=== PATIENT | female | born 1965 | race Hispanic/Latino ===

== ENCOUNTER 2019-09-14 13:21 | Emergency (ER) | payer BC, OTHER ==
[2019-09-14 13:56] LABS: CREATININE 0.7 mg/dL (0.5-1.5); POTASSIUM 3.6 mmol/L (3.5-5.1)
[2019-09-14 14:01] LABS: ALBUMIN 3.4 g/dL (3.5-5.0); BILIRUBIN,TOTAL 0.8 mg/dL (0.2-1.0); TOTAL PROTEIN, SERUM 7.8 g/dL (6.0-8.3)
[2019-09-14 14:05] LABS: INR 1.03 (0.85-1.15); PARTIAL THROMBOPLASTIN TIME 30.6 SEC (26.3-35.5); PROTHROMBIN TIME 10.8 SEC (9.6-11.6)
[2019-09-14 14:20] LABS: APPEARANCE,URINE Clear (CLEAR); BILIRUBIN,URINE Negative (NEGATIVE); COLOR,URINE Yellow (YELLOW); GLUCOSE, URINE (UA) >=1000 mg/dL (NEGATIVE); KETONES,URINE 40 mg/dL (NEGATIVE); LEUKOCYTE ESTERASE ,URINE Trace (NEGATIVE); NITRATE,URINE Positive (NEGATIVE); OCCULT BLOOD,URINE Negative (NEGATIVE); PH,URINE 5.5 (5.0-8.0); PROTEIN,URINE Negative (NEGATIVE)
[2019-09-14 14:25] LABS: BASOPHILS % (AUTO) 0.2 % (0.0-5.0); EOSINOPHILS % (AUTO) 0.1 % (0.0-8.0); HEMATOCRIT 42.9 % (36-48); LYMPHOCYTES % (AUTO) 9.4 % (21.0-51.0); MEAN CORPUSCULAR HGB CONC 34.5 g/dL (32.0-36.0); MEAN CORPUSCULAR VOLUME 95.8 fL (79-99); MONOCYTES % (AUTO) 6.3 % (3.0-13.0); NEUTROPHILS % (AUTO) 83.4 % (40.0-77.0); PLATELET COUNT (AUTO) 194 K/uL (130-400); RED BLOOD CELL COUNT(AUTO) 4.48 MIL/uL (4.00-5.50); RED CELL DISTRIBUTION WIDTH 11.1 % (11.0-15.5); WHITE BLOOD COUNT (AUTO) 8.9 K/uL (4.8-10.8)
[2019-09-14 14:36] LABS: BACTERIA,URINE Many /HPF (None Seen); MUCUS,URINE Few LPF (None Seen); SQUAMOUS EPITHELIAL CELL,UR 0-2 /HPF (0-2)
[2019-09-14 14:37] LABS: AMPHET/METH SCREEN,URINE NEGATIVE (NEGATIVE); BARBITURATE SCREEN, URINE NEGATIVE (NEGATIVE); BENZODIAZEPINES SCREEN,URINE NEGATIVE (NEGATIVE); CANNABINOID SCREEN,URINE NEGATIVE (NEGATIVE); COCAINE SCREEN,URINE NEGATIVE (NEGATIVE); OPIATE SCREEN,URINE NEGATIVE (NEGATIVE); PHENCYCLIDINE SCREEN,URINE NEGATIVE (NEGATIVE)
[2019-09-14] MEDS ORDERED: ONDANSETRON HCL 4 MG/2 ML VIAL ONE (14:54)
[2019-09-14] MEDS ORDERED: KETOROLAC TROMETHAMINE 30MG/ML ONE (14:54)
[2019-09-14] MEDS ORDERED: LEVOFLOXACIN 500 MG/D5W 100 ML 100 ML ONE (14:54)
[2019-09-14] MEDS ORDERED: SODIUM CHLORIDE 0.9% 1000ML 1,000 ML IV ONE (14:56)
== END 2019-09-14 16:34 | disposition home or self-care (01) ==
LOC: EDH 13:21
DX: N39.0 Urinary tract infection, site not specified (principal); E11.65 Type 2 diabetes mellitus with hyperglycemia; E86.0 Dehydration; I10 Essential (primary) hypertension; I25.10 Atherosclerotic heart disease of native coronary artery without angina pectoris; Z88.0 Allergy status to penicillin; Z88.1 Allergy status to other antibiotic agents
CPT/HCPCS: 36415; 71045; 80053; 80305; 81001; 82550; 83605; 83880; 84484; 85025; 85610; 85730; 87040 ×2; 87088 ×2; 87804 ×2; 93005; 96365; 96375; 99285; J1885; J1956; J2405; J7030; 87077; 87186

== ENCOUNTER 2021-08-18 11:40 | Emergency (ER) | payer OTHER, SELFPAY ==
[~2021-08-18] VITALS: Ht 175.3 cm; Wt 88.9 kg
[2021-08-18 11:41] VITALS: BP 98/74
[2021-08-18] MEDS ORDERED: LACTATED RINGERS 1000ML 1,000 ML IV SCH (12:30)
[2021-08-18] MEDS ORDERED: ONDANSETRON 4MG INJ IVP SCH (12:30)
[2021-08-18] MEDS ORDERED: ASPIRIN 325MG TAB PO SCH (12:30)
[2021-08-18] MEDS ORDERED: GUAIFENESIN-CODEINE 5 ML SYRUP PO SCH (12:30)
[2021-08-18 13:10] LABS: BASOPHILS % (AUTO) 0.2 % (0.0-5.0); EOSINOPHILS % (AUTO) 1.7 % (0.0-8.0); HEMATOCRIT 39.8 % (36-48); LYMPHOCYTES % (AUTO) 25.7 % (21.0-51.0); MEAN CORPUSCULAR HEMOGLOBIN 33.7 pg (27.0-33.0); MEAN CORPUSCULAR HGB CONC 34.4 g/dL (32.0-36.0); MONOCYTES % (AUTO) 12.1 % (3.0-13.0); NEUTROPHILS % (AUTO) 59.8 % (40.0-77.0); PLATELET COUNT (AUTO) 158 K/uL (130-400); RED BLOOD CELL COUNT(AUTO) 4.06 MIL/uL (4.00-5.50)
[2021-08-18 13:20] LABS: CREATININE 0.8 mg/dL (0.5-1.5)
[2021-08-18 13:25] LABS: ALBUMIN 3.2 g/dL (3.5-5.0); BILIRUBIN,TOTAL 0.5 mg/dL (0.2-1.0); TOTAL PROTEIN, SERUM 7.4 g/dL (6.0-8.3)
[2021-08-18 13:37] LABS: B-TYPE NATRIURETIC PEPTIDE 13 pg/mL (0-100)
[2021-08-18 14:05] LABS: APPEARANCE,URINE CLOUDY (CLEAR); BILIRUBIN,URINE NEGATIVE (NEGATIVE); COLOR,URINE YELLOW (YELLOW); GLUCOSE, URINE (UA) >=1000 mg/dL (NEGATIVE); KETONES,URINE 15 mg/dL (NEGATIVE); LEUKOCYTE ESTERASE ,URINE TRACE (NEGATIVE); NITRATE,URINE NEGATIVE (NEGATIVE); OCCULT BLOOD,URINE TRACE-INTACT (NEGATIVE); PROTEIN,URINE 100 mg/dL (NEGATIVE); UROBILINOGEN,URINE 0.2 mg/dL (0.2-1.0)
[2021-08-18 14:35] LABS: BACTERIA,URINE Many /HPF (None Seen); MUCUS,URINE Rare LPF (None Seen); RBC,URINE 0-1 /HPF (0-1); SQUAMOUS EPITHELIAL CELL,UR Rare /HPF (0-2); WBC,URINE >100 /HPF (0-1)
[2021-08-18] MEDS ORDERED: AZITHROMYCIN 250 MG TABLET PO ONE (15:30)
[2021-08-18] MEDS ORDERED: BENZ-39 PO (15:44)
[2021-08-18] MEDS ORDERED: IBUP-2070 PO (15:44)
[2021-08-18] MEDS ORDERED: BUDE8.435 NS (15:44)
[2021-08-18] MEDS ORDERED: GUAIFACSF PO (15:44)
[2021-08-18] MEDS ORDERED: METO10TA41 PO (15:44)
[2021-08-18] MEDS ORDERED: AZIT500T4 PO (15:44)
== END 2021-08-18 17:30 | disposition home or self-care (01) ==
LOC: EDH 11:40
DX: U07.1 COVID-19 (principal); J12.82 Pneumonia due to coronavirus disease 2019; E11.9 Type 2 diabetes mellitus without complications; E78.5 Hyperlipidemia, unspecified; I10 Essential (primary) hypertension; Z79.1 Long term (current) use of non-steroidal anti-inflammatories (NSAID); Z79.4 Long term (current) use of insulin; Z79.82 Long term (current) use of aspirin; Z79.899 Other long term (current) drug therapy; Z88.0 Allergy status to penicillin; Z88.1 Allergy status to other antibiotic agents
CPT/HCPCS: 36415; 71045; 80053; 81001; 83880; 84484; 85025; 87077; 87088; 87186; 87635; 87804 ×2; 87880; 96374; 99284; C9803; J2405

== ENCOUNTER 2023-01-31 15:06 | Inpatient (IN) | payer OTHER ==
[~2023-01-31] VITALS: Ht 175.3 cm; Wt 87.4 kg
[~2023-01-31 15:06] MED LIST: AZIT500T4 PO; BENZ-39 PO; BUDE8.435 NS; GUAIFACSF PO; IBUP-2070 PO; METO10TA41 PO
[2023-01-31 16:01] LABS: BASOPHILS % (AUTO) 0.4 % (0.0-5.0); EOSINOPHILS % (AUTO) 3.4 % (0.0-8.0); LYMPHOCYTES % (AUTO) 25.3 % (21.0-51.0); MEAN CORPUSCULAR HEMOGLOBIN 33.9 pg (27.0-33.0); MEAN CORPUSCULAR HGB CONC 33.2 g/dL (32.0-36.0); MONOCYTES % (AUTO) 5.8 % (3.0-13.0); NEUTROPHILS % (AUTO) 64.7 % (40.0-77.0); PLATELET COUNT (AUTO) 196 K/uL (130-400); RED BLOOD CELL COUNT(AUTO) 3.04 MIL/uL (4.00-5.50); RED CELL DISTRIBUTION WIDTH 11.3 % (11.0-15.5); WHITE BLOOD COUNT (AUTO) 7.4 K/uL (4.8-10.8)
[2023-01-31 16:13] LABS: CREATININE 1.5 mg/dL (0.5-1.5); POTASSIUM 3.8 mmol/L (3.5-5.1)
[2023-01-31 16:22] LABS: ALBUMIN 3.1 g/dL (3.5-5.0); TOTAL PROTEIN, SERUM 6.3 g/dL (6.0-8.3)
[2023-01-31] MEDS ORDERED: METOCLOPRAMIDE 10 MG/2 ML VIAL IVP ONE (17:00)
[2023-01-31] MEDS ORDERED: MECLIZINE HCL 25 MG TABLET PO ONE (17:00)
[2023-01-31 17:13] LABS: MAGNESIUM 1.6 mg/dL (1.80-2.40); THYROID STIMULATING HORMONE 1.1 uIU/mL (0.36-3.74)
[2023-01-31 17:43] LABS: APPEARANCE,URINE TURBID (CLEAR); BILIRUBIN,URINE NEGATIVE (NEGATIVE); COLOR,URINE YELLOW (YELLOW); GLUCOSE, URINE (UA) NEGATIVE (NEGATIVE); KETONES,URINE NEGATIVE (NEGATIVE); LEUKOCYTE ESTERASE ,URINE 500 Leu/uL (NEGATIVE); NITRATE,URINE NEGATIVE (NEGATIVE); OCCULT BLOOD,URINE NEGATIVE (NEGATIVE); PROTEIN,URINE 200 mg/dL (NEGATIVE); UROBILINOGEN,URINE 12 mg/dL (0.2-1.0)
[2023-01-31 17:55] LABS: BACTERIA,URINE MANY /HPF (None Seen); MUCUS,URINE MOD LPF (None Seen); SQUAMOUS EPITHELIAL CELL,UR RARE /HPF (0-2); WBC,URINE >100 /HPF (0-1); YEAST,URINE BUDDING FEW /HPF (None Seen)
[2023-01-31] MEDS ORDERED: NITROFURANTOIN MONOHYD/M-CRYST 100 MG CAPSULE PO ONE (18:00)
[2023-01-31] MEDS ORDERED: ONDANSETRON 4MG TABLET PO SCH (18:30)
[2023-01-31] MEDS ORDERED: CEFTRIAXONE 1G VIAL IVPB SCH (18:30)
[2023-01-31] MEDS ORDERED: ATOR10 PO (18:35)
[2023-01-31] MEDS ORDERED: OMEP20CA12 PO (18:35)
[2023-01-31] MEDS ORDERED: METF-444 PO (18:35)
[2023-01-31] MEDS ORDERED: LOSA25TA41 PO (18:35)
[2023-01-31] MEDS ORDERED: GABA-529 PO ×2 (18:35)
[2023-01-31] MEDS ORDERED: ISOS20TA85 PO (18:35)
[2023-01-31] MEDS ORDERED: RANO500T6 PO (18:35)
[2023-01-31] MEDS ORDERED: METO-409 PO (18:35)
[2023-01-31] MEDS ORDERED: GADOTERATE MEGLUMINE 10 MMOL/20 ML VIAL IV ONE (19:50)
[2023-01-31] MEDS: INSULIN HUMULIN R 100 UNIT/ML 3ML SQ SCH (21:00)
[2023-01-31 22:45] VITALS: BP 152/84; PULSE 85; RESP 19
[2023-02-01] MEDS: ACETAMINOPHEN 325 MG TAB PO PRN (03:45)
[2023-02-01 04:00] VITALS: BP 169/94; PULSE 89; RESP 18
[2023-02-01 05:20] LABS: BASOPHILS % (AUTO) 0.3 % (0.0-5.0); EOSINOPHILS % (AUTO) 4.3 % (0.0-8.0); HEMATOCRIT 29.5 % (36-48); MEAN CORPUSCULAR HEMOGLOBIN 33.7 pg (27.0-33.0); MEAN CORPUSCULAR HGB CONC 32.9 g/dL (32.0-36.0); MEAN CORPUSCULAR VOLUME 102.4 fL (79-99); MONOCYTES % (AUTO) 6.6 % (3.0-13.0); NEUTROPHILS % (AUTO) 55.5 % (40.0-77.0); PLATELET COUNT (AUTO) 199 K/uL (130-400); RED BLOOD CELL COUNT(AUTO) 2.88 MIL/uL (4.00-5.50); RED CELL DISTRIBUTION WIDTH 11.2 % (11.0-15.5)
[2023-02-01] MEDS: INSULIN HUMULIN R 100 UNIT/ML 3ML SQ SCH ×4 (05:30→20:20)
[2023-02-01 05:59] LABS: CREATININE 1.3 mg/dL (0.5-1.5); MAGNESIUM 1.8 mg/dL (1.80-2.40); PHOSPHORUS 4.7 mg/dL (2.5-4.9); POTASSIUM 3.8 mmol/L (3.5-5.1)
[2023-02-01 08:00] VITALS: BP 136/77; PULSE 85; RESP 16
[2023-02-01] MEDS: ASPIRIN 81 MG EC TAB PO SCH (08:47)
[2023-02-01] MEDS: MECLIZINE HCL 25 MG TABLET PO PRN ×2 (08:47→21:18)
[2023-02-01] MEDS: ENOXAPARIN SODIUM 30 MG/0.3 ML SQ SCH (08:48)
[2023-02-01 11:44] VITALS: BP 154/87; PULSE 88; RESP 16
[2023-02-01 16:00] VITALS: BP 167/87; PULSE 92; RESP 18
[2023-02-01] MEDS ORDERED: METOPROLOL SUCCINATE 50 MG TAB.SR.24H PO ONE (17:30)
[2023-02-01] MEDS ORDERED: LOSARTAN 25 MG TABLET PO ONE (17:30)
[2023-02-01] MEDS: RANOLAZINE 500 MG TAB.SR.12H PO SCH (19:45)
[2023-02-01] MEDS: GABAPENTIN 100 MG CAPSULE PO SCH (19:46)
[2023-02-01] MEDS ORDERED: HYDRALAZINE 20MG/ML VIAL IV PRN (20:30)
[2023-02-01] MEDS: HYDRALAZINE HCL 10 MG TABLET PO SCH (22:00)
[2023-02-01] MEDS: ONDANSETRON 4MG TABLET PO PRN (23:09)
[2023-02-02] VITALS (13 sets, daily range): BP systolic 80–194; BP diastolic 37–94; PULSE 84–102; RESP 16–18
[2023-02-02] MEDS: HYDRALAZINE HCL 10 MG TABLET PO SCH ×3 (04:28→20:28)
[2023-02-02] MEDS: INSULIN HUMULIN R 100 UNIT/ML 3ML SQ SCH ×4 (05:39→20:25)
[2023-02-02] MEDS: ATORVASTATIN 10 MG TABLET PO SCH (08:31)
[2023-02-02] MEDS: ASPIRIN 81 MG EC TAB PO SCH (08:31)
[2023-02-02] MEDS: PANTOPRAZOLE 40 MG TAB DR PO SCH (08:31)
[2023-02-02] MEDS: MECLIZINE HCL 25 MG TABLET PO PRN (08:31)
[2023-02-02] MEDS: ENOXAPARIN SODIUM 30 MG/0.3 ML SQ SCH (08:49)
[2023-02-02] MEDS ORDERED: NON-FORMULARY MEDICATION 1 EACH (Omeprazole 20 MG) PO SCH (09:00)
[2023-02-02] MEDS ORDERED: NON-FORMULARY MEDICATION 1 EACH (Metoprolol Succinate 100 MG) PO SCH (09:00)
[2023-02-02] MEDS: GABAPENTIN 100 MG CAPSULE PO SCH ×2 (19:52→20:26)
[2023-02-02] MEDS: RANOLAZINE 500 MG TAB.SR.12H PO SCH ×2 (20:26→20:30)
[2023-02-02] MEDS: ISOSORBIDE MONONITRATE 20 MG TABLET PO SCH (20:26)
[2023-02-02] MEDS: LOSARTAN 25 MG TABLET PO SCH (20:26)
[2023-02-02] MEDS: METOPROLOL SUCCINATE 50 MG TAB.SR.24H PO SCH (20:26)
[2023-02-02] MEDS: ONDANSETRON 4MG TABLET PO PRN (20:50)
[2023-02-03] VITALS (12 sets, daily range): BP systolic 107–196; BP diastolic 49–89; PULSE 79–98; RESP 16–18
[2023-02-03] MEDS: MECLIZINE HCL 25 MG TABLET PO PRN ×3 (01:30→21:53)
[2023-02-03 04:24] LABS: MEAN CORPUSCULAR HEMOGLOBIN 33.6 pg (27.0-33.0); MEAN CORPUSCULAR HGB CONC 32.7 g/dL (32.0-36.0); MEAN CORPUSCULAR VOLUME 102.8 fL (79-99); RED BLOOD CELL COUNT(AUTO) 3.21 MIL/uL (4.00-5.50); RED CELL DISTRIBUTION WIDTH 11.3 % (11.0-15.5); WHITE BLOOD COUNT (AUTO) 7.6 K/uL (4.8-10.8)
[2023-02-03 04:36] LABS: CREATININE 0.9 mg/dL (0.5-1.5); MAGNESIUM 1.7 mg/dL (1.80-2.40); POTASSIUM 3.5 mmol/L (3.5-5.1)
[2023-02-03 05:28] LABS: INR 0.98 (0.85-1.15); PROTHROMBIN TIME 11.4 SEC (9.6-11.6)
[2023-02-03] MEDS: INSULIN HUMULIN R 100 UNIT/ML 3ML SQ SCH ×4 (05:44→19:59)
[2023-02-03] MEDS ORDERED: REGADENOSON 0.4 MG/5 ML PF SYG IVP SCH (07:00)
[2023-02-03] MEDS ORDERED: MIDAZOLAM HCL 1 MG/ML 2ML VIAL ONE (08:39)
[2023-02-03] MEDS ORDERED: LIDOCAINE HCL 400MG/20ML VIAL ONE (08:39)
[2023-02-03] MEDS ORDERED: FENTANYL CITRATE PF 50 MCG/1 ML 2ML VIAL ONE (08:39)
[2023-02-03] MEDS ORDERED: OCTYL 2-CYANOACRYLATE 1 EACH TP ONE (08:51)
[2023-02-03] MEDS: ONDANSETRON 4MG TABLET PO PRN (09:29)
[2023-02-03] MEDS: PANTOPRAZOLE 40 MG TAB DR PO SCH (09:29)
[2023-02-03] MEDS: ATORVASTATIN 10 MG TABLET PO SCH (09:29)
[2023-02-03] MEDS: ASPIRIN 81 MG EC TAB PO SCH (09:29)
[2023-02-03] MEDS: ACETAMINOPHEN 325 MG TAB PO PRN (09:30)
[2023-02-03] MEDS: ENOXAPARIN SODIUM 30 MG/0.3 ML SQ SCH (09:35)
[2023-02-03] MEDS: CEFUROXIME AXETIL 250 MG TABLET PO SCH ×2 (11:42→21:08)
[2023-02-03] MEDS: ISOSORBIDE MONONITRATE 20 MG TABLET PO SCH (12:20)
[2023-02-03] MEDS: METOPROLOL SUCCINATE 50 MG TAB.SR.24H PO SCH (12:20)
[2023-02-03] MEDS: GABAPENTIN 100 MG CAPSULE PO SCH ×2 (13:50→21:07)
[2023-02-03] MEDS: LOSARTAN 25 MG TABLET PO SCH (15:43)
[2023-02-03] MEDS: RANOLAZINE 500 MG TAB.SR.12H PO SCH ×2 (15:44→21:08)
[2023-02-03] MEDS: HYDRALAZINE HCL 10 MG TABLET PO SCH ×2 (20:44→21:55)
[2023-02-04] VITALS (9 sets, daily range): BP systolic 77–158; BP diastolic 42–83; PULSE 74–91; RESP 16–20
[2023-02-04] MEDS: INSULIN HUMULIN R 100 UNIT/ML 3ML SQ SCH ×4 (05:12→20:30)
[2023-02-04] MEDS: HYDRALAZINE HCL 10 MG TABLET PO SCH ×3 (05:20→20:37)
[2023-02-04] MEDS: ACETAMINOPHEN 325 MG TAB PO PRN (05:32)
[2023-02-04] MEDS: ASPIRIN 81 MG EC TAB PO SCH (09:15)
[2023-02-04] MEDS: ISOSORBIDE MONONITRATE 20 MG TABLET PO SCH (09:16)
[2023-02-04] MEDS: LOSARTAN 25 MG TABLET PO SCH (09:17)
[2023-02-04] MEDS: METOPROLOL SUCCINATE 50 MG TAB.SR.24H PO SCH (09:17)
[2023-02-04] MEDS: RANOLAZINE 500 MG TAB.SR.12H PO SCH ×2 (09:17→20:33)
[2023-02-04] MEDS: PANTOPRAZOLE 40 MG TAB DR PO SCH (09:18)
[2023-02-04] MEDS: GABAPENTIN 100 MG CAPSULE PO SCH ×2 (09:18→20:33)
[2023-02-04] MEDS: CEFUROXIME AXETIL 250 MG TABLET PO SCH ×2 (09:19→20:33)
[2023-02-04] MEDS: ATORVASTATIN 10 MG TABLET PO SCH (09:19)
[2023-02-04] MEDS: ENOXAPARIN SODIUM 30 MG/0.3 ML SQ SCH (09:20)
[2023-02-04] MEDS: MECLIZINE HCL 25 MG TABLET PO PRN ×2 (14:45→20:33)
[2023-02-05] VITALS: BP 156/83; PULSE 85; RESP 18
[2023-02-05 04:00] VITALS: BP 158/84; PULSE 89; RESP 18
[2023-02-05] MEDS: HYDRALAZINE HCL 10 MG TABLET PO SCH ×2 (05:46→14:00)
[2023-02-05] MEDS: INSULIN HUMULIN R 100 UNIT/ML 3ML SQ SCH ×3 (06:32→16:30)
[2023-02-05 08:13] VITALS: BP 146/69; PULSE 85; RESP 17
[2023-02-05] MEDS ORDERED: ISOSORBIDE MONONITRATE 20 MG TABLET PO SCH (09:00)
[2023-02-05] MEDS: ENOXAPARIN SODIUM 30 MG/0.3 ML SQ SCH (09:30)
[2023-02-05] MEDS: ASPIRIN 81 MG EC TAB PO SCH (09:31)
[2023-02-05] MEDS: CEFUROXIME AXETIL 250 MG TABLET PO SCH (09:31)
[2023-02-05] MEDS: PANTOPRAZOLE 40 MG TAB DR PO SCH (09:31)
[2023-02-05] MEDS: GABAPENTIN 100 MG CAPSULE PO SCH (09:32)
[2023-02-05] MEDS: ATORVASTATIN 10 MG TABLET PO SCH (09:32)
[2023-02-05] MEDS: RANOLAZINE 500 MG TAB.SR.12H PO SCH (09:32)
[2023-02-05] MEDS: LOSARTAN 25 MG TABLET PO SCH (09:33)
[2023-02-05] MEDS: METOPROLOL SUCCINATE 50 MG TAB.SR.24H PO SCH (09:34)
[2023-02-05 10:38] LABS: HEMATOCRIT 29.5 % (36-48); MEAN CORPUSCULAR HEMOGLOBIN 33.8 pg (27.0-33.0); MEAN CORPUSCULAR HGB CONC 32.9 g/dL (32.0-36.0); MEAN CORPUSCULAR VOLUME 102.8 fL (79-99); RED BLOOD CELL COUNT(AUTO) 2.87 MIL/uL (4.00-5.50); RED CELL DISTRIBUTION WIDTH 11.1 % (11.0-15.5); WHITE BLOOD COUNT (AUTO) 7.2 K/uL (4.8-10.8)
[2023-02-05 10:48] LABS: CREATININE 0.9 mg/dL (0.5-1.5); POTASSIUM 3.8 mmol/L (3.5-5.1)
[2023-02-05 11:57] VITALS: BP 159/78; PULSE 87; RESP 17
[2023-02-05 11:58] VITALS: BP_SYST 73; BP_SYST 98; BP_DIAS 32; BP_DIAS 62; PULSE 56; PULSE 92
[2023-02-05 17:26] VITALS: BP 150/81; PULSE 85; RESP 18
== END 2023-02-05 18:20 | disposition home or self-care (01) | DRG 312 ==
LOC: EDH 15:06 → EDHIP 15:07 → 3AH 22:46
PROVIDERS: ADMIT Internal Medicine Infectious Disease; ATTEND Internal Medicine Infectious Disease
DX: R55 Syncope and collapse (principal); I25.10 Atherosclerotic heart disease of native coronary artery without angina pectoris; E86.0 Dehydration; E11.9 Type 2 diabetes mellitus without complications; I10 Essential (primary) hypertension; E66.09 Other obesity due to excess calories; E78.00 Pure hypercholesterolemia, unspecified; Z91.199 Patient's noncompliance with other medical treatment and regimen due to unspecified reason; Z83.3 Family history of diabetes mellitus; Z68.28 Body mass index [BMI] 28.0-28.9, adult
CPT/HCPCS: 33285; 36415; 70450; 70553; 71045; 78452; 80048; 80053; 81001; 82948; 83735; 84100; 84443; 84484; 85025; 85027; 85610; 87077; 87088; 87186; 93005; 93017; 96374; 97039; 99156; 99157; A9500; G0378; J0360; J0696; J1650; J2250; J2765; J2785; J3010; J3490; Q0162

== ENCOUNTER 2023-04-01 08:06 | Inpatient (IN) | payer OTHER ==
[~2023-04-01] VITALS: Ht 175.3 cm; Wt 90.4 kg
[~2023-04-01 08:06] MED LIST changes: +ATOR10 PO; -AZIT500T4 PO; +GABA-529 PO; -GUAIFACSF PO; +ISOS20TA85 PO; +LOSA25TA41 PO; +METF-444 PO; +METO-409 PO; +OMEP20CA12 PO; +RANO500T6 PO
[2023-04-01] MEDS ORDERED: NITROGLYCERIN 1GM OINT 1 INCH/1GM TD ONE (09:00)
[2023-04-01] MEDS ORDERED: FUROSEMIDE 40MG VIAL IV ONE (09:00)
[2023-04-01] MEDS ORDERED: ASPIRIN 325MG TAB PO ONE (09:00)
[2023-04-01] MEDS ORDERED: ALBUTEROL 0.083% 2.5 MG/3 ML INH IH ONE (09:00)
[2023-04-01 09:05] LABS: SARS-CoV-2, RNA, NAAT NEGATIVE SARS CoV-2 (NEGATIVE)
[2023-04-01 09:07] LABS: INFLUENZA TYPE A Negative For Type A (NEGATIVE); INFLUENZA TYPE B Negative For Type B (NEGATIVE)
[2023-04-01 09:18] LABS: BASOPHILS # (AUTO) 0.05 K/uL (0.00-0.20); BASOPHILS % (AUTO) 0.6 % (0.0-5.0); EOSINOPHILS # (AUTO) 0.32 K/uL (0.00-0.70); IMMATURE GRANULOCYTE ABSOLUTE 0.05 K/uL (0-1); MEAN CORPUSCULAR HEMOGLOBIN 34.1 pg (27.0-33.0); MEAN CORPUSCULAR HGB CONC 32.6 g/dL (32.0-36.0); MEAN CORPUSCULAR VOLUME 104.8 fL (79-99); MONOCYTES # (AUTO) 0.5 K/uL (0.1-1.0); MONOCYTES % (AUTO) 6.5 % (3.0-13.0); NEUTROPHILS % (AUTO) 63.3 % (40.0-77.0); PLATELET COUNT (AUTO) 213 K/uL (130-400); RED BLOOD CELL COUNT(AUTO) 3.34 MIL/uL (4.00-5.50); RED CELL DISTRIBUTION WIDTH 11.5 % (11.0-15.5)
[2023-04-01 09:25] LABS: CREATININE 0.7 mg/dL (0.5-1.5); POTASSIUM 4.3 mmol/L (3.5-5.1)
[2023-04-01] MEDS ORDERED: ONDANSETRON 4MG INJ IVP ONE (09:30)
[2023-04-01 09:52] LABS: APPEARANCE,URINE CLEAR (CLEAR); BILIRUBIN,URINE NEGATIVE (NEGATIVE); COLOR,URINE LIGHT-YELLOW (YELLOW); GLUCOSE, URINE (UA) 30 mg/dL (NEGATIVE); KETONES,URINE NEGATIVE (NEGATIVE); LEUKOCYTE ESTERASE ,URINE 75 Leu/uL (NEGATIVE); NITRATE,URINE 2+ (NEGATIVE); OCCULT BLOOD,URINE SMALL (NEGATIVE); PH,URINE 5.5 (5.0-8.0); PROTEIN,URINE 100 mg/dL (NEGATIVE); UROBILINOGEN,URINE 0.2 mg/dL (0.2-1.0)
[2023-04-01 10:31] LABS: ADD UA MICROSCOPIC YES
[2023-04-01 11:10] LABS: BACTERIA,URINE MOD /HPF (None Seen); MUCUS,URINE RARE LPF (None Seen); OTHER CASTS, URINE 1 /LPF (None Seen); RBC,URINE 0-1 /HPF (0-1); SQUAMOUS EPITHELIAL CELL,UR RARE /HPF (0-2)
[2023-04-01] MEDS ORDERED: ACETAMINOPHEN 325 MG TAB PO PRN (17:00)
[2023-04-01] MEDS ORDERED: LACTULOSE 20 GM/30 ML UDCUP PO PRN (17:00)
[2023-04-01] MEDS: AZITHROMYCIN 500MG+NS 250ML IVPB SCH (18:09)
[2023-04-01] MEDS: FAMOTIDINE 20MG TAB PO SCH (21:26)
[2023-04-01] MEDS: FUROSEMIDE 20MG VIAL IV SCH (21:26)
[2023-04-01] MEDS: NITROGLYCERIN 1GM OINT 1 INCH/1GM TD SCH (22:05)
[2023-04-02] MEDS ORDERED: LOSA50TA64 PO (00:40)
[2023-04-02] MEDS ORDERED: INSU100V12 SQ (00:40)
[2023-04-02] MEDS ORDERED: OZEMPIC SQ (00:40)
[2023-04-02 01:00] VITALS: BP 179/95; PULSE 82; RESP 20
[2023-04-02 03:58] VITALS: BP 177/75; PULSE 82; RESP 16
[2023-04-02 05:30] LABS: HEMATOCRIT 31.2 % (36-48); MEAN CORPUSCULAR HGB CONC 32.4 g/dL (32.0-36.0); MEAN CORPUSCULAR VOLUME 105.1 fL (79-99); PLATELET COUNT (AUTO) 188 K/uL (130-400); RED BLOOD CELL COUNT(AUTO) 2.97 MIL/uL (4.00-5.50); RED CELL DISTRIBUTION WIDTH 11.6 % (11.0-15.5); WHITE BLOOD COUNT (AUTO) 6.9 K/uL (4.8-10.8)
[2023-04-02] MEDS: NITROGLYCERIN 1GM OINT 1 INCH/1GM TD SCH ×2 (05:31→12:13)
[2023-04-02] MEDS: ACETAMINOPHEN 325 MG TAB PO PRN (05:48)
[2023-04-02 05:49] LABS: ALBUMIN 2.8 g/dL (3.5-5.0); BILIRUBIN,TOTAL 0.3 mg/dL (0.2-1.0); CREATININE 0.9 mg/dL (0.5-1.5); POTASSIUM 4.1 mmol/L (3.5-5.1); TOTAL PROTEIN, SERUM 5.7 g/dL (6.0-8.3)
[2023-04-02 08:00] VITALS: BP 187/94; PULSE 77; RESP 18
[2023-04-02] MEDS: FAMOTIDINE 20MG TAB PO SCH ×2 (08:19→20:28)
[2023-04-02] MEDS: ENOXAPARIN SODIUM 40 MG/0.4 ML SYRINGE SQ SCH (08:19)
[2023-04-02] MEDS: FUROSEMIDE 20MG VIAL IV SCH (08:19)
[2023-04-02] MEDS: METOPROLOL SUCCINATE 50 MG TAB.SR.24H PO SCH (08:23)
[2023-04-02] MEDS ORDERED: LOSARTAN 50 MG TABLET PO SCH (09:00)
[2023-04-02] MEDS ORDERED: ISOSORBIDE MONONITRATE 20 MG TABLET PO SCH (09:00)
[2023-04-02] MEDS ORDERED: METOPROLOL SUCCINATE 50 MG TAB.SR.24H PO ONE (10:00)
[2023-04-02 11:32] VITALS: BP 172/94; PULSE 82; RESP 18
[2023-04-02] MEDS: HYDRALAZINE 20MG/ML VIAL IV PRN (12:14)
[2023-04-02 16:00] VITALS: BP 122/74; PULSE 88; RESP 20
[2023-04-02] MEDS: AZITHROMYCIN 500MG+NS 250ML IVPB SCH (16:58)
[2023-04-02] MEDS: ONDANSETRON 4MG INJ IV PRN (17:29)
[2023-04-02 20:00] VITALS: BP 157/85; PULSE 89; RESP 16
[2023-04-02] MEDS: LOSARTAN 50 MG TABLET PO SCH (20:28)
[2023-04-03] VITALS: BP 154/85; PULSE 95; RESP 15
[2023-04-03 04:00] VITALS: BP 154/87; PULSE 94; RESP 14
[2023-04-03 08:00] VITALS: BP 189/83; PULSE 90; RESP 18; O2SAT 96
[2023-04-03] MEDS ORDERED: FUROSEMIDE 20MG VIAL IV SCH (09:00)
[2023-04-03] MEDS ORDERED: ISOSORBIDE MONO 60MG SR TAB PO SCH (09:00)
[2023-04-03] MEDS ORDERED: FUROSEMIDE 40 MG TABLET PO SCH (09:00)
[2023-04-03] MEDS: FAMOTIDINE 20MG TAB PO SCH (09:33)
[2023-04-03] MEDS: METOPROLOL SUCCINATE 50 MG TAB.SR.24H PO SCH (09:33)
[2023-04-03] MEDS: LOSARTAN 50 MG TABLET PO SCH (09:33)
[2023-04-03] MEDS: ENOXAPARIN SODIUM 40 MG/0.4 ML SYRINGE SQ SCH (09:34)
[2023-04-03] MEDS ORDERED: METOPROLOL SUCCINATE 50 MG TAB.SR.24H PO ONE (10:00)
[2023-04-03] MEDS: ACETAMINOPHEN 325 MG TAB PO PRN (10:30)
[2023-04-03 12:00] VITALS: BP 183/82; PULSE 94; RESP 18
[2023-04-03] MEDS: ONDANSETRON 4MG INJ IV PRN (12:12)
[2023-04-03 13:34] VITALS: BP 162/81; PULSE 79; RESP 18
[2023-04-03] MEDS: HYDRALAZINE 20MG/ML VIAL IV PRN (14:33)
[2023-04-03] MEDS ORDERED: FURO20TA6 PO (15:20)
[2023-04-03] MEDS ORDERED: AZIT500T4 PO (15:20)
== END 2023-04-03 16:40 | disposition home or self-care (01) | DRG 291 ==
LOC: EDH 08:06 → EDHIP 16:33 → 4CH 04-02 00:28
PROVIDERS: ADMIT Hospitalist; ATTEND Hospitalist
DX: I11.0 Hypertensive heart disease with heart failure (principal); I50.33 Acute on chronic diastolic (congestive) heart failure; I16.1 Hypertensive emergency; N39.0 Urinary tract infection, site not specified; E11.40 Type 2 diabetes mellitus with diabetic neuropathy, unspecified; E66.09 Other obesity due to excess calories; K21.9 Gastro-esophageal reflux disease without esophagitis; B96.20 Unspecified Escherichia coli [E. coli] as the cause of diseases classified elsewhere; E78.5 Hyperlipidemia, unspecified; J45.909 Unspecified asthma, uncomplicated; Z90.710 Acquired absence of both cervix and uterus; Z68.29 Body mass index [BMI] 29.0-29.9, adult
CPT/HCPCS: 36415; 71045; 80048; 80053; 81001; 82550; 82948; 83605; 83874; 83880; 84484; 85025; 85027; 87077; 87088; 87186; 87635; 87804; 93005; 93306; 93970; 94010; C9803; G0378; J0360; J0456; J1650; J1940; J2405

== ENCOUNTER 2023-09-27 18:37 | Inpatient (IN) | payer OTHER ==
[~2023-09-27] VITALS: Ht 175.3 cm; Wt 100.9 kg
[~2023-09-27 18:37] MED LIST changes: +AMLO5TAB4 PO; -BENZ-39 PO; -BUDE8.435 NS; +CLON0.1T PO; +CLOP-31 PO; +FURO40TA7 PO; -IBUP-2070 PO; +INSU100V12 SQ; -LOSA25TA41 PO; -METO-409 PO; -METO10TA41 PO; +METO25 PO; +NITR0.4T50 SL; +SACU1TAB PO; +SPIR25TA6 PO
[2023-09-27 19:09] LABS: BASOPHILS # (AUTO) 0.05 K/uL (0.00-0.20); BASOPHILS % (AUTO) 0.8 % (0.0-5.0); EOSINOPHILS # (AUTO) 0.32 K/uL (0.00-0.70); EOSINOPHILS % (AUTO) 5.1 % (0.0-8.0); HEMATOCRIT 35.1 % (36-48); IMMATURE GRANULOCYTE ABSOLUTE 0.04 K/uL (0-1); LYMPHOCYTES # (AUTO) 1.4 K/uL (1.0-4.8); LYMPHOCYTES % (AUTO) 21.6 % (21.0-51.0); MEAN CORPUSCULAR HEMOGLOBIN 33.9 pg (27.0-33.0); MEAN CORPUSCULAR HGB CONC 32.2 g/dL (32.0-36.0); MEAN CORPUSCULAR VOLUME 105.4 fL (79-99); MONOCYTES # (AUTO) 0.6 K/uL (0.1-1.0); MONOCYTES % (AUTO) 9.8 % (3.0-13.0); NEUTROPHILS # (AUTO) 3.9 K/uL (1.8-7.7); NEUTROPHILS % (AUTO) 62.1 % (40.0-77.0); PLATELET COUNT (AUTO) 247 K/uL (130-400); RED BLOOD CELL COUNT(AUTO) 3.33 MIL/uL (4.00-5.50); RED CELL DISTRIBUTION WIDTH 12.8 % (11.0-15.5); WHITE BLOOD COUNT (AUTO) 6.3 K/uL (4.8-10.8)
[2023-09-27 19:31] LABS: CREATININE 0.9 mg/dL (0.5-1.5); POTASSIUM 4.5 mmol/L (3.5-5.1)
[2023-09-27 19:33] LABS: B-TYPE NATRIURETIC PEPTIDE 502 pg/mL (0-100)
[2023-09-27] MEDS: SOLU-MEDROL 125MG VIAL IVP ONE (19:33)
[2023-09-27] MEDS: NITROGLYCERIN 1GM OINT 1 INCH/1GM TD ONE (19:33)
[2023-09-27] MEDS: MORPHINE 2 MG SYG IVP ONE (19:34)
[2023-09-27 19:38] LABS: ALBUMIN 2.8 g/dL (3.5-5.0); BILIRUBIN,TOTAL 0.2 mg/dL (0.2-1.0); TOTAL PROTEIN, SERUM 6.3 g/dL (6.0-8.3)
[2023-09-27 19:39] VITALS: PULSE 83; RESP 16
[2023-09-27] MEDS: IPRATROPIUM/ALBUTEROL SULFATE 3 ML SOLUTION IH ONE (19:39)
[2023-09-27 19:50] VITALS: PULSE 82; RESP 16
[2023-09-27] MEDS: HYDRALAZINE 20MG/ML VIAL IV ONE (20:30)
[2023-09-27] MEDS: MAGNESIUM 2GM PREMIX 50ML 50 ML IV ONE (20:46)
[2023-09-27] MEDS: CEFTRIAXONE 1G VIAL IVPB SCH (22:19)
[2023-09-27 22:50] VITALS: PULSE 88; RESP 16
[2023-09-27] MEDS: IPRATROPIUM/ALBUTEROL SULFATE 3 ML SOLUTION IH SCH (22:50)
[2023-09-27 22:52] VITALS: PULSE 89; RESP 18; O2SAT 96
[2023-09-27] MEDS: ACETAMINOPHEN 325 MG TAB PO PRN (23:53)
[2023-09-28] VITALS (13 sets, daily range): BP systolic 152–175; BP diastolic 79–81; PULSE 80–110; RESP 16–20; O2SAT 96–98
[2023-09-28] MEDS: FUROSEMIDE 40MG VIAL IV SCH (06:25)
[2023-09-28 07:17] LABS: BASOPHILS # (AUTO) 0.01 K/uL (0.00-0.20); BASOPHILS % (AUTO) 0.2 % (0.0-5.0); HEMATOCRIT 34.2 % (36-48); IMMATURE GRANULOCYTE ABSOLUTE 0.06 K/uL (0-1); LYMPHOCYTES # (AUTO) 0.5 K/uL (1.0-4.8); MEAN CORPUSCULAR HEMOGLOBIN 33.7 pg (27.0-33.0); MEAN CORPUSCULAR HGB CONC 32.5 g/dL (32.0-36.0); MONOCYTES # (AUTO) 0.1 K/uL (0.1-1.0); MONOCYTES % (AUTO) 0.8 % (3.0-13.0); NEUTROPHILS # (AUTO) 5.7 K/uL (1.8-7.7); NEUTROPHILS % (AUTO) 90.1 % (40.0-77.0); PLATELET COUNT (AUTO) 235 K/uL (130-400); RED BLOOD CELL COUNT(AUTO) 3.29 MIL/uL (4.00-5.50); RED CELL DISTRIBUTION WIDTH 12.7 % (11.0-15.5); WHITE BLOOD COUNT (AUTO) 6.3 K/uL (4.8-10.8)
[2023-09-28 07:28] LABS: CREATININE 1.3 mg/dL (0.5-1.5); MAGNESIUM 2.8 mg/dL (1.80-2.40)
[2023-09-28] MEDS: ONDANSETRON 4MG INJ IVP PRN (08:02)
[2023-09-28] MEDS: MORPHINE 2 MG SYG IVP PRN (08:03)
[2023-09-28] MEDS: SOLU-MEDROL 40MG VIAL IVP SCH (08:29)
[2023-09-28] MEDS: DOXYCYCLINE HYCLATE 100 MG TABLET PO SCH (08:29)
[2023-09-28] MEDS: ENOXAPARIN SODIUM 30 MG/0.3 ML SQ SCH (08:30)
[2023-09-28] MEDS ORDERED: KCL 20 MEQ ERTAB PO PRN (08:30)
[2023-09-28] MEDS ORDERED: MAGNESIUM 2GM PREMIX 50ML 50 ML IV PRN (08:30)
[2023-09-28] MEDS ORDERED: POTASSIUM CHLORIDE 20MEQ/100ML 100 ML IV PRN ×2 (08:30)
[2023-09-28] MEDS ORDERED: POTASSIUM CHLORIDE 10% ELIXIR 20 MEQ/15 ML UDCUP PO PRN (08:30)
[2023-09-28 09:07] LABS: COVID19 (SARS ANTIGEN RAPID) PRESUMPTIVE NEGATIVE (NEGATIVE); INFLUENZA TYPE A Negative For Type A (NEGATIVE); INFLUENZA TYPE B Negative For Type B (NEGATIVE)
[2023-09-28 10:26] LABS: HEMOGLOBIN A1C 7.4 % (4.0-6.0)
[2023-09-28] MEDS: HYDRALAZINE 20MG/ML VIAL IV PRN (10:41)
[2023-09-28] MEDS: INSULIN HUMULIN R 100 UNIT/ML 3ML SQ SCH ×2 (11:47→17:40)
[2023-09-28] MEDS ORDERED: DEXTROSE 50%-WATER 50 ML DISP.SYRIN IV PRN (16:30)
[2023-09-28] MEDS ORDERED: GLUCAGON 1MG KIT 1 MG ML IM PRN (16:30)
[2023-09-28] MEDS ORDERED: VERI2.5T PO (17:04)
[2023-09-28] MEDS ORDERED: ALBU90AE2 IH (17:04)
[2023-09-28] MEDS ORDERED: CYAN-106 PO (17:04)
[2023-09-28] MEDS: GUAIFENESIN SUGAR-FREE 100 MG/5 ML UDCUP PO PRN (18:37)
[2023-09-28] MEDS: IPRATROPIUM/ALBUTEROL SULFATE 3 ML SOLUTION IH SCH (18:57)
[2023-09-28] MEDS: METOPROLOL TARTRATE 25 MG TAB PO SCH (20:34)
[2023-09-28] MEDS: SACUBITRIL/VALSARTAN 1 EACH TABLET PO SCH (22:13)
[2023-09-28] MEDS: AMLODIPINE 5 MG TAB PO SCH (22:13)
[2023-09-28 23:18] LABS: APPEARANCE,URINE CLEAR (CLEAR); BILIRUBIN,URINE NEGATIVE (NEGATIVE); COLOR,URINE LIGHT-YELLOW (YELLOW); GLUCOSE, URINE (UA) 200 mg/dL (NEGATIVE); KETONES,URINE NEGATIVE (NEGATIVE); LEUKOCYTE ESTERASE ,URINE NEGATIVE Leu/uL (NEGATIVE); NITRATE,URINE NEGATIVE (NEGATIVE); OCCULT BLOOD,URINE SMALL (NEGATIVE); PH,URINE 5.5 (5.0-8.0); PROTEIN,URINE 200 mg/dL (NEGATIVE); UROBILINOGEN,URINE 0.2 mg/dL (0.2-1.0)
[2023-09-28 23:26] LABS: ADD UA MICROSCOPIC YES
[2023-09-28 23:29] LABS: SQUAMOUS EPITHELIAL CELL,UR RARE /HPF (0-2)
[2023-09-29] VITALS (14 sets, daily range): BP systolic 100–158; BP diastolic 61–103; PULSE 68–103; RESP 18–22; O2SAT 94–100
[2023-09-29] MEDS: ALPRAZOLAM 0.5 MG TABLET PO PRN (02:00)
[2023-09-29 04:29] LABS: BASOPHILS # (AUTO) 0.01 K/uL (0.00-0.20); BASOPHILS % (AUTO) 0.1 % (0.0-5.0); HEMATOCRIT 31.9 % (36-48); LYMPHOCYTES # (AUTO) 0.6 K/uL (1.0-4.8); LYMPHOCYTES % (AUTO) 5.8 % (21.0-51.0); MEAN CORPUSCULAR HEMOGLOBIN 33.9 pg (27.0-33.0); MEAN CORPUSCULAR HGB CONC 32.6 g/dL (32.0-36.0); MEAN CORPUSCULAR VOLUME 103.9 fL (79-99); MONOCYTES # (AUTO) 0.3 K/uL (0.1-1.0); MONOCYTES % (AUTO) 2.6 % (3.0-13.0); NEUTROPHILS # (AUTO) 9.4 K/uL (1.8-7.7); NEUTROPHILS % (AUTO) 90.5 % (40.0-77.0); PLATELET COUNT (AUTO) 204 K/uL (130-400); RED BLOOD CELL COUNT(AUTO) 3.07 MIL/uL (4.00-5.50); RED CELL DISTRIBUTION WIDTH 12.9 % (11.0-15.5); WHITE BLOOD COUNT (AUTO) 10.3 K/uL (4.8-10.8)
[2023-09-29 04:48] LABS: ALBUMIN 2.5 g/dL (3.5-5.0); BILIRUBIN,TOTAL 0.2 mg/dL (0.2-1.0); CREATININE 1.3 mg/dL (0.5-1.5); POTASSIUM 5.3 mmol/L (3.5-5.1); TOTAL PROTEIN, SERUM 5.8 g/dL (6.0-8.3)
[2023-09-29] MEDS: BENZONATATE 100 MG CAPSULE PO PRN (08:29)
[2023-09-29] MEDS: ATORVASTATIN 20 MG TABLET PO SCH (08:30)
[2023-09-29] MEDS: GABAPENTIN 300 MG CAPSULE PO SCH ×2 (08:30→20:41)
[2023-09-29] MEDS: METFORMIN HCL 500 MG TABLET PO SCH (08:31)
[2023-09-29] MEDS: CLOPIDOGREL 75MG TAB PO SCH (08:32)
[2023-09-29] MEDS: CYANOCOBALAMIN (VITAMIN B-12) 1,000 MCG TABLET PO SCH (08:32)
[2023-09-29] MEDS: PANTOPRAZOLE 40 MG TAB DR PO SCH (08:34)
[2023-09-29] MEDS: ISOSORBIDE MONONITRATE 20 MG TABLET PO SCH (08:37)
[2023-09-29] MEDS ORDERED: NON-FORMULARY MEDICATION 1 EACH (Omeprazole 20 MG) PO SCH (09:00)
[2023-09-29] MEDS ORDERED: INSULIN DETEMIR 22 UNIT SQ SCH (09:00)
[2023-09-29] MEDS: INSULIN GLARGINE 100 UNITS/ML 10 ML VIAL SQ SCH (09:00)
[2023-09-29] MEDS: BENZOCAINE/MENTH/CETYLPYRD CL 1 EACH LOZENGE MM SCH (14:13)
[2023-09-29] MEDS: GUAIFENESIN-CODEINE 5 ML SYRUP PO SCH (14:13)
[2023-09-29] MEDS ORDERED: PHARMACY COMMUNICATION MISC SCH (15:00)
[2023-09-29] MEDS: BENZONATATE 100 MG CAPSULE PO SCH (18:00)
[2023-09-30] VITALS (12 sets, daily range): BP systolic 124–144; BP diastolic 67–75; PULSE 78–96; RESP 16–19; O2SAT 95–96
[2023-09-30 04:47] LABS: HEMATOCRIT 29.2 % (36-48); MEAN CORPUSCULAR HEMOGLOBIN 33.8 pg (27.0-33.0); MEAN CORPUSCULAR HGB CONC 32.2 g/dL (32.0-36.0); RED BLOOD CELL COUNT(AUTO) 2.78 MIL/uL (4.00-5.50); RED CELL DISTRIBUTION WIDTH 12.7 % (11.0-15.5); WHITE BLOOD COUNT (AUTO) 10.3 K/uL (4.8-10.8)
[2023-09-30 05:02] LABS: CREATININE 1.5 mg/dL (0.5-1.5); MAGNESIUM 2.9 mg/dL (1.80-2.40); POTASSIUM 5.2 mmol/L (3.5-5.1)
[2023-09-30] MEDS: DOCUSATE SODIUM 100 MG CAP PO PRN (11:53)
[2023-09-30] MEDS ORDERED: ALBU90AE2 IH (13:34)
[2023-09-30] MEDS ORDERED: BUDE10.2 IH (13:34)
[2023-09-30] MEDS ORDERED: PRED20TA3 PO (13:34)
[2023-10-01] VITALS (13 sets, daily range): BP systolic 113–138; BP diastolic 63–76; PULSE 71–95; RESP 17–20; O2SAT 93–98
[2023-10-01] MEDS: POLYETHYLENE GLYCOL 3350 17 GM POWD.PACK PO PRN (04:24)
[2023-10-01] MEDS: KETOROLAC 30MG VIAL (30MG/ML) IVP STA (05:54)
[2023-10-01] MEDS: PREDNISONE 20 MG TABLET PO SCH (08:39)
[2023-10-01] MEDS ORDERED: LACTULOSE 20 GM/30 ML UDCUP PO PRN (10:30)
[2023-10-01] MEDS: GLYCERIN ADULT SUPP.RECT RC SCH (15:51)
[2023-10-01] MEDS: DOCUSATE SODIUM 100 MG CAP PO SCH (20:17)
[2023-10-01] MEDS: NITROGLYCERIN 0.4 MG SL TAB SL PRN (23:08)
[2023-10-02] VITALS (10 sets, daily range): BP systolic 121–143; BP diastolic 65–78; PULSE 74–101; RESP 16–20; O2SAT 96–98
[2023-10-02 04:17] LABS: HEMATOCRIT 29.8 % (36-48); MEAN CORPUSCULAR HGB CONC 33.2 g/dL (32.0-36.0); MEAN CORPUSCULAR VOLUME 102.4 fL (79-99); RED BLOOD CELL COUNT(AUTO) 2.91 MIL/uL (4.00-5.50); RED CELL DISTRIBUTION WIDTH 12.3 % (11.0-15.5); WHITE BLOOD COUNT (AUTO) 9.1 K/uL (4.8-10.8)
[2023-10-02 04:32] LABS: CREATININE 1.3 mg/dL (0.5-1.5); MAGNESIUM 2.5 mg/dL (1.80-2.40)
[2023-10-02] MEDS: DIPHENHYDRAMINE HCL 25 MG CAPSULE PO ONE (14:29)
[2023-10-03] MEDS ORDERED: ISOSORBIDE MONO 60MG SR TAB PO SCH (09:00)
[2023-10-03] MEDS ORDERED: METOPROLOL SUCCINATE 50 MG TAB.SR.24H PO SCH (09:00)
== END 2023-10-02 20:00 | disposition home or self-care (01) | DRG 280 ==
LOC: EDH 18:37 → EDHIP 21:53 → 4CH 09-28 16:59 → 4BH 09-28 18:15
PROVIDERS: ADMIT Internal Medicine Infectious Disease; ATTEND Internal Medicine Infectious Disease
DX: I11.0 Hypertensive heart disease with heart failure (principal); I50.43 Acute on chronic combined systolic (congestive) and diastolic (congestive) heart failure; I21.4 Non-ST elevation (NSTEMI) myocardial infarction; J96.01 Acute respiratory failure with hypoxia; I16.1 Hypertensive emergency; J45.901 Unspecified asthma with (acute) exacerbation; Z20.822 Contact with and (suspected) exposure to COVID-19; I25.119 Atherosclerotic heart disease of native coronary artery with unspecified angina pectoris; E11.65 Type 2 diabetes mellitus with hyperglycemia; M54.9 Dorsalgia, unspecified; H54.61 Unqualified visual loss, right eye, normal vision left eye; E66.9 Obesity, unspecified; E11.42 Type 2 diabetes mellitus with diabetic polyneuropathy; E78.00 Pure hypercholesterolemia, unspecified; N28.9 Disorder of kidney and ureter, unspecified; Z83.3 Family history of diabetes mellitus; Z90.710 Acquired absence of both cervix and uterus; Z88.0 Allergy status to penicillin; Z88.1 Allergy status to other antibiotic agents; Z68.32 Body mass index [BMI] 32.0-32.9, adult; Z79.899 Other long term (current) drug therapy
CPT/HCPCS: 36415; 71045; 71270; 74176; 80048; 80053; 81001; 82550; 82948; 83036; 83735; 83880; 84484; 85025; 85027; 85378; 87426; 87804; 93005; 93306; 93970; 94640; 94664; G0378; J0360; J0696; J1650; J1815; J1940; J2270; J2405; J2920; J2930; J3475; Q0163

== ENCOUNTER → 2024-04-15 | Outpatient (CLI) | payer MEDICAID ==
[~2024-04-15] MED LIST changes: +AMLO-257 PO; -AMLO5TAB4 PO; +ASPI-1443 PO; +ATOR-2 PO; -ATOR10 PO; +BUME1TAB7 PO; -CLOP-31 PO; +CLOP75TA32 PO; -FURO40TA7 PO; +HYDR50TA37 PO; -INSU100V12 SQ; -ISOS20TA85 PO; +Isosorbide Mono 30MG Sr Tab PO; +LOSA-420 PO; -METO25 PO; +METO50TA9 PO; -NITR0.4T50 SL; -RANO500T6 PO; -SACU1TAB PO; -SPIR25TA6 PO; +VERI2.5T PO
[2024-04-15 15:55] LABS: ALBUMIN 2.7 g/dL (3.5-5.0); BILIRUBIN,TOTAL 0.3 mg/dL (0.2-1.0); POTASSIUM 4.4 mmol/L (3.5-5.1); TOTAL PROTEIN, SERUM 6.1 g/dL (6.0-8.3)
== END | disposition home or self-care (01) ==
LOC: LAB 12:38
PROVIDERS: ATTEND Student in an Organized Health Care Education/Training Program
DX: E78.2 Mixed hyperlipidemia (principal); I77.9 Disorder of arteries and arterioles, unspecified
CPT/HCPCS: 36415; 80053; 80061

== ENCOUNTER → 2024-04-20 | Outpatient (CLI) | payer MEDICAID ==
[~2024-04-20] MED LIST changes: +IOHEXOL 350 MG/ML 100ML INFUS..BTL IV ONE; +metoPROLOL tartRATE 1 MG/ML 5ML VIAL IV ONE
== END | disposition home or self-care (01) ==
LOC: RAH 03-30 11:08
PROVIDERS: ATTEND Student in an Organized Health Care Education/Training Program
DX: I25.10 Atherosclerotic heart disease of native coronary artery without angina pectoris (principal); I25.42 Coronary artery dissection; R07.9 Chest pain, unspecified
CPT/HCPCS: 75574; J3490 ×2; Q9967

== ENCOUNTER → 2024-07-26 | Outpatient (CLI) | payer MEDICAID ==
[~2024-07-26] MED LIST changes: +ALBU18HF7 IH; +ASPI-1026 PO; +ATOR40TA71 PO; +BUME1TAB6 PO; -BUME1TAB7 PO; +CYAN-52 PO; +HYDR25 PO; -IOHEXOL 350 MG/ML 100ML INFUS..BTL IV ONE; +ISOS10TA96 PO; -Isosorbide Mono 30MG Sr Tab PO; +LEVO-70 PO; -LOSA-420 PO; -METF-444 PO; +MUPI22OI2 TP; +NITR0.4T50 SL; +SEMA2PEN SQ; -VERI2.5T PO; -metoPROLOL tartRATE 1 MG/ML 5ML VIAL IV ONE
[2024-07-26 12:19] LABS: BASOPHILS # (AUTO) 0.03 K/uL (0.00-0.20); BASOPHILS % (AUTO) 0.4 % (0.0-5.0); EOSINOPHILS # (AUTO) 0.43 K/uL (0.00-0.70); EOSINOPHILS % (AUTO) 6.4 % (0.0-8.0); HEMATOCRIT 27.8 % (36-48); IMMATURE GRANULOCYTE ABSOLUTE 0.05 K/uL (0-1); LYMPHOCYTES # (AUTO) 1.3 K/uL (1.0-4.8); LYMPHOCYTES % (AUTO) 19.1 % (21.0-51.0); MEAN CORPUSCULAR HGB CONC 31.3 g/dL (32.0-36.0); MEAN CORPUSCULAR VOLUME 105.3 fL (79-99); MONOCYTES # (AUTO) 0.5 K/uL (0.1-1.0); MONOCYTES % (AUTO) 7.4 % (3.0-13.0); NEUTROPHILS # (AUTO) 4.5 K/uL (1.8-7.7); PLATELET COUNT (AUTO) 211 K/uL (130-400); RED BLOOD CELL COUNT(AUTO) 2.64 MIL/uL (4.00-5.50); WHITE BLOOD COUNT (AUTO) 6.8 K/uL (4.8-10.8)
[2024-07-26 12:39] LABS: ALBUMIN 2.3 g/dL (3.5-5.0); BILIRUBIN,TOTAL 0.2 mg/dL (0.2-1.0); CREATININE 1.2 mg/dL (0.5-1.0); POTASSIUM 4.4 mmol/L (3.5-5.1); TOTAL PROTEIN, SERUM 5.4 g/dL (6.0-8.3)
== END | disposition home or self-care (01) ==
LOC: LAB 09:59
PROVIDERS: ATTEND Student in an Organized Health Care Education/Training Program
DX: R60.9 Edema, unspecified (principal); R53.83 Other fatigue
CPT/HCPCS: 36415; 80053; 85025

== ENCOUNTER 2024-09-20 12:31 | Emergency (ER) | payer SELFPAY ==
[~2024-09-20] VITALS: Ht 175.3 cm; Wt 104.3 kg
[~2024-09-20 12:31] MED LIST changes: -AMLO-257 PO; +AMLO5TAB4 PO; +FERR1TAB54 PO; +HYDR100T15 PO; -HYDR25 PO; -LEVO-70 PO; +LEVO250T75 PO
--- NOTE | 2024-09-20 13:04 | EKG ---
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
[2024-09-20 13:27] LABS: BASOPHILS # (AUTO) 0.02 K/uL (0.00-0.20); BASOPHILS % (AUTO) 0.3 % (0.0-5.0); EOSINOPHILS % (AUTO) 4.1 % (0.0-8.0); HEMATOCRIT 27.9 % (36-48); IMMATURE GRANULOCYTE ABSOLUTE 0.04 K/uL (0-1); LYMPHOCYTES # (AUTO) 1.1 K/uL (1.0-4.8); LYMPHOCYTES % (AUTO) 14.3 % (21.0-51.0); MEAN CORPUSCULAR HEMOGLOBIN 33.6 pg (27.0-33.0); MEAN CORPUSCULAR HGB CONC 30.8 g/dL (32.0-36.0); MONOCYTES # (AUTO) 0.5 K/uL (0.1-1.0); MONOCYTES % (AUTO) 6.7 % (3.0-13.0); NEUTROPHILS # (AUTO) 5.4 K/uL (1.8-7.7); NEUTROPHILS % (AUTO) 74.1 % (40.0-77.0); PLATELET COUNT (AUTO) 213 K/uL (130-400); RED BLOOD CELL COUNT(AUTO) 2.56 MIL/uL (4.00-5.50); RED CELL DISTRIBUTION WIDTH 13.9 % (11.0-15.5); WHITE BLOOD COUNT (AUTO) 7.3 K/uL (4.8-10.8)
[2024-09-20 13:38] LABS: CREATININE 1.7 mg/dL (0.5-1.0); POTASSIUM 4.9 mmol/L (3.5-5.1)
[2024-09-20 13:42] LABS: PROTHROMBIN TIME 10.6 SEC (9.6-11.6)
[2024-09-20 13:43] LABS: MAGNESIUM 2.4 mg/dL (1.80-2.40); PARTIAL THROMBOPLASTIN TIME 30.3 SEC (26.3-35.5)
--- NOTE | 2024-09-20 13:47 | ERN ---
General Chief Complaint: Lower Extremity Pain/Injury Stated Complaint: MULT COMPLAINTS Time Seen by MD: 12:37 Source: patient History of Present Illness Initial Comments Patient is a 59-year-old female coming in to be evaluated for multiple complaints. Patient states that she has been having swollen lower extremities and shortness of breath. She states that when she lays down the shortness of breath becomes worse. No fever or chills. Allergies: Coded Allergies: Penicillins (Unverified Allergy, Severe, hives, 01/19/14) ceftriaxone (Unverified Allergy, Severe, hives, 01/19/14) Home Meds Active Scripts Levofloxacin (Levofloxacin) 250 Mg Tablet, 1 TAB PO DAILY for 7 Days, #7 TAB 0 Refills Prov:JONA CAIN 08/09/24 Amlodipine Besylate (Norvasc 5Mg Tab) 5 Mg Tablet, 10 MG PO DAILY, #30 TAB 1 Refill Prov:JONA CAIN 08/09/24 Clopidogrel Bisulfate (Clopidogrel) 75 Mg Tablet, 75 MG PO AM for 90 Days, #90 TAB Prov:GARRY TRUJILLO MD 08/05/24 Mupirocin (Mupirocin Ointment) 2 % Oint, 1 APPL TP TID, #2 APPL 0 Refills Prov:IRMA RIOS COMPLIANCE MGR 06/29/24 Cyanocobalamin (Vitamin B-12) (Vitamin B-12) 1,000 Mcg Tablet, 1000 MCG PO DAILY, #60 TAB Prov:IRMA RIOS COMPLIANCE MGR 06/29/24 Bumetanide (Bumetanide) 1 Mg Tablet, 1 MG PO DAILY, #60 TAB Prov:IRMA RIOS COMPLIANCE MGR 06/29/24 Metoprolol Succinate (Toprol Xl) 50 Mg Tab.er.24h, 50 MG PO DAILY for 30 Days, #30 TAB Prov:BRAYAN POZO NP 04/02/24 Reported Medications Ferrous Fumarate/Folic Acid (Hemocyte-F Tablet) 324 Mg (106 Mg Iron)-1 Mg Tablet, 1 TAB PO DAILY for 30 Days, #30 TAB 0 Refills 08/02/24 Hydralazine HCl (Hydralazine HCl) 100 Mg Tablet, 1 TAB PO TID for 30 Days, #90 TAB 0 Refills 08/02/24 Aspirin (Aspirin) 325 Mg Tablet, 1 TAB PO DAILY 06/21/24 Atorvastatin Calcium (Atorvastatin Calcium) 40 Mg Tablet, 1 TAB PO DAILY 06/21/24 Nitroglycerin (Nitroglycerin) 0.4 Mg Tab.subl, 1 TAB SL AD PRN for CHEST PAIN, #25 TAB 0 Refills 1st sign of attack; may repeat every 5 mins; if pain persists after 3 in 15 min, medical attention is recommended 06/14/24 Isosorbide Mononitrate (Isosorbide Mononitrate) 10 Mg Tablet, 1 TAB PO BID for 30 Days, #60 TAB 0 Refills 06/10/24 Semaglutide (Ozempic) 2 Mg/0.75 Ml (8 Mg/3 Ml) Pen.injctr, 2 MG SQ QWEEK for 30 Days, #3 ML 0 Refills 06/10/24 Albuterol Sulfate (Ventolin Hfa) 90 Mcg Hfa.aer.ad, 2 PUFF IH Q4HPRN PRN for wheezing for 30 Days, #18 GM 0 Refills 06/10/24 Clonidine HCl (Clonidine HCl) 0.1 Mg Tablet, 0.1 MG PO AM, TAB 03/30/24 Gabapentin (Gabapentin) 100 Mg Capsule, 300 MG PO TID, CAP 03/30/24 Hydralazine HCl (Hydralazine HCl) 50 Mg Tablet, 50 MG PO TID, TAB 03/30/24 Aspirin (Aspirin EC) 81 Mg Tablet.dr, 81 MG PO DAILY, TAB 02/16/24 Clopidogrel Bisulfate (Clopidogrel) 75 Mg Tablet, 75 MG PO DAILY, TAB 02/16/24 Omeprazole (Omeprazole) 20 Mg Capsule.dr, 20 MG PO DAILY, CAP 02/16/24 Atorvastatin Calcium (Atorvastatin Calcium) 80 Mg Tablet, 40 MG PO DAILY, TAB 02/16/24 Past Medical History Past Medical History: CHF, Diabetes-Type II, High Cholesterol, Heart Disease, Hypertension Medical History Other: NEUROPATHY Past Surgical History: Unknown Surgical History Other: CARDIAC STENTS, RIGHT ENDARDECTOMY Social History Social History: Negative, Lives with family Female( History) History: Not Applicable ROS Dictation CONSTITUTIONAL: No chills, no fever, no weakness, no diaphoresis, no malaise. HEAD/FACE: No signs of trauma. EENT: No eye pain, no blurred vision, no tearing, no double vision, no ear pain, no ear discharge, no nose pain, no nasal congestion, no throat pain, no throat swelling, no mouth pain. RESPIRATORY: No cough, no orthopnea, SOB, no stridor, no wheezing. CARDIOVASCULAR: No chest pain, no edema, no palpitations, no syncope. GASTROINTESTINAL/ABDOMINAL: No abdominal pain, no constipation, no diarrhea, no nausea, no vomiting. GENITOURINARY: No abnormal discharge, no dysuria, no frequent urination, no hematuria. No complaints of pain in the genitals. MUSCULOSKELETAL: No back pain, no gout, no joint pain, no joint swelling, no muscle pain, no muscle stiffness, no neck pain. INTEGUMENTARY: No change in color, no change in hair/nails, no dryness, no lesion, no lumps, no rash. NEUROLOGICAL/PSYCH: No anxiety, not depressed, no emotional problem, no headache, no numbness, no pre-existing deficit, no history of seizures, no tremors, no weakness. HEMATOLOGIC/LYMPHATIC: Not anemic, no history of blood clots, no apparent bleeding, no bruising, glands not swollen. All Systems Negative, Except as Noted. Physical Exam Physical Exam Dictation VITAL SIGNS: Reviewed. GENERAL APPEARANCE: Alert, oriented x3, no acute distress, obese. HEAD AND FACE: Non-traumatic. EYES: PERRL, pink conjunctivas, eyelid no trauma, anterior chamber clear. EARS: Pinnas intact and no signs of trauma or erythema. Ear canals clear and no discharge. TMs no erythema. NOSE: No discharge, no bleeding. OROPHARYNX: Mouth normal, teeth no caries, tongue pink. Pharynx clear, no erythema. Tonsils no exudates, no abscesses noted. Mucous membrane moist. NECK: Supple, non-tender, no thyromegaly, no masses, no JVD, no bruits. BREAST: Deferred. CHEST: No tenderness, no crepitus, no paradoxical movement, no retractions. LUNGS: Clear, well-ventilated, symmetric, no rales, no wheezing, no rhonchi, no stridor, good breath sounds bilaterally. HEART: Regular rate, regular rhythm, no murmur, no gallops. VASCULAR: No peripheral edema. ABDOMEN: Soft, positive bowel sounds, nondistended, no guarding, nontender, no rebound, no masses no hepatomegaly, no splenomegaly, no Ferraro's sign, no hernias. RECTAL: Deferred. GENITAL: Deferred. NEUROLOGICAL: Normal speech, gross motor function intact, gross sensory function intact. MUSCULOSKELETAL: Neck nontender, full range of motion, back nontender, full range of motion. EXTREMITIES: Nontender, full range of motion. SKIN: Color pink, dry, no turgor, no rash, no lacerations, no abrasions, no contusions. LYMPHATICS: Deferred. Results Laboratory and Microbiology Lab and Micro Result Laboratory Tests Test 09/20/24 13:14 White Blood Count 7.3 K/uL (4.8-10.8) Red Blood Count 2.56 MIL/uL (4.00-5.50) L Hemoglobin 8.6 g/dL (12.0-16.0) L Hematocrit 27.9 % (36-48) L Mean Corpuscular Volume 109.0 fL (79-99) H Mean Corpuscular Hemoglobin 33.6 pg (27.0-33.0) H Mean Corpuscular Hemoglobin Concent 30.8 g/dL (32.0-36.0) L Red Cell Distribution Width 13.9 % (11.0-15.5) Platelet Count 213 K/uL (130-400) Mean Platelet Volume 9.5 fL (7.5-10.5) Immature Granulocyte % (Auto) 0.5 % (0-1) Neutrophils (%) (Auto) 74.1 % (40.0-77.0) Lymphocytes (%) (Auto) 14.3 % (21.0-51.0) L Monocytes (%) (Auto) 6.7 % (3.0-13.0) Eosinophils (%) (Auto) 4.1 % (0.0-8.0) Basophils (%) (Auto) 0.3 % (0.0-5.0) Neutrophils # (Auto) 5.4 K/uL (1.8-7.7) Lymphocytes # (Auto) 1.1 K/uL (1.0-4.8) Monocytes # (Auto) 0.5 K/uL (0.1-1.0) Eosinophils # (Auto) 0.30 K/uL (0.00-0.70) Basophils # (Auto) 0.02 K/uL (0.00-0.20) Absolute Immature Granulocyte (auto 0.04 K/uL (0-1) Nucleated Red Blood Cells 0.0 % (0.0-0.19) Red Blood Cell Morphology See comments Prothrombin Time 10.6 SEC (9.6-11.6) Prothromb Time International Ratio 1.00 (0.85-1.15) Activated Partial Thromboplast Time 30.3 SEC (26.3-35.5) Sodium Level 140 mmol/L (136-145) Potassium Level 4.9 mmol/L (3.5-5.1) Chloride Level 107 mmol/L (101-111) Carbon Dioxide Level 31 mmol/L (21-32) Blood Urea Nitrogen 38 mg/dL (7-18) H Creatinine 1.7 mg/dL (0.5-1.0) H Glomerular Filtration Rate Calc 34 mL/min (>90) Random Glucose 181 mg/dL (70-105) H Total Calcium 8.1 mg/dL (8.5-10.1) L Magnesium Level 2.40 mg/dL (1.80-2.40) Total Creatine Kinase 204 U/L (21-232) Troponin I High Sensitivity 46 ng/L (4-50) B-Type Natriuretic Peptide 310 pg/mL (0-100) H Labs Reviewed?: Yes EKG/XRAY/US/CT/MRI EKG Comment 09/20/2024 time 12:57 p.m. Ventricular rate 62 Sinus [place] [address] wave elevation [place] [address] IMAGING REPORT Signed PATIENT: LEXX BROWER MR#: [id number] : 1965 SEX: F AGE: 59 LOCATION: [facility] ORDER 1253 STATUS: REG ER REPORT#: [id number] SERVICE 1251 REASON: sob ORDERING PHYSICIAN: LIYAH BILL MD PROCEDURE: CXR1VW - CHEST 1VW PORTABLE CHEST RADIOGRAPH INDICATION: sob COMPARISON: 08/02/2024 FINDINGS: surveillance monitor leads overlie the field of view. Heart remains slightly enlarged. The pulmonary vascularity and ena appear normal. No abnormal pulmonary parenchymal opacity or consolidation identified. No significant pleural effusion noted. No pneumothorax detected. IMPRESSION: Mild cardiac enlargement without radiographic evidence for any acute cardiopulmonary process. DICTATED BY: JACINTA GAN MD DATE: 09/20/24 1353 ELECTRONICALLY SIGNED BY: JACINTA GAN MD DATE: 09/20/24 1350 MDM MDM: Differential diagnosis: Chronic pedal edema, chronic renal failure, history of CHF Patient is a 59-year-old female coming in to be evaluated for lower extremity pedal edema. 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 She came in for further evaluation but I advised her on the current findings no change from the previous visits. I did advise her close follow up with PCP and/or freight car loader in 1-2 days for ongoing evaluation and management. Throughout ER visit patient has been stable no chest pain. ED Course Orders Procedure Category Date Status Time Cbc With Differential LAB 09/20/24 Complete 12:51 Prothrombin Time With LAB 09/20/24 Complete INR 12:51 B-Type Natriuretic LAB 09/20/24 Complete Peptide 12:51 Chest 1vw RAD 09/20/24 Resulted 12:51 12 Lead Ekg Tracing- EKG 09/20/24 Complete Technical 12:51 Magnesium LAB 09/20/24 Complete 12:51 Creatine Kinase, Total LAB 09/20/24 Complete 12:51 Troponin I High LAB 09/20/24 Complete Sensitivity 12:51 Urinalysis Profile LAB 09/20/24 Logged 12:51 Partial LAB 09/20/24 Complete Thromboplastin Time 12:51 Basic Metabolic Panel LAB 09/20/24 Complete 12:51 Vital Signs Date Time Temp Pulse Resp B/P (MAP) Pulse Ox O2 Delivery O2 Flow Rate FiO2 09/20/24 16:00 98.2 68 20 164/69 94 Room Air* 0 09/20/24 14:00 71 18 155/68 94 Room Air* 0 09/20/24 13:27 87 18 152/90 95 Room Air* 0 09/20/24 12:40 98.2 68 16 152/81 96 Room Air DX & DISP Disposition: Discharge Departure Impression: Primary Impression: Pedal edema Additional Impression: Chronic renal failure Condition: Stable Additional Instructions: You have been reviewed in the emergency department at [facility] after presenting with chest pain. After considering your history, your risk factors, your EKG and your blood test troponins, have been found to be at very low risk less than (1 in 100) of having a major adverse cardiac event (like heart attack) in the near future. In the " low risk" group, the risks of doing further tests and treatment as the inpatient outweighs the benefits. In many patients in the low risk group for the test of any sort or unnecessary, however he should discuss this further with his general practitioner who will understand the medical and personal backgrounds better. Because we have never declared you" no risk" we would suggest. 1 returning for medical review if you have further episodes of chest pain/arm pain or other concerning symptoms like dizziness, collapse, palpitations or shortness of breath. 2. Following up with your local doctor who will consider the need for further testing and will also ensure that any modifiable risk factors you may have for heart disease are optimally managed. Patient will be discharged in stable condition at the moment discharge patient states , no chest pain Referrals: TROY BERG MD (PCP) Time of Disposition: 16:11 LIYAH BILL MD Sep 20, 2024 13:47
[2024-09-20 13:51] LABS: B-TYPE NATRIURETIC PEPTIDE 310 pg/mL (0-100)
--- NOTE | 2024-09-20 13:57 | HMCIMG ---
PORTABLE CHEST RADIOGRAPH INDICATION: sob COMPARISON: 08/02/2024 FINDINGS: security monitor leads overlie the field of view. Heart remains slightly enlarged. The pulmonary vascularity and ena appear normal. No abnormal pulmonary parenchymal opacity or consolidation identified. No significant pleural effusion noted. No pneumothorax detected. IMPRESSION: Mild cardiac enlargement without radiographic evidence for any acute cardiopulmonary process.
[2024-09-20 16:00] VITALS: BP 164/69; PULSE 68; RESP 20; TEMP 98.2; O2SAT 94
[2024-09-20 16:15] LABS: APPEARANCE,URINE CLEAR (CLEAR); BILIRUBIN,URINE NEGATIVE (NEGATIVE); COLOR,URINE LIGHT-YELLOW (YELLOW); GLUCOSE, URINE (UA) 200 mg/dL (NEGATIVE); KETONES,URINE NEGATIVE (NEGATIVE); LEUKOCYTE ESTERASE ,URINE NEGATIVE Leu/uL (NEGATIVE); NITRATE,URINE NEGATIVE (NEGATIVE); OCCULT BLOOD,URINE NEGATIVE (NEGATIVE); PROTEIN,URINE 300 mg/dL (NEGATIVE); UROBILINOGEN,URINE 0.2 mg/dL (0.2-1.0)
[2024-09-20 16:25] LABS: ADD UA MICROSCOPIC YES
[2024-09-20 16:28] LABS: BACTERIA,URINE RARE /HPF (None Seen); MUCUS,URINE RARE LPF (None Seen); SQUAMOUS EPITHELIAL CELL,UR FEW /HPF (0-2)
== END 2024-09-20 16:20 | disposition home or self-care (01) ==
LOC: EDH 12:31
DX: I13.0 Hypertensive heart and chronic kidney disease with heart failure and stage 1 through stage 4 chronic kidney disease, or unspecified chronic kidney disease (principal); E11.22 Type 2 diabetes mellitus with diabetic chronic kidney disease; I50.9 Heart failure, unspecified; N18.9 Chronic kidney disease, unspecified; R60.9 Edema, unspecified; E78.00 Pure hypercholesterolemia, unspecified; Z79.02 Long term (current) use of antithrombotics/antiplatelets; Z79.82 Long term (current) use of aspirin; Z79.85 Long-term (current) use of injectable non-insulin antidiabetic drugs; Z79.899 Other long term (current) drug therapy; Z88.0 Allergy status to penicillin; Z88.1 Allergy status to other antibiotic agents; Z95.5 Presence of coronary angioplasty implant and graft
CPT/HCPCS: 36415; 71045; 80048; 81001; 82550; 83735; 83880; 84484; 85025; 85610; 85730; 93005; 99285

== ENCOUNTER 2024-09-23 01:42 | Inpatient (IN) | payer SELFPAY ==
[~2024-09-23] VITALS: Ht 162.6 cm; Wt 108.9 kg
[2024-09-23 02:15] LABS: BASOPHILS # (AUTO) 0.04 K/uL (0.00-0.20); BASOPHILS % (AUTO) 0.4 % (0.0-5.0); EOSINOPHILS # (AUTO) 0.32 K/uL (0.00-0.70); EOSINOPHILS % (AUTO) 3.3 % (0.0-8.0); HEMATOCRIT 27.9 % (36-48); IMMATURE GRANULOCYTE ABSOLUTE 0.05 K/uL (0-1); LYMPHOCYTES # (AUTO) 1.3 K/uL (1.0-4.8); LYMPHOCYTES % (AUTO) 13.2 % (21.0-51.0); MEAN CORPUSCULAR HEMOGLOBIN 33.7 pg (27.0-33.0); MEAN CORPUSCULAR HGB CONC 31.9 g/dL (32.0-36.0); MEAN CORPUSCULAR VOLUME 105.7 fL (79-99); MONOCYTES # (AUTO) 0.7 K/uL (0.1-1.0); MONOCYTES % (AUTO) 6.9 % (3.0-13.0); NEUTROPHILS # (AUTO) 7.5 K/uL (1.8-7.7); NEUTROPHILS % (AUTO) 75.7 % (40.0-77.0); PLATELET COUNT (AUTO) 234 K/uL (130-400); RED BLOOD CELL COUNT(AUTO) 2.64 MIL/uL (4.00-5.50); RED CELL DISTRIBUTION WIDTH 13.6 % (11.0-15.5); WHITE BLOOD COUNT (AUTO) 9.8 K/uL (4.8-10.8)
[2024-09-23 02:21] LABS: CREATININE 1.2 mg/dL (0.5-1.0); POTASSIUM 4.2 mmol/L (3.5-5.1)
--- NOTE | 2024-09-23 02:38 | ERN ---
ED Note History of Present Illness Stated Complaint: HYPERTENSIVE Chief Complaint: Hypertension Time Seen by MD: 01:56 Dictation: This is a 59-year-old female obese who presented to the emergency room stating that her blood pressure has been running high she also has bilateral lower extremity pain and upper extremity pain. The right arm pain started on 09/19 left arm pain started on 09/22. She supposed to be on metoprolol amlodipine and various other medications. Patient has had these pains for a very long time and was given Tylenol No. 3 however she stated that since codeine causes constipation she only takes regular Tylenol. She also reported increasing shortness of breath and severe weight gain with the edema. Normally she is around 192 lb but weighs around 230s now She also reports PND and orthopnea Temperature 96.9 pulse 92 respirations 24 blood pressure 222/126 pulse oximetry 98% on room air Her chronic medical problems include diabetes mellitus, hypertension, history of congestive heart failure, hypercholesterolemia, history of TIA, bilateral carotid stenosis status post right carotid endarterectomy and left carotid artery stenting May-Thurner's Syndrome, s/p stenting of common and external iliac vein on 08/05/2024 , chronic anemia, CAD status post PCI to left circumflex on 06/14/2024, CAD with prior PCI to LAD Obesity, CKD Stage III, Allergies: Coded Allergies: Penicillins (Unverified Allergy, Severe, hives, 01/19/14) ceftriaxone (Unverified Allergy, Severe, hives, 01/19/14) Home Meds Active Scripts Levofloxacin (Levofloxacin) 250 Mg Tablet, 1 TAB PO DAILY for 7 Days, #7 TAB 0 Refills Prov:JONA CAIN 08/09/24 Amlodipine Besylate (Norvasc 5Mg Tab) 5 Mg Tablet, 10 MG PO DAILY, #30 TAB 1 Refill Prov:JONA CAIN 08/09/24 Clopidogrel Bisulfate (Clopidogrel) 75 Mg Tablet, 75 MG PO AM for 90 Days, #90 TAB Prov:GARRY TRUJILLO MD 08/05/24 Mupirocin (Mupirocin Ointment) 2 % Oint, 1 APPL TP TID, #2 APPL 0 Refills Prov:IRMA RIOS APRN 06/29/24 Cyanocobalamin (Vitamin B-12) (Vitamin B-12) 1,000 Mcg Tablet, 1000 MCG PO DAILY, #60 TAB Prov:IRMA RIOS [employer] LO[employer]DER 06/29/24 Bumetanide (Bumetanide) 1 Mg Tablet, 1 MG PO DAILY, #60 TAB Prov:IRMA RIOS [employer] LO[employer]DER 06/29/24 Metoprolol Succinate (Toprol Xl) 50 Mg Tab.er.24h, 50 MG PO DAILY for 30 Days, #30 TAB Prov:BRAYAN POZO [employer] 04/02/24 Reported Medications Ferrous Fumarate/Folic Acid (Hemocyte-F Tablet) 324 Mg (106 Mg Iron)-1 Mg Tablet, 1 TAB PO DAILY for 30 Days, #30 TAB 0 Refills 08/02/24 Hydralazine HCl (Hydralazine HCl) 100 Mg Tablet, 1 TAB PO TID for 30 Days, #90 TAB 0 Refills 08/02/24 Aspirin (Aspirin) 325 Mg Tablet, 1 TAB PO DAILY 06/21/24 Atorvastatin Calcium (Atorvastatin Calcium) 40 Mg Tablet, 1 TAB PO DAILY 06/21/24 Nitroglycerin (Nitroglycerin) 0.4 Mg Tab.subl, 1 TAB SL AD PRN for CHEST PAIN, #25 TAB 0 Refills 1st sign of attack; may repeat every 5 mins; if pain persists after 3 in 15 min, medical attention is recommended 06/14/24 Isosorbide Mononitrate (Isosorbide Mononitrate) 10 Mg Tablet, 1 TAB PO BID for 30 Days, #60 TAB 0 Refills 06/10/24 Semaglutide (Ozempic) 2 Mg/0.75 Ml (8 Mg/3 Ml) Pen.injctr, 2 MG SQ QWEEK for 30 Days, #3 ML 0 Refills 06/10/24 Albuterol Sulfate (Ventolin Hfa) 90 Mcg Hfa.aer.ad, 2 PUFF IH Q4HPRN PRN for wheezing for 30 Days, #18 GM 0 Refills 06/10/24 Clonidine HCl (Clonidine HCl) 0.1 Mg Tablet, 0.1 MG PO AM, TAB 03/30/24 Gabapentin (Gabapentin) 100 Mg Capsule, 300 MG PO TID, CAP 03/30/24 Hydralazine HCl (Hydralazine HCl) 50 Mg Tablet, 50 MG PO TID, TAB 03/30/24 Aspirin (Aspirin EC) 81 Mg Tablet.dr, 81 MG PO DAILY, TAB 02/16/24 Clopidogrel Bisulfate (Clopidogrel) 75 Mg Tablet, 75 MG PO DAILY, TAB 02/16/24 Omeprazole (Omeprazole) 20 Mg Capsule.dr, 20 MG PO DAILY, CAP 02/16/24 Atorvastatin Calcium (Atorvastatin Calcium) 80 Mg Tablet, 40 MG PO DAILY, TAB 02/16/24 Past Medical History Past Medical History: CAD, CHF, Diabetes-Type II, High Cholesterol, Heart Disease, Hypertension, Renal Disese, Other Additional Past Medical Hx: NEUROPATHY,MRSA May-Thurner syndrome Surgical History: Unknown Surgical History Other: CARDIAC STENTS, RIGHT ENDARDECTOMY stents in the left lower extremity Social History: Negative, Lives with family History: Not Applicable RN Note Reviewed/Agreed w/PFSH: Yes Review of System Dictation Constitutional: Negative for fever,chills, and weight loss Eyes: Negative for injury, pain,redness, and discharge ENT: Negative for injury,pain or swelling Cardiovascular: Negative for chest pain, palpitations, and positive for edema Respiratory: Negative for shortness of breath, cough, and wheezing, Abdomen/GI: Negative for abdominal pain, nausea, vomiting, diarrhea, and constipation Back: Negative for injury and pain : Negative for injury, bleeding and discharge MS/Extremity: Negative for injury and deformity bilateral lower extremity pain, bilateral upper extremity pain Skin: Negative for rash, and discoloration Neuro: Negative for headache, weakness, numbness, tingling, and seizure Psych: Negative for suicide ideation, homicidal ideation, and hallucinations Complains of pain in the arms and legs Initial Vital Sign VS Vital Signs Date Time Temp Pulse Resp B/P (MAP) Pulse Ox O2 Delivery O2 Flow Rate FiO2 09/23/24 01:44 97.0 92 24 222/126 95 Room Air 09/23/24 02:01 0 21 Physical Exam Dictation General: awake, alert, NAD uncomfortable from pain, obese Head/Face: Normocephalic, atraumatic Eyes: PERRL, EOMI, vision at baseline ENT: oral cavity clear, TMs clear, no signs of infection Neck: Trachea midline, supple, no nuchal rigidity Cardiovascular: RRR, normal S1/S2, No MRGs, no JVD Respiratory: CTAB, no respiratory distress, No rales or wheezes Abdomen: Soft, non-tender, non-distended, normal bowel sounds, no guarding or rebound. Skin: Warm, dry, normal turgor, no rash MS/Extremity: Pulses equal, no cyanosis, neurovascular intact, FROM Neuro: COAx4, GCS 15, strength 5/5, CN 2-12 intact, normal cerebellar exam, normal gait, Psych: Normal behavior, mood, and affect normal Extremities-trace edema without any palpable cords, Homans sign is negative Results (Laboratory/Radiology) Laboratory/Radiology Laboratory Tests Test 09/23/24 02:02 09/23/24 02:32 White Blood Count 9.8 K/uL (4.8-10.8) Red Blood Count 2.64 MIL/uL (4.00-5.50) L Hemoglobin 8.9 g/dL (12.0-16.0) L Hematocrit 27.9 % (36-48) L Mean Corpuscular Volume 105.7 fL (79-99) H Mean Corpuscular Hemoglobin 33.7 pg (27.0-33.0) H Mean Corpuscular Hemoglobin Concent 31.9 g/dL (32.0-36.0) L Red Cell Distribution Width 13.6 % (11.0-15.5) Platelet Count 234 K/uL (130-400) Mean Platelet Volume 9.5 fL (7.5-10.5) Immature Granulocyte % (Auto) 0.5 % (0-1) Neutrophils (%) (Auto) 75.7 % (40.0-77.0) Lymphocytes (%) (Auto) 13.2 % (21.0-51.0) L Monocytes (%) (Auto) 6.9 % (3.0-13.0) Eosinophils (%) (Auto) 3.3 % (0.0-8.0) Basophils (%) (Auto) 0.4 % (0.0-5.0) Neutrophils # (Auto) 7.5 K/uL (1.8-7.7) Lymphocytes # (Auto) 1.3 K/uL (1.0-4.8) Monocytes # (Auto) 0.7 K/uL (0.1-1.0) Eosinophils # (Auto) 0.32 K/uL (0.00-0.70) Basophils # (Auto) 0.04 K/uL (0.00-0.20) Absolute Immature Granulocyte (auto 0.05 K/uL (0-1) Nucleated Red Blood Cells 0.0 % (0.0-0.19) Sodium Level 140 mmol/L (136-145) Potassium Level 4.2 mmol/L (3.5-5.1) Chloride Level 106 mmol/L (101-111) Carbon Dioxide Level 27 mmol/L (21-32) Blood Urea Nitrogen 35 mg/dL (7-18) H Creatinine 1.2 mg/dL (0.5-1.0) H Glomerular Filtration Rate Calc 52 mL/min (>90) Random Glucose 162 mg/dL (70-105) H Total Calcium 8.2 mg/dL (8.5-10.1) L Total Creatine Kinase 318 U/L (21-232) #H Troponin I High Sensitivity 52 ng/L (4-50) *H B-Type Natriuretic Peptide 521 pg/mL (0-100) H Troponin I < 0.05 ng/mL (0.00-0.05) Labs Reviewed?: Yes EKG Comment: Twelve lead EKG done on 09/23/2024 at 1:58 a.m. showed a heart rate of 89, SD interval 179, QRS 101, QT/QTC 411/501 Impression normal sinus rhythm with nonspecific ST-T changes but no acute ST elevations noted. Interpreted by ER MD Dr. Wilson X-RAY Comment: PATIENT: LEXX BROWER MR#: [id number] : 1965 SEX: F AGE: 59 LOCATION: [facility] ORDER 1253 STATUS: REG ER REPORT#: [id number] SERVICE 1251 REASON: sob ORDERING PHYSICIAN: LIYAH BILL MD PROCEDURE: CXR1VW - CHEST 1VW PORTABLE CHEST RADIOGRAPH INDICATION: sob COMPARISON: 08/02/2024 FINDINGS: hall monitor leads overlie the field of view. Heart remains slightly enlarged. The pulmonary vascularity and ena appear normal. No abnormal pulmonary parenchymal opacity or consolidation identified. No significant pleural effusion noted. No pneumothorax detected. IMPRESSION: Mild cardiac enlargement without radiographic evidence for any acute cardiopulmonary process. DICTATED BY: JACINTA GAN MD DATE: 09/20/24 1353 ELECTRONICALLY SIGNED BY: JACINTA GAN MD DATE: 09/20/24 1357 ED Course ED Course Orders Procedure Category Date Status Time Vital Signs Per CPOE 09/23/24 Transmitted Routine 01:45 B-Type Natriuretic LAB 09/23/24 Complete Peptide 01:45 Chest 1vw RAD 09/23/24 Taken 01:45 12 Lead Ekg Tracing- EKG 09/23/24 Logged Technical 01:45 Oxygen By Nc/Pulse Ox CPOE 09/23/24 Transmitted 01:45 Maintain Iv CPOE 09/23/24 Transmitted 01:45 Iv Insertion CPOE 09/23/24 Transmitted 01:45 Cardiac Monitoring CPOE 09/23/24 Transmitted 01:45 Pulse Oximetry With CPOE 09/23/24 Transmitted Vs And Prn 01:45 Cbc With Differential LAB 09/23/24 Complete 01:45 Activity: Br W/Brp CPOE 09/23/24 Transmitted With Assist 01:45 Creatine Kinase, Total LAB 09/23/24 Complete 01:45 Troponin I High LAB 09/23/24 Complete Sensitivity 01:45 Urinalysis Profile LAB 09/23/24 In Process 01:45 Troponin Poc Order LAB 09/23/24 Complete Only 01:45 Bedside Troponin-I LAB.ER 09/23/24 In Process (Poc) 01:45 Basic Metabolic Panel LAB 09/23/24 Complete 01:45 Hydralazine 20mg Inj PHA 09/23/24 Complete (Apresoline 20mg In 03:00 Nitroglycerin 1gm PHA 09/23/24 Complete Oint (Nitroglycerin 1g 03:00 Ondansetron 4mg Inj PHA 09/23/24 Complete (Zofran 4mg Inj) 03:00 Acetaminophen 325 Tab PHA 09/23/24 Complete (Tylenol 325mg Tab 03:00 Morphine 4mg Syg PHA 09/23/24 Complete (Morphine 4mg Syg) 03:30 Admit Orders ADM 09/23/24 Transmitted 04:04 Consistent Carb DIET 09/24/24 Transmitted Breakfast Basic Metabolic Panel LAB 09/24/24 Verified 04:00 Cbc With Differential LAB 09/24/24 Verified 04:00 Magnesium LAB 09/24/24 Verified 04:00 Phosphorus LAB 09/24/24 Verified 04:00 Urinalysis Profile LAB 09/23/24 Logged 04:04 Activity: Ad Vika CPOE 09/23/24 Transmitted 04:04 Apply Knee High Teds CPOE 09/23/24 Transmitted 04:04 Apply Scds CPOE 09/23/24 Transmitted 04:04 Condition: CPOE 09/23/24 Transmitted 04:04 Daily Fluid Intake CPOE 09/23/24 Transmitted Restriction 04:04 Daily Weights CPOE 09/23/24 Transmitted 04:04 I&O Q Shift CPOE 09/23/24 Transmitted 04:04 Nurse To Enter Home CPOE 09/23/24 Transmitted Medication 04:04 Oxygen By Nc/Pulse Ox CPOE 09/23/24 Transmitted 04:04 Telemetry Monitoring CPOE 09/23/24 Transmitted 04:04 Vital Signs(Adult CPOE 09/23/24 Transmitted Hospitalist) 04:04 Heparin 5,000 Unit PHA 09/23/24 Logged Vial (Heparin 5,000 U 09:00 Hydralazine 20mg Inj PHA 09/23/24 In Process (Apresoline 20mg In 04:30 Morphine 4mg Syg PHA 09/23/24 Logged (Morphine 4mg Syg) 04:30 Ondansetron 4mg Inj PHA 09/23/24 In Process (Zofran 4mg Inj) 04:30 Pantoprazole 40mg Tab PHA 09/23/24 Logged (Protonix 40mg Tab 09:00 Aspirin 81mg Chew Tab PHA 09/23/24 Logged (Aspirin 81mg Chew 04:30 Aspirin 81mg Ec Tab PHA 09/23/24 Logged (Aspirin 81mg Ec Tab 09:00 Nitroglycerin 0.4mg PHA 09/23/24 Logged Sl Tab (Nitrostat) 04:30 Troponin I High LAB 09/23/24 Logged Sensitivity 08:00 Troponin I High LAB 09/23/24 Logged Sensitivity 14:00 Troponin I High LAB 09/23/24 Logged Sensitivity 20:00 Creatine Kinase, Total LAB 09/24/24 Verified 04:00 Furosemide 40mg Vial PHA 09/23/24 Logged (Lasix 40mg Vial) 09:00 Initiate JEREMY 09/23/24 In Process Hyperglycemia Protoco 04:04 Insulin Regular, PHA 09/23/24 Logged Human 3ml (Humulin R 07:30 Hemoglobin A1c LAB 09/23/24 Logged 04:04 Vital Signs Date Time Temp Pulse Resp B/P (MAP) Pulse Ox O2 Delivery O2 Flow Rate FiO2 09/23/24 04:05 81 16 162/68 95 Nasal Cannula* 1 24 09/23/24 03:00 86 18 175/82 93 Room Air* 0 21 09/23/24 02:39 89 18 190/87 93 Room Air* 0 21 09/23/24 02:01 99.1 17 Room Air* 0 21 09/23/24 01:44 97.0 92 24 222/126 95 Room Air We will perform diagnostic labs, advanced imaging and administer medications according to the patient's complaint. Once the results are available, will re view and personally interpreted the labs to rule out any acute life-threatening emergency the trach require immediate intervention and treatment. I will then re-evaluate the patient after treatment and diagnostic exams have return to determine whether the patient requires any further testing, can safely be discharged home or need further admission to hospital for additional treatment and evaluation. Labs reviewed CBC shows a chronic anemia with a hemoglobin of 8.9 white count is 9.8 MCV is 105. BNP 7 is significant for chronic renal insufficiency with a BUN and creatinine of 35 and 1.2 troponins 52 brain natriuretic peptide is 521 Considering shortness of breath with anasarca, hypertensive emergency with congestive heart failure, I recommended admission to the hospital for further management 4:22 a.m. patient accepted by Eduard Angulo, mid-level provider for hospitalist group for admission and further management Medical Decision Making MDM MDM: Differential diagnosis: Decompensated CHF, bilateral leg pains could be neuropathy, from edema, osteoarthritis, peripheral arterial disease Rationale: Tests considered and ordered secondary to shared decision making include: labs, ECG and radiology Previous outside records reviewed: Old ER visits. Risk of complication and/or morbidity or mortality of patient management: None Medications-Per medication reconciliation Need for hospitalization: Patient does meet criteria for hospitalization. Need for emergency major/minor surgery: No There are no social concerns with this patient. Prescription drug management Prescriptions will include symptomatic care Patient's prior external medical records from other ER visits were reviewed by me as indicated. Prior testing and results from previous visits were reviewed. Prior tests were taken into account with medical decision making and resource utilization, independent historian/historians were used to obtain complete medical history. I independently interpreted the test that were performed, results were reviewed by me and considered findings on radiology if ordered. Medical management and examination interpretation discussions were had by me with other qualified healthcare professionals as indicated for the patient's care. Problem List Problem List: (1) Diabetes mellitus with hyperglycemia (2) Chronic renal failure (3) Hyperlipidemia (4) CAD (coronary artery disease) (5) Morbid obesity (6) Heart failure, diastolic, with acute decompensation (7) Hypertensive emergency DX & DISP Disposition: Inpatient Decision to Admit Time: 03:26 Departure Impression: Primary Impression: Heart failure, diastolic, with acute decompensation Additional Impressions: Hypertensive emergency, Diabetes mellitus, Morbid obesity, CAD (coronary artery disease), Hyperlipidemia, CKD (chronic kidney disease) Condition: Stable Additional Instructions: Patient was informed of all the diagnostic labs and procedures conducted in the emergency room today and demonstrated understanding of the results. I personally reviewed and interpreted all the diagnostic exams performed in the ER today. The patient will be admitted to the hospital for further treatment and evaluation. Disposition-admit to facility Condition-stable/guarded Course-uncertain at this time Pain status-decreased Assessment-exam unchanged Admission Certification- I certify that the patients status is appropriate and is based on my best clinical judgment and the patient's condition as documented in the medical records Referrals: TROY BERG MD (PCP) OMAR WILSON MD Sep 23, 2024 02:38
[2024-09-23 02:39] LABS: B-TYPE NATRIURETIC PEPTIDE 521 pg/mL (0-100)
--- NOTE | 2024-09-23 02:40 | NUR ---
PLACED ON [place].
[2024-09-23] MEDS: hydrALAZine 20MG/ML VIAL IV ONE (02:45)
[2024-09-23] MEDS: NITROGLYCERIN 1GM OINT 1 INCH/1GM TD ONE ×2 (02:45→22:36)
[2024-09-23] MEDS: acetaMINOPHEN 325 MG TAB PO ONE (03:15)
[2024-09-23] MEDS: morPHINE 4 MG SYG IVP ONE (03:43)
[2024-09-23] MEDS: ondanSETRON 4MG INJ IVP ONE (03:43)
--- NOTE | 2024-09-23 04:04 | HP ---
History of Present Illness Reason for Visit: pedal edema History of Present Illness Ms. Faye is a 59-year-old female that was seen and examined today on 09/23/2024. Patient is a good historian of personal health Patient states that she came to the emergency department with a chief complaint of pedal edema. Onset was two weeks ago. Location is to bilateral lower extremities. Duration is constant. Character is described as if, legs are swollen. There was no alleviating factors. There was no aggravating factors. Patient reports associated weakness. Today in the emergency department hemoglobin 8.9, hematocrit 27.9, MCV 105.7, troponin is 52, CK is 318, BNP 521. Emergency room physician recommended that patient be admitted with a diagnosis of CHF exacerbation. Chest x-ray is pending radiology interpretation. Past Medical History Patient History: Carcinomas MOTHER, Completed stroke FATHER, Diabetes mellitus MOTHER, FATHER, SISTER FHx: epilepsy SON Hypertension MOTHER, FATHER, SISTER PAST MEDICAL HISTORY: Hypertension, hyperlipidemia, history of orthostatic hypotension, ischemic cardiomyopathy, history of carotid artery stenosis, history of TIA/CVA, suspected obstructive sleep apnea, type 2 diabetes mellitus, obesity, anemia PAST SURGICAL HISTORY: History of percutaneous coronary intervention with placement of two stents in 09/2023 in [facility], hysterectomy, appendectomy, history of LEEP procedure, right carotid endarterectomy in 12/2023, left carotid artery stenting in 04/2024, recent PCI by Dr. Reid Lombardo to proximal left circumflex an overlapping fashion (3 x 22 mm and 2.75 x 18 mm maty [place] drug-eluting stents) on 06/14/2024, Hx of colonoscopy on 07/12 PAST SOCIAL HISTORY: Denies active smoking or alcohol consumption Review of Systems General: No Fever, No Chills, No Night Sweats, No Fatigue, No Malaise, No Appetite, No Other HEENT: No Head Aches, No Visual Changes, No Eye Pain, No Ear Pain, No Dysphasia, No Sinus Congestion, No Post Nasal Drip, No Sore Throat, No Other Pulmonary: No Dyspnea, No Cough, No Pleuritic Chest Pain, No Other Cardiovascular: Edema; No: Chest Pain, Palpitations, Orthopnea, Paroxysmal Noc. Dyspnea, Lt Headedness, Other Gastrointestinal: No: Nausea, Vomiting, Abdominal Pain, Diarrhea, Constipation, Melena, Hematochezia, Other Genitourinary: No Dysuria, No Frequency, No Incontinence, No Hematuria, No Retention, No Other Musculoskeletal: No: other, neck pain, shoulder pain, arm pain, back pain, hand pain, leg pain, foot pain Skin: No Urticaria, No Rash, No Other Neurological: No: Weakness, Numbness, Incoordination, Change in speech, Confusion, Seizures, Other Allergies: Coded Allergies: Penicillins (Unverified Allergy, Severe, hives, 01/19/14) ceftriaxone (Unverified Allergy, Severe, hives, 01/19/14) Scheduled Amlodipine Besylate (Norvasc 5Mg Tab), 10 MG PO DAILY Aspirin (Aspirin EC), 81 MG PO DAILY, (Reported) Aspirin (Aspirin), 1 TAB PO DAILY, (Reported) Atorvastatin Calcium (Atorvastatin Calcium), 40 MG PO DAILY, (Reported) Atorvastatin Calcium (Atorvastatin Calcium), 1 TAB PO DAILY, (Reported) Bumetanide (Bumetanide), 1 MG PO DAILY Clonidine HCl (Clonidine HCl), 0.1 MG PO AM, (Reported) Clopidogrel Bisulfate (Clopidogrel), 75 MG PO DAILY, (Reported) Clopidogrel Bisulfate (Clopidogrel), 75 MG PO AM Cyanocobalamin (Vitamin B-12) (Vitamin B-12), 1,000 MCG PO DAILY Ferrous Fumarate/Folic Acid (Hemocyte-F Tablet), 1 TAB PO DAILY, (Reported) Gabapentin (Gabapentin), 300 MG PO TID, (Reported) Hydralazine HCl (Hydralazine HCl), 50 MG PO TID, (Reported) Hydralazine HCl (Hydralazine HCl), 1 TAB PO TID, (Reported) Isosorbide Mononitrate (Isosorbide Mononitrate), 1 TAB PO BID, (Reported) Levofloxacin (Levofloxacin), 1 TAB PO DAILY Metoprolol Succinate (Toprol Xl), 50 MG PO DAILY Mupirocin (Mupirocin Ointment), 1 APPL TP TID Omeprazole (Omeprazole), 20 MG PO DAILY, (Reported) Semaglutide (Ozempic), 2 MG SQ QWEEK, (Reported) Scheduled PRN Albuterol Sulfate (Ventolin Hfa), 2 PUFF IH Q4HPRN PRN for wheezing, (Reported) Nitroglycerin (Nitroglycerin), 1 TAB SL AD PRN for CHEST PAIN, (Reported) Exam Vital Signs Vital Signs Date Time Temp Pulse Resp B/P (MAP) Pulse Ox O2 Delivery O2 Flow Rate FiO2 09/23/24 03:00 86 18 175/82 93 Room Air* 0 21 09/23/24 02:01 99.1 General Appearance: Alert, Oriented X3, Cooperative, No acute distress HEENT: Atraumatic, PERRLA, EOMI, Mucous membr. moist/pink Respiratory: Clear to auscultation, Other (Diminished air entry to bilateral lower lobes) Cardiovascular: Regular rate, Regular rhythm, Normal S1, Normal S2 Abdominal: Normal bowel sounds, Soft, No tenderness Extremities: Other (+2-3 3 pitting edema to bilateral lower extremities) Skin: No significant lesion Neuro: Normal speech, Strength at 5/5 X4 ext, Cranial nerves 3-12 NL Psych/Mental Status: Mental status NL, Mood NL, Thoughts/Content NL Assessment/Plan ASSESSMENT: [ Acute on chronic diastolic heart failure exacerbation with EF 50-55% by 2D echo on 06/22/2024, POA Anemia of chronic disease, POA CKD stage IIIA, POA Mild rhabdomyolysis, POA Elevated troponin, POA hypertension Hyperlipidemia Ischemic cardiomyopathy History of carotid artery stenosis History of TIA/CVA Diabetes mellitius type2, POA ] PLAN: [ Admit patient to medical floor as inpatient status. Place patient on telemetry monitoring. Lasix 40 mg IV twice daily. Monitor intake and output every shift. Weight patient daily. 1500 mL daily fluid restriction. Monitor patient's labs. Transfuse packed red blood cells for hemoglobin less than 7 mg/dL. Avoid nephrotoxic agents when possible. Renally dose all medications when possible. Repeat CK in a.m.. Administer aspirin 162 mg by mouth times 1 dose Continue aspirin 81 mg by mouth once daily Nitroglycerin sublingual 0.4 mg as needed for chest pain every 5 minutes, max 3 doses, hold for systolic blood pressure less than 100 mmHg. Trend troponin every 6 hours x 3 sets Supplemental oxygen to maintain O2 saturation greater than 92% Consult cardiology if any elevation in troponin or troponin uptrending Check hemoglobin A1c in a.m. Glucometer checks a.c. and HS 1800 ADA diet Humulin R sliding scale Consider resuming home medications once they are reconciled For now, Hydralazine 10 mg IV every 4 hours for systolic blood pressure greater than 160 mmHg GI prophylaxis, Protonix DVT prophylaxis, heparin ADVANCED CARE PLANNING 1. Which of the following were discussed? Hospice Care - Yes Therapeutic options - Yes Advance Directives - Yes- patient states she does not have any advance directives in place at this time, however has been can make decisions for her if she becomes unable. Other discussions - patient wishes to remain a full code at this time 2. Discussed with who? Patient 3. Voluntary nature of this service was explained to the patient? Yes 4. Amount of time spent - ___ 16 minutes ____ 5. Reviewed by Physician? (if this service was performed by NPP) Yes This document was generated in part using voice recognition software, occasional wrong word or sound alike substitutions may have occurred due to the inherent limitations of voice recognition software. Read the chart carefully and recognize using context, where the substitutions have occurred. Although every effort was made to edit the content, pointing machine operator and typing errors may occur ATTESTATION BY PHYSICIAN I have seen and examined the patient. I reviewed the documentation, medical decision making, and treatment plan as noted by the mid-level provider above. I agree with the findings and plan of care. LAURA MANRIQUEZ [facility] Sep 23, 2024 04:04
[2024-09-23 04:18] LABS: APPEARANCE,URINE TURBID (CLEAR); BILIRUBIN,URINE NEGATIVE (NEGATIVE); COLOR,URINE YELLOW (YELLOW); GLUCOSE, URINE (UA) 200 mg/dL (NEGATIVE); KETONES,URINE NEGATIVE (NEGATIVE); LEUKOCYTE ESTERASE ,URINE 500 Leu/uL (NEGATIVE); NITRATE,URINE NEGATIVE (NEGATIVE); OCCULT BLOOD,URINE MODERATE (NEGATIVE); PROTEIN,URINE 600 mg/dL (NEGATIVE); UROBILINOGEN,URINE 0.2 mg/dL (0.2-1.0)
[2024-09-23 04:22] LABS: ADD UA MICROSCOPIC YES
[2024-09-23 04:27] LABS: MUCUS,URINE RARE LPF (None Seen); SQUAMOUS EPITHELIAL CELL,UR MOD /HPF (0-2); WBC,URINE TNTC /HPF (0-1)
[2024-09-23] MEDS ORDERED: NITROGLYCERIN 0.4 MG SL TAB SL PRN (04:30)
[2024-09-23] MEDS ORDERED: hydrALAZine 20MG/ML VIAL IV PRN (04:30)
[2024-09-23] MEDS: furoSEMIDE 40MG VIAL IV ONE (04:33)
[2024-09-23] MEDS: ASPIRIN 81MG CHEW TAB PO ONE (04:33)
[2024-09-23 04:34] LABS: BACTERIA,URINE Many /HPF (None Seen)
--- NOTE | 2024-09-23 06:25 | EKG ---
[facility] Test Date: 2024-09-23 Test Time: 01:58:20 Pat Name: LEXX BROWER Department: EDHIP Room: ED 14 Gender: F Head Sampler: [id number] : 1965 Requested By: OMAR GAYLE Order Number: [id number] Reading MD: Anthony Tang Measurements Intervals Royal Rate: 89 P: 44 UT: 179 QRS: 7 QRSD: 101 T: 127 QT: 411 QTc: 501 Interpretive Statements Sinus rhythm Nonspecific T abnormalities, lateral leads Compared to ECG 09/20/2024 12:57:09 T-wave abnormality now present Electronically Signed On 09-23-2024 14:48:46 COPY CENTER OPERATOR by Anthony Tang Please click the below link to view image of tracing.
[2024-09-23] MEDS: INSULIN humuLIN R 100 UNIT/ML 3ML SQ SCH (07:30)
[2024-09-23 07:53] LABS: HEMOGLOBIN A1C 6.4 % (4.0-6.0)
[2024-09-23] MEDS ORDERED: PoTASSium chloRIDE 20MEQ ER 20 MEQ ERTAB PO PRN (08:30)
[2024-09-23] MEDS ORDERED: PoTASSium chloRIDE 20MEQ/100ML 100 ML IV PRN (08:30)
[2024-09-23] MEDS ORDERED: PoTASSium chl 10% ELIXIR 20MEQ 20 MEQ/15 ML UDCUP PO PRN (08:30)
[2024-09-23] MEDS ORDERED: MAGNESIUM 2GM PREMIX 50ML 50 ML IV PRN (08:30)
--- NOTE | 2024-09-23 09:22 | HMCIMG ---
PORTABLE CHEST RADIOGRAPH INDICATION: CHEST PAIN COMPARISON: 09/20/2024 FINDINGS: Heart is slightly enlarged. Pulmonary vascularity appears nominally enlarged. No abnormal pulmonary parenchymal opacity or consolidation identified. No significant pleural effusion noted. No pneumothorax detected. IMPRESSION: Mild cardiac enlargement and nominal pulmonary vascular congestion.
[2024-09-23] MEDS: levoFLOXacin 500 MG/D5W 100 ML IV SCH (09:23)
[2024-09-23] MEDS: furoSEMIDE 40MG VIAL IVP SCH (09:24)
[2024-09-23] MEDS: ASPIRIN 81 MG EC TAB PO SCH (09:25)
[2024-09-23] MEDS: PANTOPrazole 40 MG TAB DR PO SCH (09:25)
[2024-09-23] MEDS: HEParin 5,000 UNIT VIAL SQ SCH (09:25)
[2024-09-23] MEDS ORDERED: BUME0.5T4 PO ×2 (11:06)
[2024-09-23] MEDS: ondanSETRON 4MG INJ IV PRN (12:36)
[2024-09-23] MEDS: hydrALAZine 20MG/ML VIAL IV PRN (12:37)
[2024-09-23] MEDS: morPHINE 2 MG SYG IVP PRN (12:37)
--- NOTE | 2024-09-23 13:23 | NUR ---
DCP Patient is recently and living alone in a duplex apartment with a walk in shower. States disabled and remains independent. feels safe in her home. States able to complete ADL's on her own in her home. States she has a walker with a seat and a shower chair. Denies home health services, home care provider or dialysis. PCP -Clyde Mina, [facility]. Upon discharge, will need transportation. Currently, working with Financial Counseling to reapply for Medicaid services. She states she had Medicaid and was canceled last January 2024. She had [facility]. Her DME was Tailored before her medicaid was canceled. 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 Currently, on 2L of oxygen nasal canula. Addendum: 09/23/24 at 1336 by GERALDINE WONG RN CM Amended: Links added.
[2024-09-23 20:00] VITALS: BP 181/77; PULSE 102; RESP 20; TEMP 98.8
[2024-09-23 22:00] VITALS: O2SAT 93
[2024-09-23 22:15] VITALS: BP 191/71; PULSE 100
[2024-09-24] VITALS (9 sets, daily range): BP systolic 141–197; BP diastolic 72–98; PULSE 74–114; RESP 18–20; TEMP 98–98.7; O2SAT 93–95
[2024-09-24] MEDS: cloNIDine HCL 0.1 MG TABLET PO ONE (04:20)
--- NOTE | 2024-09-24 06:37 | NUR ---
REPORT GIVEN TO NURSE BRENDA, PATIENT TO GO UP TO ROOM 220 AFTER 7AM PER OPTIMIZATION SPECIALIST.
--- NOTE | 2024-09-24 07:15 | NUR ---
RECD REPORT FROM NEELAM WOOTEN, PATIENT PENDING TRANSPORT BY MICHA WOOTEN UPSTAIRS TO ROOM 220
--- NOTE | 2024-09-24 07:30 | NUR ---
PT WAS ADMITTED FROM ER VIA STRETCHER AND AT PRESENT IS C/O NAUSEA AND WAS GIVEN ZOFRAN. PT WAS ASSESSED AND WILL DOCUMENT.
--- NOTE | 2024-09-24 07:40 | NUR ---
PT WAS JUST TRANSFERRED UPSTAIRS. TX POST CHANGE OF SHIFT.
[2024-09-24] MEDS ORDERED: cefTRIAXone 1G VIAL IVPB SCH (08:00)
--- NOTE | 2024-09-24 08:03 | PN ---
[facility] PROGRESS NOTE Date of Service: Sep 24, 2024 Time of Service: 07:51 SUBJECTIVE: [ ] This is a 59-year-old female that was admitted on 09/23/2024 with chief complaints of shortness a breath associated with pedal edema. This has been ongoing for two weeks patient follows Dr. Lombardo has an appointment next week. Patient was started on IV Lasix patient was admitted for CHF exacerbation. 09/24/2024 patient is lying in bed continues on oxygen supplemental2 L patient continues with IV Lasix. Patient denied chest pain we will have PT to get patient out of bed to chair most likely we will test her for 6 minute walk. All questions addressed. REVIEW OF SYSTEMS CONSTITUTIONAL: Denies fevers, chills, or night sweats. No unintentional weight loss reported. NEUROLOGICAL: Denies headache, amaurosis fugax, motor weakness, sensory deficit, vertigo/spinning sensation, gait abnormalities, or tremors. ENT: No hearing loss, otalgia, otorrhea, rhinitis, rhinorrhea, hoarseness, or sore throat. CARDIOVASCULAR: Denies any exertional angina, dyspnea on exertion, orthopnea, paroxysmal nocturnal dyspnea, palpitations, life-threatening arrhythmias, cla udication. PULMONARY: Denies any shortness of breath, cough, phlegm/sputum, hemoptysis, pleuritic chest pain. SLEEP: Denies morning headaches, daytime somnolence or napping. Denies difficulty falling asleep, staying asleep, waking from sleep. Denies knowledge of snoring. GASTROINTESTINAL: Denies any type of dysphagia to either liquids or solids. Denies nausea, vomiting, pyrosis, early satiety, abdominal pain, diarrhea, constipation, or changes in stool consistency or caliber. Denies coffee-ground emesis, hematemesis, hematochezia, or melanotic stools. GENITOURINARY: Denies frequency, urgency, nocturia, hematuria or incontinence (Storage/Irritative symptoms.) Low urinary stream, straining to void, urinary intermittency or hesitancy, splitting of the voiding stream, terminal dribbling. ENDOCRINOLOGIC: Denies polyuria, polydipsia, polyphagia or heat/cold intolerances. HEMATOLOGIC: Denies thrombophilia/previous clots, or coagulopathy/bleeding disorders. ONCOLOGIC: Denies personal history of malignancy. DERMATOLOGIC: Denies rashes or pruritus. PSYCHIATRIC: Denies any suicidal or homicidal ideation. Denies hallucinations. PHYSICAL EXAM GENERAL APPEARANCE: The patient is awake, alert, and oriented, in no acute cardiopulmonary distress. NEUROLOGICAL: Cranial nerves II-XII grossly intact. Motor is 5/5 in bilateral upper and lower extremities proximal to distal. No sensory deficits. HEENT: Face is symmetric. Pupils are equal and reactive. Extraocular movements are intact. NECK: Supple. No JVD. No thyromegaly. No submental, submandibular, pre- /postauricular, occipital or supraclavicular lymphadenopathy. CHEST: Normal chest expansion. No Telemetry. LUNGS: Absence of any rales, rhonchi or any wheezing. CARDIOVASCULAR: Regular. S1 and S2 normal. No appreciable rubs, murmurs or gallops. ABDOMEN: Soft, nontender, and nondistended. There is no rebound, voluntary guarding, or rigidity. : Deferred. No Madrigal. EXTREMITIES: Non-edematous and not cyanotic. No clubbing. Good capillary refill. SKIN: No skin breakdown. Vital Signs (last 8hr) Date Time Temp Pulse Resp B/P (MAP) Pulse Ox O2 Delivery O2 Flow Rate FiO2 09/24/24 06:13 81 163/72 09/24/24 04:20 92 187/84 09/24/24 04:00 98.8 92 20 187/84 96 Nasal Cannula 2.0 09/24/24 00:00 98.2 90 20 180/73 94 Nasal Cannula 2.0 LABS: Laboratory: Test 09/24/24 06:12 09/23/24 21:07 09/23/24 07:09 09/23/24 03:49 Range/Units Whole Blood Glucose 141 H 70-110 MG/DL Troponin I High Sensitivity 53 *H 4-50 ng/L Hemoglobin A1c 6.4 H 4.0-6.0 % Estimated Average Glucose (eAG) 137 H 70-126 mg/dL Urine Color YELLOW YELLOW Urine Appearance TURBID CLEAR Urine pH 6.0 5.0-8.0 Urine Specific Jackman 1.018 1.001-1.031 Urine Protein 600 H NEGATIVE mg/dL Urine Glucose (UA) 200 H NEGATIVE mg/dL Urine Ketones NEGATIVE NEGATIVE mg/dL Urine Occult Blood MODERATE H NEGATIVE Urine Nitrate NEGATIVE NEGATIVE Urine Bilirubin NEGATIVE NEGATIVE mg/dL Urine Urobilinogen 0.2 0.2-1.0 mg/dL Urine Leukocyte Esterase 500 H NEGATIVE Gopi/uL Urine RBC 11-25 H 0-1 /HPF Urine WBC TNTC H 0-1 /HPF Urine Squamous Epithelial Cells MOD 0-2 /HPF Urine Bacteria Many H None Seen /HPF Test 09/23/24 02:32 09/23/24 02:02 Range/Units Troponin I < 0.05 0.00-0.05 ng/mL White Blood Count 9.8 4.8-10.8 K/uL Red Blood Count 2.64 L 4.00-5.50 MIL/uL Hemoglobin 8.9 L 12.0-16.0 g/dL Hematocrit 27.9 L 36-48 % Mean Corpuscular Volume 105.7 H 79-99 fL Mean Corpuscular Hemoglobin 33.7 H 27.0-33.0 pg Mean Corpuscular Hemoglobin Concent 31.9 L 32.0-36.0 g/dL Red Cell Distribution Width 13.6 11.0-15.5 % Platelet Count 234 130-400 K/uL Mean Platelet Volume 9.5 7.5-10.5 fL Immature Granulocyte % (Auto) 0.5 0-1 % Neutrophils (%) (Auto) 75.7 40.0-77.0 % Lymphocytes (%) (Auto) 13.2 L 21.0-51.0 % Monocytes (%) (Auto) 6.9 3.0-13.0 % Eosinophils (%) (Auto) 3.3 0.0-8.0 % Basophils (%) (Auto) 0.4 0.0-5.0 % Neutrophils # (Auto) 7.5 1.8-7.7 K/uL Lymphocytes # (Auto) 1.3 1.0-4.8 K/uL Monocytes # (Auto) 0.7 0.1-1.0 K/uL Eosinophils # (Auto) 0.32 0.00-0.70 K/uL Basophils # (Auto) 0.04 0.00-0.20 K/uL Absolute Immature Granulocyte (auto 0.05 0-1 K/uL Nucleated Red Blood Cells 0.0 0.0-0.19 % Sodium Level 140 136-145 mmol/L Potassium Level 4.2 3.5-5.1 mmol/L Chloride Level 106 101-111 mmol/L Carbon Dioxide Level 27 21-32 mmol/L Blood Urea Nitrogen 35 H 7-18 mg/dL Creatinine 1.2 H 0.5-1.0 mg/dL Glomerular Filtration Rate Calc 52 >90 mL/min Random Glucose 162 H 70-105 mg/dL Total Calcium 8.2 L 8.5-10.1 mg/dL Total Creatine Kinase 318 #H 21-232 U/L B-Type Natriuretic Peptide 521 H 0-100 pg/mL Current Medications Medications (Trade) Dose Ordered Sig/Rubi Route PRN Reason Start Time Stop Time Status Last Admin Dose Admin Aspirin (Aspirin 81mg Ec Tab) 81 mg DAILY PO 09/23/24 09:00 10/23/24 08:59 09/23/24 09:25 81 MG Furosemide (LASix 40MG VIAL) 40 mg BID IVP 09/23/24 09:00 10/23/24 08:59 09/23/24 20:14 40 MG Heparin Sodium (Porcine) (HEParin 5,000 UNIT VIAL) 5,000 unit BID SQ 09/23/24 09:00 10/23/24 08:59 09/23/24 20:36 5,000 UNIT Hydralazine HCl (APRESOLine 20MG INJ) 5 mg Q6H PRN IV For:SBP above 160;DBP above 90 09/23/24 10:30 10/23/24 10:29 09/24/24 01:37 5 MG Hydralazine HCl (APRESOLine 20MG INJ) 10 mg Q6H PRN IV For:SBP above 160;DBP above 90 09/23/24 04:30 09/23/24 08:06 DC Insulin Human Regular (humuLIN R 100 UNIT/ML 3ML) INSULIN SLIDING SCAL... ACHS SQ 09/23/24 07:30 10/23/24 07:29 09/23/24 11:40 4 UNIT Levofloxacin/ Dextrose (LEvaquIN 500 MG/ D5W 100 ML) 500 mg Q48H IV 09/23/24 08:30 10/03/24 08:29 09/23/24 09:23 500 MG Magnesium Sulfate 50 ml @ 0 mls/hr PROTOCOL PRN IV low mag level 09/23/24 08:30 10/23/24 08:29 Morphine Sulfate (morPHINE 2MG SYG) 2 mg Q4H PRN IVP SEVERE PAIN (7-10) 09/23/24 04:30 09/30/24 04:29 09/23/24 23:09 2 MG Nitroglycerin (Nitrostat) 0.4 mg PROTOCOL PRN SL CHEST PAIN 09/23/24 04:30 10/23/24 04:29 Ondansetron HCl (zoFRAN 4MG INJ) 4 mg Q6H PRN IV NAUSEA/VOMITING 09/23/24 04:30 10/23/24 04:29 09/23/24 20:14 4 MG Pantoprazole Sodium (PROTonix 40MG TAB) 40 mg DAILY PO 09/23/24 09:00 10/23/24 08:59 09/23/24 09:25 40 MG Potassium Chloride 100 ml @ 100 mls/hr AD PRN IV POTASSIUM PROTOCOL 09/23/24 08:30 10/23/24 08:29 Potassium Chloride (K-Dur/Klor-Con 20meq) 20 meq AD PRN PO POTASSIUM PROTOCOL 09/23/24 08:30 10/23/24 08:29 Potassium Chloride (KCl 10% Elixir 20meq/15ml) 20 meq AD PRN PO POTASSIUM PROTOCOL 09/23/24 08:30 10/23/24 08:29 DIAGNOSTICS / RADIOLOGY: [ ] ASSESSMENT: Acute respiratory failure with hypoxia requiring oxygen supplemental. POA Acute on chronic diastolic heart failure exacerbation with EF 50-55% by 2D echo on 06/22/2024, POA UTI POA Anemia of chronic disease, POA CKD stage IIIA, POA Mild rhabdomyolysis, POA Elevated troponin, most likely secondary to ischemic oxygen demand POA hypertension Hyperlipidemia Ischemic cardiomyopathy History of carotid artery stenosis History of TIA/CVA Diabetes mellitius type2, POA obesity BMI: 35 PLAN: [ ] Admit: Medical surgical with tele condition: Guarded Status: Full code IVF: [facility] Antibiotics: Levaquin 250 mg every48 hours. Allergic to penicillin Continue with Lasix 40 mg IV. every12 hours fluid restrictions 1.5 L per day daily weight strict I&Os Oxygen supplement to keep O2 sats above 92%. We will follow-up urine cultures Labs cbc, cmp, mag+ Replace electrolytes as needed as per protocol to keep potassium above 4.0 magnesium 2.0. Home medications reviewed and reconciled Supportive measures: DVT ppx, GI ppx all questions answered PT services to eval and treat out of bed to chair. resp to wean off oxygen as tolerated Supervising MD: Dr. cardenas c/d This document was generated in part using voice recognition software, occasional wrong word or sound alike substitutions may have occurred due to the inherent limitations of voice recognition software. Read the chart carefully and recognize using context, where the substitutions have occurred. Although every effort was made to edit the content, trades helper and typing errors may occur ATTESTATION BY PHYSICIAN I have seen and examined the patient. I reviewed the documentation, medical decision making, and treatment plan as noted by the mid-level provider above. I agree with the findings and plan of care. Aj Cardenas MD, ELIZABETH NP Sep 24, 2024 08:03 AJ CARDENAS MD Sep 26, 2024 12:19
[2024-09-24] MEDS: HYDRALAZINE HCL PO SCH (09:00)
[2024-09-24] MEDS: FOLIC ACID PO SCH (09:00)
[2024-09-24] MEDS: FERROUS FUMARATE PO SCH (09:00)
[2024-09-24 09:02] LABS: ALBUMIN 2.3 g/dL (3.5-5.0); BILIRUBIN,TOTAL 0.4 mg/dL (0.2-1.0); CREATININE 1.3 mg/dL (0.5-1.0); PHOSPHORUS 4.8 mg/dL (2.5-4.9); POTASSIUM 4.2 mmol/L (3.5-5.1)
[2024-09-24 09:19] LABS: TOTAL PROTEIN, SERUM 5.8 g/dL (6.0-8.3)
[2024-09-24 09:37] LABS: BASOPHILS # (AUTO) 0.02 K/uL (0.00-0.20); BASOPHILS % (AUTO) 0.3 % (0.0-5.0); EOSINOPHILS # (AUTO) 0.17 K/uL (0.00-0.70); EOSINOPHILS % (AUTO) 2.6 % (0.0-8.0); HEMATOCRIT 27.9 % (36-48); IMMATURE GRANULOCYTE ABSOLUTE 0.03 K/uL (0-1); LYMPHOCYTES # (AUTO) 0.8 K/uL (1.0-4.8); LYMPHOCYTES % (AUTO) 12.7 % (21.0-51.0); MEAN CORPUSCULAR HEMOGLOBIN 34.1 pg (27.0-33.0); MEAN CORPUSCULAR HGB CONC 31.9 g/dL (32.0-36.0); MEAN CORPUSCULAR VOLUME 106.9 fL (79-99); MONOCYTES # (AUTO) 0.5 K/uL (0.1-1.0); MONOCYTES % (AUTO) 7.7 % (3.0-13.0); NEUTROPHILS % (AUTO) 76.2 % (40.0-77.0); PLATELET COUNT (AUTO) 212 K/uL (130-400); RED BLOOD CELL COUNT(AUTO) 2.61 MIL/uL (4.00-5.50); RED CELL DISTRIBUTION WIDTH 13.2 % (11.0-15.5); WHITE BLOOD COUNT (AUTO) 6.6 K/uL (4.8-10.8)
[2024-09-24] MEDS: CYANOCOBALAMIN (VITAMIN B-12) 1,000 MCG TABLET PO SCH (09:43)
[2024-09-24] MEDS: ISOSORBIDE MONONITRATE 20 MG TABLET PO SCH (09:44)
[2024-09-24] MEDS: atorVAStatin 40 MG TABLET PO SCH (09:44)
[2024-09-24 09:45] LABS: B-TYPE NATRIURETIC PEPTIDE 360 pg/mL (0-100)
[2024-09-24] MEDS: GABAPENTIN 300 MG CAPSULE PO SCH (09:45)
[2024-09-24] MEDS: metOPROLol sucCINATE 50 MG TAB.SR.24H PO SCH (09:45)
[2024-09-24] MEDS: cloPIDOgrel 75MG TAB PO SCH (09:46)
[2024-09-24] MEDS: cloNIDine HCL 0.1 MG TABLET PO SCH (09:47)
[2024-09-24] MEDS: amLODIPine 5 MG TAB PO SCH (09:47)
[2024-09-24] MEDS: LACTULOSE 20 GM/30 ML UDCUP PO ONE (12:30)
[2024-09-24] MEDS ORDERED: LACTULOSE 20 GM/30 ML UDCUP PO PRN (12:30)
--- NOTE | 2024-09-24 14:00 | NUR ---
Order received and spoke to patient who requested PT eval not be done until tomorrow as she feels nauseated. Informed SJ, nurse. PT team to follow.
[2024-09-25] VITALS (8 sets, daily range): BP systolic 144–175; BP diastolic 59–79; PULSE 70–78; RESP 18; TEMP 98.2–98.7; O2SAT 97
[2024-09-25] MEDS: HYDROcodone/APAP 5/325 1 TAB TABLET PO PRN (00:26)
[2024-09-25 05:04] LABS: BASOPHILS # (AUTO) 0.02 K/uL (0.00-0.20); BASOPHILS % (AUTO) 0.3 % (0.0-5.0); EOSINOPHILS # (AUTO) 0.29 K/uL (0.00-0.70); EOSINOPHILS % (AUTO) 4.8 % (0.0-8.0); HEMATOCRIT 22.9 % (36-48); IMMATURE GRANULOCYTE ABSOLUTE 0.04 K/uL (0-1); LYMPHOCYTES # (AUTO) 1.2 K/uL (1.0-4.8); LYMPHOCYTES % (AUTO) 20.2 % (21.0-51.0); MEAN CORPUSCULAR HEMOGLOBIN 33.9 pg (27.0-33.0); MEAN CORPUSCULAR HGB CONC 32.8 g/dL (32.0-36.0); MEAN CORPUSCULAR VOLUME 103.6 fL (79-99); MONOCYTES # (AUTO) 0.5 K/uL (0.1-1.0); MONOCYTES % (AUTO) 8.3 % (3.0-13.0); NEUTROPHILS # (AUTO) 3.9 K/uL (1.8-7.7); NEUTROPHILS % (AUTO) 65.7 % (40.0-77.0); PLATELET COUNT (AUTO) 191 K/uL (130-400); RED BLOOD CELL COUNT(AUTO) 2.21 MIL/uL (4.00-5.50); RED CELL DISTRIBUTION WIDTH 12.9 % (11.0-15.5)
[2024-09-25 05:21] LABS: BILIRUBIN,TOTAL 0.3 mg/dL (0.2-1.0); CREATININE 1.3 mg/dL (0.5-1.0); TOTAL PROTEIN, SERUM 5.1 g/dL (6.0-8.3)
[2024-09-25 05:32] LABS: B-TYPE NATRIURETIC PEPTIDE 297 pg/mL (0-100)
--- NOTE | 2024-09-25 08:55 | PN ---
[facility] PROGRESS NOTE Date of Service: Sep 25, 2024 Time of Service: 08:50 SUBJECTIVE: [ ] This is a 59-year-old female that was admitted on 09/23/2024 with chief complaints of shortness a breath associated with pedal edema. This has been ongoing for two weeks patient follows Dr. Lombardo has an appointment next week. Patient was started on IV Lasix patient was admitted for CHF exacerbation. 09/24/2024 patient is lying in bed continues on oxygen supplemental2 L patient continues with IV Lasix. Patient denied chest pain we will have PT to get patient out of bed to chair most likely we will test her for 6 minute walk. All questions addressed. 09/25/24 patient is seen and examined. Encouraged patient out of bed to chair as tolerated continues on 2 L we will be on room air and get a 6 minute walk IV diuretics changed to p.o.. Patient denied chest pain palpitation edematous to l ower extremities improved. Patient continues with nauseated we will get a CT abdomen and pelvis without contrast. REVIEW OF SYSTEMS CONSTITUTIONAL: Denies fevers, chills, or night sweats. No unintentional weight loss reported. NEUROLOGICAL: Denies headache, amaurosis fugax, motor weakness, sensory deficit, vertigo/spinning sensation, gait abnormalities, or tremors. ENT: No hearing loss, otalgia, otorrhea, rhinitis, rhinorrhea, hoarseness, or sore throat. CARDIOVASCULAR: Denies any exertional angina, dyspnea on exertion, orthopnea, paroxysmal nocturnal dyspnea, palpitations, life-threatening arrhythmias, claudication. PULMONARY: Denies any shortness of breath, cough, phlegm/sputum, hemoptysis, pleuritic chest pain. SLEEP: Denies morning headaches, daytime somnolence or napping. Denies difficulty falling asleep, staying asleep, waking from sleep. Denies knowledge of snoring. GASTROINTESTINAL: Denies any type of dysphagia to either liquids or solids. Denies nausea, vomiting, pyrosis, early satiety, abdominal pain, diarrhea, constipation, or changes in stool consistency or caliber. Denies coffee-ground emesis, hematemesis, hematochezia, or melanotic stools. GENITOURINARY: Denies frequency, urgency, nocturia, hematuria or incontinence (Storage/Irritative symptoms.) Low urinary stream, straining to void, urinary intermittency or hesitancy, splitting of the voiding stream, terminal dribbling. ENDOCRINOLOGIC: Denies polyuria, polydipsia, polyphagia or heat/cold intolerances. HEMATOLOGIC: Denies thrombophilia/previous clots, or coagulopathy/bleeding disorders. ONCOLOGIC: Denies personal history of malignancy. DERMATOLOGIC: Denies rashes or pruritus. PSYCHIATRIC: Denies any suicidal or homicidal ideation. Denies hallucinations. PHYSICAL EXAM GENERAL APPEARANCE: The patient is awake, alert, and oriented, in no acute cardiopulmonary distress. NEUROLOGICAL: Cranial nerves II-XII grossly intact. Motor is 5/5 in bilateral upper and lower extremities proximal to distal. No sensory deficits. HEENT: Face is symmetric. Pupils are equal and reactive. Extraocular movements are intact. NECK: Supple. No JVD. No thyromegaly. No submental, submandibular, pre- /postauricular, occipital or supraclavicular lymphadenopathy. CHEST: Normal chest expansion. No Telemetry. LUNGS: Absence of any rales, rhonchi or any wheezing. CARDIOVASCULAR: Regular. S1 and S2 normal. No appreciable rubs, murmurs or gallops. ABDOMEN: Soft, nontender, and nondistended. There is no rebound, voluntary guarding, or rigidity. : Deferred. No Madrigal. EXTREMITIES: Non-edematous and not cyanotic. No clubbing. Good capillary refill. SKIN: No skin breakdown. Vital Signs (last 8hr) Date Time Temp Pulse Resp B/P (MAP) Pulse Ox O2 Delivery O2 Flow Rate FiO2 09/25/24 03:52 98.2 71 18 153/76 97 Nasal Cannula 2.0 LABS: Laboratory: Test 09/25/24 06:24 09/25/24 03:23 09/24/24 08:00 Range/Units Whole Blood Glucose 105 70-110 MG/DL White Blood Count 6.0 4.8-10.8 K/uL Red Blood Count 2.21 L 4.00-5.50 MIL/uL Hemoglobin 7.5 L 12.0-16.0 g/dL Hematocrit 22.9 L 36-48 % Mean Corpuscular Volume 103.6 H 79-99 fL Mean Corpuscular Hemoglobin 33.9 H 27.0-33.0 pg Mean Corpuscular Hemoglobin Concent 32.8 32.0-36.0 g/dL Red Cell Distribution Width 12.9 11.0-15.5 % Platelet Count 191 130-400 K/uL Mean Platelet Volume 9.7 7.5-10.5 fL Immature Granulocyte % (Auto) 0.7 0-1 % Neutrophils (%) (Auto) 65.7 40.0-77.0 % Lymphocytes (%) (Auto) 20.2 L 21.0-51.0 % Monocytes (%) (Auto) 8.3 3.0-13.0 % Eosinophils (%) (Auto) 4.8 0.0-8.0 % Basophils (%) (Auto) 0.3 0.0-5.0 % Neutrophils # (Auto) 3.9 1.8-7.7 K/uL Lymphocytes # (Auto) 1.2 1.0-4.8 K/uL Monocytes # (Auto) 0.5 0.1-1.0 K/uL Eosinophils # (Auto) 0.29 0.00-0.70 K/uL Basophils # (Auto) 0.02 0.00-0.20 K/uL Absolute Immature Granulocyte (auto 0.04 0-1 K/uL Nucleated Red Blood Cells 0.0 0.0-0.19 % Sodium Level 140 136-145 mmol/L Potassium Level 4.0 3.5-5.1 mmol/L Chloride Level 107 101-111 mmol/L Carbon Dioxide Level 33 H 21-32 mmol/L Blood Urea Nitrogen 30 H 7-18 mg/dL Creatinine 1.3 H 0.5-1.0 mg/dL Glomerular Filtration Rate Calc 47 >90 mL/min Random Glucose 106 H 70-105 mg/dL Total Calcium 8.0 L 8.5-10.1 mg/dL Magnesium Level 2.00 1.80-2.40 mg/dL Total Bilirubin 0.3 # 0.2-1.0 mg/dL Aspartate Amino Transf (AST/SGOT) 12 10-37 U/L Alanine Aminotransferase (ALT/SGPT) 10 L 12-78 U/L Alkaline Phosphatase 62 50-136 U/L B-Type Natriuretic Peptide 297 H 0-100 pg/mL Total Protein 5.1 L 6.0-8.3 g/dL Albumin 2.0 L 3.5-5.0 g/dL Phosphorus Level 4.8 2.5-4.9 mg/dL Total Creatine Kinase 143 # 21-232 U/L Troponin I High Sensitivity 65 *H 4-50 ng/L Current Medications Medications (Trade) Dose Ordered Sig/Rubi Route PRN Reason Start Time Stop Time Status Last Admin Dose Admin Acetaminophen/ Hydrocodone Bitart (NORco 5/325MG) 1 tab Q6H PRN PO MODERATE PAIN (4-6) 09/24/24 23:50 09/29/24 23:49 09/25/24 00:26 1 TAB Amlodipine Besylate (NorvASC 5MG TAB) 10 mg DAILY PO 09/24/24 09:00 10/24/24 08:59 09/24/24 09:47 10 MG Aspirin (Aspirin 81mg Ec Tab) 81 mg DAILY PO 09/23/24 09:00 10/23/24 08:59 09/25/24 08:11 81 MG Atorvastatin Calcium (LIPItor 40MG) 40 mg DAILY PO 09/24/24 09:00 10/24/24 08:59 09/25/24 08:12 40 MG Ceftriaxone Sodium (ROCEphine 1G INJ) 1 gm Q24H IVPB 09/24/24 08:00 09/24/24 08:03 DC Clonidine HCl (CATApres 0.1 mg TAB) 0.1 mg AM PO 09/24/24 09:00 10/24/24 08:59 09/24/24 09:47 0.1 MG Clopidogrel Bisulfate (plaVIX 75MG) 75 mg DAILY PO 09/24/24 09:00 10/24/24 08:59 09/25/24 08:12 75 MG Furosemide (LASix 40MG VIAL) 40 mg BID IVP 09/23/24 09:00 10/23/24 08:59 09/25/24 08:12 40 MG Gabapentin (NEURontin 300 MG CAP) 300 mg DAILY PO 09/24/24 09:00 10/24/24 08:59 09/25/24 08:12 300 MG Heparin Sodium (Porcine) (HEParin 5,000 UNIT VIAL) 5,000 unit BID SQ 09/23/24 09:00 10/23/24 08:59 09/25/24 08:34 5,000 UNIT Home Med (Home Medication) Ferrous Fumarate/ Folic A... DAILY PO 09/24/24 09:00 10/24/24 08:59 Home Med (Home Medication) Hydralazine HCl 1 TAB TID PO 09/24/24 09:00 10/24/24 08:59 Hydralazine HCl (APRESOLine 20MG INJ) 5 mg Q6H PRN IV For:SBP above 160;DBP above 90 09/23/24 10:30 10/23/24 10:29 09/24/24 01:37 5 MG Hydralazine HCl (APRESOLine 20MG INJ) 10 mg Q6H PRN IV For:SBP above 160;DBP above 90 09/23/24 04:30 09/23/24 08:06 DC Insulin Human Regular (humuLIN R 100 UNIT/ML 3ML) INSULIN SLIDING SCAL... ACHS SQ 09/23/24 07:30 10/23/24 07:29 09/24/24 18:05 6 UNIT Isosorbide Mononitrate (Ismo) 10 mg BID PO 09/24/24 09:00 10/24/24 08:59 09/25/24 08:11 10 MG Lactulose (Constulose 20gm/ 30ml Udcup) 20 gm BID PRN PO CONSTIPATION 09/24/24 12:30 10/24/24 12:29 Levofloxacin/ Dextrose (LEvaquIN 500 MG/ D5W 100 ML) 500 mg Q48H IV 09/23/24 08:30 10/03/24 08:29 09/25/24 08:12 500 MG Magnesium Sulfate 50 ml @ 0 mls/hr PROTOCOL PRN IV low mag level 09/23/24 08:30 10/23/24 08:29 Metoprolol Succinate (TopROL XL) 50 mg DAILY PO 09/24/24 09:00 10/24/24 08:59 09/25/24 08:11 50 MG Morphine Sulfate (morPHINE 2MG SYG) 2 mg Q4H PRN IVP SEVERE PAIN (7-10) 09/23/24 04:30 09/30/24 04:29 09/23/24 23:09 2 MG Nitroglycerin (Nitrostat) 0.4 mg PROTOCOL PRN SL CHEST PAIN 09/23/24 04:30 10/23/24 04:29 Ondansetron HCl (zoFRAN 4MG INJ) 4 mg Q6H PRN IV NAUSEA/VOMITING 09/23/24 04:30 10/23/24 04:29 09/24/24 08:18 4 MG Pantoprazole Sodium (PROTonix 40MG TAB) 40 mg DAILY PO 09/23/24 09:00 10/23/24 08:59 09/25/24 08:11 40 MG Potassium Chloride 100 ml @ 100 mls/hr AD PRN IV POTASSIUM PROTOCOL 09/23/24 08:30 10/23/24 08:29 Potassium Chloride (K-Dur/Klor-Con 20meq) 20 meq AD PRN PO POTASSIUM PROTOCOL 09/23/24 08:30 10/23/24 08:29 Potassium Chloride (KCl 10% Elixir 20meq/15ml) 20 meq AD PRN PO POTASSIUM PROTOCOL 09/23/24 08:30 10/23/24 08:29 Vitamin B Complex (Vitamin B-12) 1,000 mcg DAILY PO 09/24/24 09:00 10/24/24 08:59 09/25/24 08:13 1,000 MCG DIAGNOSTICS / RADIOLOGY: [ ] ASSESSMENT: Acute respiratory failure with hypoxia requiring oxygen supplemental. POA Acute on chronic diastolic heart failure exacerbation with EF 50-55% by 2D echo on 06/22/2024, POA UTI gram negative POA Anemia of chronic disease, POA CKD stage IIIA, POA Mild rhabdomyolysis, POA Elevated troponin, most likely secondary to ischemic oxygen demand POA hypertension Hyperlipidemia Ischemic cardiomyopathy History of carotid artery stenosis History of TIA/CVA Diabetes mellitius type2, POA obesity BMI: 35 Persistent nauseated PLAN: [ ] Admit: Medical surgical with tele condition: Guarded Status: Full code IVF: Hep-Lock Antibiotics: Levaquin 250 mg every48 hours. Allergic to penicillin Continue with Lasix 40 mg IV. every12 hours will be change to po fluid re strictions 1.5 L per day daily weight strict I&Os Oxygen supplement to keep O2 sats above 92%. Respiratory to titrate we will do 6 minute walk gram negative urine cultures cont with Levaquin IV Labs cbc, cmp, mag+ Replace electrolytes as needed as per protocol to keep potassium above 4.[address] abd /pelvis today will follow result Supportive measures: DVT ppx, GI ppx all questions answered PT services to eval and treat out of bed to chair. resp to wean off oxygen as tolerated 6 min walk today Supervising MD: Dr. cardenas c/d This document was generated in part using voice recognition software, occasional wrong word or sound alike substitutions may have occurred due to the inherent limitations of voice recognition software. Read the chart carefully and recognize using context, where the substitutions have occurred. Although every effort was made to edit the content, rug layer and typing errors may occur ATTESTATION BY PHYSICIAN I have seen and examined the patient. I reviewed the documentation, medical decision making, and treatment plan as noted by the mid-level provider above. I agree with the findings and plan of care. Aj Cardenas MD, ELIZABETH NP Sep 25, 2024 08:55 AJ CARDENAS MD Sep 25, 2024 17:49
--- NOTE | 2024-09-25 11:45 | NUR ---
Order received and patient evaluated. Patient continues to complain of nausea with dry heaves, only tolerated standing. PT team to progress patient per tolerance. Addendum: 09/25/24 at 1359 by MANE MALIK PT Amended: Links added.
--- NOTE | 2024-09-25 12:06 | HMCIMG ---
CT ABDOMEN/PELVIS W/O CONTRAST INDICATION: Persistent nauseated abd discomfort TECHNIQUE: CT ABDOMEN/PELVIS W/O CONTRAST. Oral contrast was not given. Coronal and sagittal reformats were performed. CT was performed with one or more of the following dose reduction techniques: Automated exposure control, adjustment of the mA and/or kV according to the patient's size, or use of the iterative reconstruction technique. Comparison: None. FINDINGS: The noncontrast nature this study limits evaluation of abdominal viscera. Small bilateral pleural effusions seen. There is cardiomegaly. Liver and gallbladder are within normal limits. The spleen, pancreas, and adrenal glands are within normal limits. There is no hydronephrosis. Air is seen in the urinary bladder which may may represent recent instrumentation versus infection. Diverticulosis coli without evidence of acute diverticulitis. No bowel obstruction identified. Appendix is not clearly visualized limiting evaluation. Correlate clinically. Atherosclerotic changes of the aorta with calcified plaques. Degenerative changes of the spine are seen. A stent is seen in the left common femoral vein. IMPRESSION: 1. Air is seen in the urinary bladder which may may represent recent instrumentation versus infection. 2. Diverticulosis coli without evidence of acute diverticulitis.
[2024-09-25] MEDS ORDERED: LEVO-70 PO ×2 (16:03)
--- NOTE | 2024-09-25 16:12 | DS ---
Discharge Summary Hospital Course Summary: This is a 59-year-old female that was admitted on 09/23/2024 with chief complaints of shortness a breath associated with pedal edema. This has been ongoing for two weeks patient follows Dr. Lombardo has an appointment next week. Patient was started on IV Lasix patient was admitted for CHF exacerbation. 09/24/2024 patient is lying in bed continues on oxygen supplemental2 L patient continues with IV Lasix. Patient denied chest pain we will have PT to get patient out of bed to chair most likely we will test her for 6 minute walk. All questions addressed. 09/25/24 patient is seen and examined. Encouraged patient out of bed to chair as tolerated continues on 2 L we will be on room air and get a 6 minute walk IV diuretics changed to p.o.. Patient denied chest pain palpitation edematous to lower extremities improved. Patient continues with nauseated we will get a CT abdomen and pelvis without contrast. Reviewed CT scan was negative, The patient did not meet home oxygen: 97 % saturation 6 min walk. The patient already has planner internship on last admission on 09/26/[address] Lombardo: Home medications remain the same: advice to avoid fluid overload need to follow fluid restriction and sodium intake. The patient was positive for gram negative UTI: will be discharged on oral anitibiotics. The patient is clinically stable for discharged home with spouse. Procedure(s): REASON: persistient nauseated abd discomfort ORDERING PHYSICIAN: BRAYAN POZO NP PROCEDURE: ABD PEL WO - CT ABDOMEN/PELVIS W/O CONTRAST CT ABDOMEN/PELVIS W/O CONTRAST INDICATION: Persistent nauseated abd discomfort TECHNIQUE: CT ABDOMEN/PELVIS W/O CONTRAST. Oral contrast was not given. Coronal and sagittal reformats were performed. CT was performed with one or more of the following dose reduction techniques: Automated exposure control, adjustment of the mA and/or kV according to the patient's size, or use of the iterative reconstruction technique. Comparison: None. FINDINGS: The noncontrast nature this study limits evaluation of abdominal viscera. Small bilateral pleural effusions seen. There is cardiomegaly. Liver and gallbladder are within normal limits. The spleen, pancreas, and adrenal glands are within normal limits. There is no hydronephrosis. Air is seen in the urinary bladder which may may represent recent instrumentation versus infection. Diverticulosis coli without evidence of acute diverticulitis. No bowel obstruction identified. Appendix is not clearly visualized limiting evaluation. Correlate clinically. Atherosclerotic changes of the aorta with calcified plaques. Degenerative changes of the spine are seen. A stent is seen in the left common femoral vein. IMPRESSION: 1. Air is seen in the urinary bladder which may may represent recent instrumentation versus infection. 2. Diverticulosis coli without evidence of acute diverticulitis. Assessment/Plan: discharged dx's; Acute respiratory failure with hypoxia requiring oxygen supplemental. POA resolved Acute on chronic diastolic heart failure exacerbation with EF 50-55% by 2D echo on 06/22/2024, POA UTI gram negative POA discharged on oral antibiotics Anemia of chronic disease, POA CKD stage IIIA, POA Mild rhabdomyolysis, POA resolved Elevated troponin, most likely secondary to ischemic oxygen demand POA hypertension Hyperlipidemia Ischemic cardiomyopathy History of carotid artery stenosis History of TIA/CVA Diabetes mellitius type2, POA obesity BMI: 35 Persistent nauseated PLAN: [ ] ADMISSION DATE: 09/23/24 DISCHARGE DATE: 09/25/24 DISPOSITION: home patient did not meet home oxygen CONDITION: stable FENCE REPAIRMAN(S): none FOLLOW UP APPOINTMENT(S): as scheduled with planner internship: on 09/26/24 Dr. Lombardo PROCEDURES: none IMAGING (S) report attached to summary : MICROBIOLOGY: report attached to summary; ACTIVITY: ab mayur HOME MEDICATIONS remain the same CHANGES ON HOME MEDICATIONS None NEW MEDICATIONS Levaquin 500 mg po daily for 5 days every 48 hrs. TEACHING: fluid restriction 1.5 liter avoid sodium intake. Emergency instructions: The patient was instructed to present to the nearest Emergency Department or call 911 should their symptoms return or worsen. Home Medications: Active Scripts Levofloxacin (Levofloxacin) 500 Mg Tablet, 500 MG PO q48hrs for 5 Days, #5 TAB Prov:BRAYAN POZO NP 09/25/24 Amlodipine Besylate (Norvasc 5Mg Tab) 5 Mg Tablet, 10 MG PO DAILY, #30 TAB 1 Refill Prov:JONA CAIN 08/09/24 Mupirocin (Mupirocin Ointment) 2 % Oint, 1 APPL TP TID, #2 APPL 0 Refills Prov:IRMA RIOS [employer] TECHNICIAN 06/29/24 Cyanocobalamin (Vitamin B-12) (Vitamin B-12) 1,000 Mcg Tablet, 1000 MCG PO DAILY, #60 TAB Prov:IRMA RIOS [employer] TECHNICIAN 06/29/24 Metoprolol Succinate (Toprol Xl) 50 Mg Tab.er.24h, 50 MG PO DAILY for 30 Days, #30 TAB Prov:BRAYAN POZO SUPERVISOR STITCHING DEPARTMENT 04/02/24 Reported Medications Bumetanide (Bumetanide) 0.5 Mg Tablet, 1 TAB PO DAILY for 30 Days, #30 TAB 0 Refills 09/23/24 Ferrous Fumarate/Folic Acid (Hemocyte-F Tablet) 324 Mg (106 Mg Iron)-1 Mg Tablet, 1 TAB PO DAILY for 30 Days, #30 TAB 0 Refills 08/02/24 Hydralazine HCl (Hydralazine HCl) 100 Mg Tablet, 1 TAB PO TID for 30 Days, #90 TAB 0 Refills 08/02/24 Aspirin (Aspirin) 325 Mg Tablet, 1 TAB PO DAILY 06/21/24 Atorvastatin Calcium (Atorvastatin Calcium) 40 Mg Tablet, 1 TAB PO DAILY 06/21/24 Nitroglycerin (Nitroglycerin) 0.4 Mg Tab.subl, 1 TAB SL AD PRN for CHEST PAIN, #25 TAB 0 Refills 1st sign of attack; may repeat every 5 mins; if pain persists after 3 in 15 min, medical attention is recommended 06/14/24 Isosorbide Mononitrate (Isosorbide Mononitrate) 10 Mg Tablet, 1 TAB PO BID for 30 Days, #60 TAB 0 Refills 06/10/24 Albuterol Sulfate (Ventolin Hfa) 90 Mcg Hfa.aer.ad, 2 PUFF IH Q4HPRN PRN for wheezing for 30 Days, #18 GM 0 Refills 06/10/24 Clonidine HCl (Clonidine HCl) 0.1 Mg Tablet, 0.1 MG PO AM, TAB 03/30/24 Gabapentin (Gabapentin) 100 Mg Capsule, 300 MG PO TID, CAP 03/30/24 Clopidogrel Bisulfate (Clopidogrel) 75 Mg Tablet, 75 MG PO DAILY, TAB 02/16/24 Omeprazole (Omeprazole) 20 Mg Capsule.dr, 20 MG PO DAILY, CAP 02/16/24 Discontinued Scripts Bumetanide (Bumetanide) 1 Mg Tablet, 1 MG PO DAILY, #60 TAB Prov:IRMA RIOS [employer] TECHNICIAN 06/29/24 New Medications: Levofloxacin (Levofloxacin) 500 Mg Tablet 500 MG PO q48hrs for 5 Days, #5 TAB Continued Medications: Albuterol Sulfate (Ventolin Hfa) 90 Mcg Hfa.aer.ad 2 PUFF IH Q4HPRN PRN for wheezing for 30 Days, #18 GM 0 Refills Amlodipine Besylate (Norvasc 5Mg Tab) 5 Mg Tablet 10 MG PO DAILY, #30 TAB 1 Refill Aspirin (Aspirin) 325 Mg Tablet 1 TAB PO DAILY Atorvastatin Calcium (Atorvastatin Calcium) 40 Mg Tablet 1 TAB PO DAILY Bumetanide (Bumetanide) 0.5 Mg Tablet 1 TAB PO DAILY for 30 Days, #30 TAB 0 Refills Clonidine HCl (Clonidine HCl) 0.1 Mg Tablet 0.1 MG PO AM, TAB Clopidogrel Bisulfate (Clopidogrel) 75 Mg Tablet 75 MG PO DAILY, TAB Cyanocobalamin (Vitamin B-12) (Vitamin B-12) 1,000 Mcg Tablet 1000 MCG PO DAILY, #60 TAB Ferrous Fumarate/Folic Acid (Hemocyte-F Tablet) 324 Mg (106 Mg Iron)-1 Mg Tablet 1 TAB PO DAILY for 30 Days, #30 TAB 0 Refills Gabapentin (Gabapentin) 100 Mg Capsule 300 MG PO TID, CAP Hydralazine HCl (Hydralazine HCl) 100 Mg Tablet 1 TAB PO TID for 30 Days, #90 TAB 0 Refills Isosorbide Mononitrate (Isosorbide Mononitrate) 10 Mg Tablet 1 TAB PO BID for 30 Days, #60 TAB 0 Refills Metoprolol Succinate (Toprol Xl) 50 Mg Tab.er.24h 50 MG PO DAILY for 30 Days, #30 TAB Mupirocin (Mupirocin Ointment) 2 % Oint 1 APPL TP TID, #2 APPL 0 Refills Nitroglycerin (Nitroglycerin) 0.4 Mg Tab.subl 1 TAB SL AD PRN for CHEST PAIN, #25 TAB 0 Refills 1st sign of attack; may repeat every 5 mins; if pain persists after 3 in 15 min, medical attention is recommended Omeprazole (Omeprazole) 20 Mg Capsule. 20 MG PO DAILY, CAP Time spent arranging discharge: 31-60 minutes ATTESTATION BY PHYSICIAN I have seen and examined the patient. I reviewed the documentation, medical decision making, and treatment plan as noted by the mid-level provider above. I agree with the findings and plan of care. Concepcion Cardenas MD, ELIZABETH NP Sep 25, 2024 16:12 CONCEPCION CARDENAS MD Sep 25, 2024 17:50
--- NOTE | 2024-09-25 16:40 | NUR ---
patient alert and oriented (vision problems), with at bedside being discharged home. Patient educated to follow up with PCP and Dr. Lombardo tomorrow at 1300. Educated to resume all home meds and pickler helper prescription from pharmacy. Medications explained to the patient, including side effects. IV removed without complications. All questions answered, patient and spouse verbalized complete understanding. IV removed without complication. Patient gathered all belongings and took with her at discharge.
[2024-09-25] MEDS ORDERED: furoSEMIDE 40 MG TABLET PO SCH (21:00)
== END 2024-09-25 16:50 | disposition home or self-care (01) | DRG 291 ==
LOC: EDH 01:42 → EDHIP 01:43 → 2DH 09-24 08:11
PROVIDERS: ADMIT Internal Medicine; ATTEND Internal Medicine
DX: I13.0 Hypertensive heart and chronic kidney disease with heart failure and stage 1 through stage 4 chronic kidney disease, or unspecified chronic kidney disease (principal); I50.33 Acute on chronic diastolic (congestive) heart failure; J96.01 Acute respiratory failure with hypoxia; N39.0 Urinary tract infection, site not specified; I16.1 Hypertensive emergency; M62.82 Rhabdomyolysis; I25.10 Atherosclerotic heart disease of native coronary artery without angina pectoris; N18.31 Chronic kidney disease, stage 3a; E11.22 Type 2 diabetes mellitus with diabetic chronic kidney disease; E66.01 Morbid (severe) obesity due to excess calories; E78.00 Pure hypercholesterolemia, unspecified; I25.5 Ischemic cardiomyopathy; B96.89 Other specified bacterial agents as the cause of diseases classified elsewhere; E11.40 Type 2 diabetes mellitus with diabetic neuropathy, unspecified; Z95.5 Presence of coronary angioplasty implant and graft; Z90.710 Acquired absence of both cervix and uterus; Z88.0 Allergy status to penicillin; Z86.73 Personal history of transient ischemic attack (TIA), and cerebral infarction without residual deficits; Z79.82 Long term (current) use of aspirin; Z68.35 Body mass index [BMI] 35.0-35.9, adult; Z51.5 Encounter for palliative care
CPT/HCPCS: 36415; 71045; 74176; 80048; 80053; 81001; 82550; 82948; 83036; 83735; 83880; 84100; 84484; 85025; 87086; 87186; 93005; 96374; 96375; 99285; G0378; J0360; J1644; J1815; J1940; J1956; J2270; J2405

== ENCOUNTER 2025-02-17 07:56 | Inpatient (IN) | payer MEDICAID ==
[~2025-02-17] VITALS: Ht 175.3 cm; Wt 87.1 kg
[~2025-02-17 07:56] MED LIST changes: -AMLO5TAB4 PO; +ASPI-1005 PO; -ASPI-1026 PO; -ASPI-1443 PO; -ATOR-2 PO; +ATOR40TA69 PO; -ATOR40TA71 PO; +BACL10TA PO; -BUME1TAB6 PO; -CYAN-52 PO; +EMPA10TA PO; +ERGO500093 PO; -FERR1TAB54 PO; -GABA-529 PO; -HYDR100T15 PO; -ISOS10TA96 PO; +ISOS30TA92 PO; +LEVO-70 PO; -LEVO250T75 PO; +LOSA-417 PO; +METO-408 PO; -METO50TA9 PO; +MONT-39 PO; -MUPI22OI2 TP; -NITR0.4T50 SL; -OMEP20CA12 PO; -SEMA2PEN SQ; +TRAZ-187 PO
--- NOTE | 2025-02-17 08:10 | NUR ---
PATIENT DOWNGRADED TO ER PATIENT BY DR WARNER PATIENT DENIES HITTING HER HEAD.
--- NOTE | 2025-02-17 08:10 | ERN ---
General Chief Complaint: Mechanical Fall Stated Complaint: FALL Time Seen by MD: 08:00 Source: patient History of Present Illness Initial Comments Patient is a 59-year-old female coming in after she had a fall. Patient states she slid off her chair hitting herself in the lower back region. She states he did not hit herself in the head. Allergies: Coded Allergies: Penicillins (Unverified Allergy, Severe, hives, 01/19/14) ceftriaxone (Unverified Allergy, Severe, hives, 01/19/14) Home Meds Active Scripts Atorvastatin Calcium (LIPITOR) 40 Mg Tablet, 1 TAB PO HS for 30 Days, #30 TAB 0 Refills Prov:LATA REINOSOP 01/25/25 Losartan Potassium (Cozaar) 25 Mg Tablet, 25 MG PO DAILY, #30 TAB Prov:NISHA RAMEY 01/25/25 Metoprolol Succinate (Metoprolol Succinate) 25 Mg Tab.er.24h, 1 TAB PO BID for 30 Days, #30 TAB 0 Refills Prov:NISHA RAMEY 01/25/25 Reported Medications Furosemide (Furosemide) 40 Mg Tablet, 1 TAB PO BID for 30 Days, #30 TAB 0 Refills 02/17/25 Gabapentin (Neurontin) 300 Mg Capsule, 1 CAP PO TID for 30 Days, #90 CAP 0 Refills 02/17/25 Trazodone HCl (Trazodone HCl) 150 Mg Tablet, 1 TAB PO HS for 30 Days, #30 TAB 0 Refills 02/17/25 Nitroglycerin (Nitroglycerin) 0.4 Mg Tab.subl, 1 TAB SL AD for chest pain, #25 TAB 0 Refills 1st sign of attack; may repeat every 5 mins; if pain persists after 3 in 15 min, medical attention is recommended 02/17/25 Albuterol Sulfate (Ventolin Hfa) 90 Mcg Hfa.aer.ad, 2 PUFF IH Q4HPRN PRN for wheezing for 30 Days, #18 GM 0 Refills 01/16/25 Montelukast Sodium (Montelukast Sodium) 10 Mg Tablet, 1 TAB PO DAILY for 30 Days, #30 TAB 0 Refills 01/16/25 Clopidogrel Bisulfate (Clopidogrel) 75 Mg Tablet, 1 TAB PO DAILY for 30 Days, #30 TAB 0 Refills 01/16/25 Empagliflozin (Jardiance) 10 Mg Tablet, 1 TAB PO DAILY for 30 Days, #30 TAB 0 Refills 01/16/25 Isosorbide Mononitrate (Isosorbide Mononitrate ER) 30 Mg Tab.er.24h, 30 MG PO DAILY, TAB 01/16/25 Hydralazine HCl (Hydralazine HCl) 50 Mg Tablet, 1 TAB PO BID for 30 Days, #60 TAB 0 Refills 01/16/25 Clonidine HCl (Clonidine HCl) 0.1 Mg Tablet, 0.1 MG PO BID, TAB 01/16/25 Ergocalciferol (Vitamin D2) (Vitamin D2) 1,250 Mcg (35576 Unit) Capsule, 1 CAP PO QWEEK for 28 Days, #4 CAP 0 Refills 01/16/25 Aspirin (ASPIRIN 81MG CHEW TAB) 81 Mg Tab.chew, 81 MG PO DAILY, TAB.CHEW 01/16/25 Discontinued Reported Medications Baclofen (Baclofen) 10 Mg Tablet, 10 MG PO HS, TAB 01/16/25 Trazodone HCl (Trazodone HCl) 100 Mg Tablet, 1 TAB PO HS for 30 Days, #30 TAB 0 Refills 01/16/25 Discontinued Scripts Levofloxacin (Levofloxacin) 500 Mg Tablet, 1 TAB PO DAILY for 5 Days, #5 TAB 0 Refills Prov:LATA REINOSO MALTSTER 01/25/25 Past Medical History Past Medical History: CHF, Diabetes-Type II, High Cholesterol, Hypertension, Other Medical History Other: BLIND Past Surgical History: Hysterectomy, Other Surgical History Other: CARDIAC STENTS, LEG STENTS Family History Family History: Negative Social History Social History: Negative, Lives with family Female( History) History: Not Applicable ROS Dictation CONSTITUTIONAL: No chills, no fever, no weakness, no diaphoresis, no malaise. HEAD/FACE: No signs of trauma. EENT: No eye pain, no blurred vision, no tearing, no double vision, no ear pain, no ear discharge, no nose pain, no nasal congestion, no throat pain, no throat swelling, no mouth pain. RESPIRATORY: No cough, no orthopnea, no SOB, no stridor, no wheezing. CARDIOVASCULAR: No chest pain, no edema, no palpitations, no syncope. GASTROINTESTINAL/ABDOMINAL: No abdominal pain, no constipation, no diarrhea, no nausea, no vomiting. GENITOURINARY: No abnormal discharge, no dysuria, no frequent urination, no hematuria. No complaints of pain in the genitals. MUSCULOSKELETAL: back pain, no gout, no joint pain, no joint swelling, no muscle pain, no muscle stiffness, no neck pain. INTEGUMENTARY: No change in color, no change in hair/nails, no dryness, no lesion, no lumps, no rash. NEUROLOGICAL/PSYCH: No anxiety, not depressed, no emotional problem, no headache, no numbness, no pre-existing deficit, no history of seizures, no tremors, no weakness. HEMATOLOGIC/LYMPHATIC: Not anemic, no history of blood clots, no apparent bleeding, no bruising, glands not swollen. All Systems Negative, Except as Noted. Physical Exam Physical Exam Dictation VITAL SIGNS: Reviewed. GENERAL APPEARANCE: Alert, oriented x3, no acute distress, obese. HEAD AND FACE: Non-traumatic. EYES: PERRL, pink conjunctivas, eyelid no trauma, anterior chamber clear. EARS: Pinnas intact and no signs of trauma or erythema. Ear canals clear and no discharge. TMs no erythema. NOSE: No discharge, no bleeding. OROPHARYNX: Mouth normal, teeth no caries, tongue pink. Pharynx clear, no erythema. Tonsils no exudates, no abscesses noted. Mucous membrane moist. NECK: Supple, non-tender, no thyromegaly, no masses, no JVD, no bruits. BREAST: Deferred. CHEST: No tenderness, no crepitus, no paradoxical movement, no retractions. LUNGS: Clear, well-ventilated, symmetric, no rales, no wheezing, no rhonchi, no stridor, good breath sounds bilaterally. HEART: Regular rate, regular rhythm, no murmur, no gallops. VASCULAR: No peripheral edema. ABDOMEN: Soft, positive bowel sounds, nondistended, no guarding, nontender, no rebound, no masses no hepatomegaly, no splenomegaly, no Ferraro's sign, no hernias. RECTAL: Deferred. GENITAL: Deferred. NEUROLOGICAL: Normal speech, gross motor function intact, gross sensory function intact. MUSCULOSKELETAL: Neck nontender, full range of motion, back nontender, full range of motion. EXTREMITIES: Nontender, full range of motion. SKIN: Color pink, dry, no turgor, no rash, no lacerations, lower back abrasion, no contusions. LYMPHATICS: Deferred. Results Laboratory and Microbiology Lab and Micro Result Laboratory Tests Test 02/17/25 08:00 02/17/25 08:05 02/17/25 09:04 02/17/25 09:09 Influenza Type A Antigen Negative For Type A Influenza Type B Antigen Negative For Type B SARS-CoV-2, RNA, NAAT POSITIVE SARS CoV-2 White Blood Count 7.1 K/uL (4.8-10.8) Red Blood Count 3.64 MIL/uL (4.00-5.50) L Hemoglobin 12.3 g/dL (12.0-16.0) Hematocrit 37.4 % (36-48) Mean Corpuscular Volume 102.7 fL (79-99) H Mean Corpuscular Hemoglobin 33.8 pg (27.0-33.0) H Mean Corpuscular Hemoglobin Concent 32.9 g/dL (32.0-36.0) Red Cell Distribution Width 12.8 % (11.0-15.5) Platelet Count 208 K/uL (130-400) Mean Platelet Volume 9.5 fL (7.5-10.5) Immature Granulocyte % (Auto) 0.8 % (0-1) Neutrophils (%) (Auto) 81.8 % (40.0-77.0) H Lymphocytes (%) (Auto) 7.8 % (21.0-51.0) L Monocytes (%) (Auto) 9.0 % (3.0-13.0) Eosinophils (%) (Auto) 0.3 % (0.0-8.0) Basophils (%) (Auto) 0.3 % (0.0-5.0) Neutrophils # (Auto) 5.8 K/uL (1.8-7.7) Lymphocytes # (Auto) 0.6 K/uL (1.0-4.8) L Monocytes # (Auto) 0.6 K/uL (0.1-1.0) Eosinophils # (Auto) 0.02 K/uL (0.00-0.70) Basophils # (Auto) 0.02 K/uL (0.00-0.20) Absolute Immature Granulocyte (auto 0.06 K/uL (0-1) Nucleated Red Blood Cells 0.0 % (0.0-0.19) White Cell Morphology Comment See comments Sodium Level 134 mmol/L (136-145) L Potassium Level 5.0 mmol/L (3.5-5.1) Chloride Level 99 mmol/L (101-111) L Carbon Dioxide Level 29 mmol/L (21-32) Blood Urea Nitrogen 39 mg/dL (7-18) H Creatinine 1.6 mg/dL (0.5-1.0) H Glomerular Filtration Rate Calc 37 mL/min (>90) Random Glucose 257 mg/dL (70-105) H Total Calcium 8.8 mg/dL (8.5-10.1) Total Creatine Kinase 69 U/L (21-232) # Troponin I High Sensitivity 351 ng/L (4-50) *H 399 ng/L (4-50) *H Urine Color LIGHT-YELLOW (YELLOW) Urine Appearance CLOUDY (CLEAR) H Urine pH 6.0 (5.0-8.0) Urine Specific [place] 1.021 (1.001-1.031) Urine Protein 300 mg/dL (NEGATIVE) H Urine Glucose (UA) >=1000 mg/dL (NEGATIVE) H Urine Ketones NEGATIVE mg/dL (NEGATIVE) Urine Occult Blood MODERATE (NEGATIVE) H Urine Nitrate 2+ (NEGATIVE) H Urine Bilirubin NEGATIVE mg/dL (NEGATIVE) Urine Urobilinogen 0.2 mg/dL (0.2-1.0) Urine Leukocyte Esterase NEGATIVE Gopi/uL Urine RBC 11-25 /HPF (0-1) H Urine WBC 2-5 /HPF (0-1) H Urine Squamous Epithelial Cells RARE /HPF (0-2) Urine Bacteria MANY /HPF (None Seen) Labs Reviewed?: Yes EKG/XRAY/US/CT/MRI X-RAY Comment 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 CLINICAL HISTORY: cp COMPARISON: Radiograph dated November 27, 2024 FINDINGS: LUNGS: There is no mass, infiltrate, or acute pulmonary abnormality. PLEURAL SPACES: No evidence of pleural effusion or pneumothorax. MEDIASTINUM: Stable cardiomegaly. Pulmonary vessels and interstitial markings are within normal limits. BONES: No acute osseous abnormality. IMPRESSION: No acute cardiopulmonary pathology is evident. /[facility] DICTATED BY: MEETA BRADSHAW Jr., MD DATE: 02/17/25 100 ELECTRONICALLY SIGNED BY: MEETA BRADSHAW Jr., MD DATE: 02/17/[address] head without contrast-no CT evidence of acute intracranial process MDM MDM: Differential diagnosis: Fall, ACS, NSTEMI, Rationale: Tests considered and ordered secondary to shared decision making include: Previous outside records reviewed: Old ER visits. Risk of complication and/or morbidity or mortality of patient management: None Medications-Per medication reconciliation Need for hospitalization: Patient does meet criteria for hospitalization. Need for emergency major/minor surgery: No There are no social concerns with this patient. Prescription drug management Prescriptions will include symptomatic care Patient's prior external medical records from other ER visits were reviewed by me as indicated. Prior testing and results from previous visits were reviewed. Prior tests were taken into account with medical decision making and resource utilization, independent historian/historians were used to obtain complete medical history. I independently interpreted the test that were performed, results were reviewed by me and considered findings on radiology if ordered. Medical management and examination interpretation discussions were had by me with other qualified healthcare professionals as indicated for the patient's care. Patient will be admitted under the care of hospitalist group for ongoing management. ED Course Orders Procedure Category Date Status Time Cbc With Differential LAB 02/17/25 Complete 08:00 Chest 1vw RAD 02/17/25 Resulted 08:00 Creatine Kinase, Total LAB 02/17/25 Complete 08:00 Troponin I High LAB 02/17/25 Complete Sensitivity 08:00 Urinalysis Profile LAB 02/17/25 Complete 08:00 Basic Metabolic Panel LAB 02/17/25 Complete 08:00 Covid Rna Naat LAB 02/17/25 Complete 08:00 Influenza Type A & B, LAB 02/17/25 Complete Rapid 08:00 Acetaminophen 500mg PHA 02/17/25 Complete Tab (Tylenol 500mg T 09:00 Troponin I High LAB 02/17/25 Complete Sensitivity 08:50 Ct Head/Brain W/O CT 02/17/25 Taken Contrast 08:54 Culture Urine LINSEY 02/17/25 In Process 10:18 Tramadol Hcl (Ultram) PHA 02/17/25 Complete 13:30 Aspirin 81mg Chew Tab PHA 02/18/25 In Process (Aspirin 81mg Chew 09:00 Levofloxacin 500 PHA 02/17/25 In Process Mg/D5w 100 Ml 15:00 Admit Orders ADM 02/17/25 Transmitted 15:50 Hepatic Function Panel LAB 02/17/25 Logged 15:53 Cardiac Panel LAB 02/17/25 Logged 15:53 Gi Soft/[place] Diet DIET 02/17/25 Transmitted Dinner B-Type Natriuretic LAB 02/17/25 Logged Peptide 15:53 Magnesium LAB 02/17/25 Logged 15:53 Erythrocyte LAB 02/17/25 Logged Sedimentation Rate 15:53 Crp Quantitative LAB 02/17/25 Logged 15:53 Procalcitonin LAB 02/17/25 Logged 15:53 Lactate Dehydrogenase LAB 02/17/25 Logged 15:53 Ferritin LAB 02/17/25 Logged 15:53 D-Dimer LAB 02/17/25 Logged 15:53 Initiate JEREMY 02/17/25 In Process Hyperglycemia Protoco 15:53 Insulin Regular, PHA 02/17/25 Logged Human 3ml (Humulin R 16:30 Ct Lumbar Spine W/O CT 02/17/25 Logged Contrast 15:53 Fall Precautions CPOE 02/17/25 Transmitted 15:57 Aspiration Precautions CPOE 02/17/25 Transmitted 15:57 Telemetry Monitoring CPOE 02/17/25 Transmitted 15:57 Elevate Hob At 30 CPOE 02/17/25 Transmitted Degrees 15:57 Cardiology Consult CONPHYSVC 02/17/25 Transmitted 15:57 Pulmonology Consult CONPHYSVC 02/17/25 Transmitted 15:57 Orthostatic Vital CPOE 02/17/25 Transmitted Signs 15:57 Current Medications Medications (Trade) Dose Ordered Sig/Rubi Route PRN Reason Start Time Stop Time Status Last Admin Dose Admin Acetaminophen (TYLenol 500MG TAB) 1,000 mg ONCE ONCE PO 02/17/25 09:00 02/17/25 09:01 DC 02/17/25 08:58 Aspirin (Aspirin 81mg Chew Tab) 81 mg DAILY PO 02/18/25 09:00 03/20/25 08:59 Insulin Human Regular (humuLIN R 100 UNIT/ML 3ML) INSULIN SLIDING SCAL... ACHS SQ 02/17/25 16:30 03/19/25 16:29 UNV Levofloxacin/ Dextrose 100 ml @ 100 mls/hr Q24H IV 02/17/25 15:00 02/27/25 14:59 Tramadol HCl (UltRAM) 50 mg ONCE ONCE PO 02/17/25 13:30 02/17/25 13:31 DC 02/17/25 13:45 Vital Signs Date Time Temp Pulse Resp B/P (MAP) Pulse Ox O2 Delivery O2 Flow Rate FiO2 02/17/25 14:47 100.6 65 18 100/54 97 Nasal Cannula* 2 02/17/25 13:50 100.6 77 18 76/48 97 Nasal Cannula* 2 02/17/25 11:13 100.6 77 17 111/59 97 Nasal Cannula* 2 02/17/25 10:00 100.6 80 17 160/86 99 Nasal Cannula* 2 02/17/25 09:00 100.6 89 16 191/88 99 Nasal Cannula* 2 02/17/25 08:58 100.6 02/17/25 08:02 100.6 91 16 155/85 98 Nasal Cannula* 2 02/17/25 07:57 100.6 93 14 155/85 97 Nasal Cannula 2.0 DX & DISP Disposition: Inpatient Decision to Admit Time: 15:01 Departure Impression: Primary Impression: COVID-19 Additional Impressions: Accident due to mechanical fall without injury, NSTEMI (non-ST elevated myocardial infarction) Condition: Stable Referrals: SELF,REFERRAL (PCP) LIYAH BILL MD Feb 17, 2025 08:10
[2025-02-17 08:13] LABS: IMMATURE GRANULOCYTE ABSOLUTE 0.06 K/uL (0-1); NUCLEATED RED BLOOD CELLS 0.0 % (0.0-0.19); PLATELET COUNT (AUTO) 208 K/uL (130-400); RED BLOOD CELL COUNT(AUTO) 3.64 MIL/uL (4.00-5.50); RED CELL DISTRIBUTION WIDTH 12.8 % (11.0-15.5); WHITE BLOOD COUNT (AUTO) 7.1 K/uL (4.8-10.8)
[2025-02-17 08:28] LABS: CREATINE KINASE, TOTAL 69.0 U/L (21-232); CREATININE 1.6 mg/dL (0.5-1.0); GLOMERULAR FILTR. RATE CALC 37.0 mL/min (>90); GLUCOSE,RANDOM 257.0 mg/dL (70-105); SODIUM SERUM 134.0 mmol/L (136-145); UREA NITROGEN, BLOOD 39.0 mg/dL (7-18)
[2025-02-17 08:58] VITALS: TEMP 100.6
[2025-02-17 09:00] LABS: INFLUENZA TYPE A Negative For Type A (NEGATIVE); INFLUENZA TYPE B Negative For Type B (NEGATIVE)
--- NOTE | 2025-02-17 09:10 | HMCIMG ---
EXAM: CR Chest, 1 View. CLINICAL HISTORY: cp COMPARISON: Radiograph dated November 27, 2024 FINDINGS: LUNGS: There is no mass, infiltrate, or acute pulmonary abnormality. PLEURAL SPACES: No evidence of pleural effusion or pneumothorax. MEDIASTINUM: Stable cardiomegaly. Pulmonary vessels and interstitial markings are within normal limits. BONES: No acute osseous abnormality. IMPRESSION: No acute cardiopulmonary pathology is evident. /[place]
[2025-02-17 09:17] LABS: SARS-CoV-2, RNA, NAAT POSITIVE SARS CoV-2 (NEGATIVE)
[2025-02-17 09:42] LABS: APPEARANCE,URINE CLOUDY (CLEAR); GLUCOSE, URINE (UA) >=1000 mg/dL (NEGATIVE); LEUKOCYTE ESTERASE ,URINE NEGATIVE Leu/uL (NEGATIVE); NITRATE,URINE 2+ (NEGATIVE); OCCULT BLOOD,URINE MODERATE (NEGATIVE)
[2025-02-17] MEDS ORDERED: GABA300C PO (10:00)
[2025-02-17] MEDS ORDERED: FURO40TA5 PO (10:00)
[2025-02-17] MEDS ORDERED: NITR0.4T50 SL (10:00)
[2025-02-17] MEDS ORDERED: TRAZ150T79 PO (10:00)
--- NOTE | 2025-02-17 10:00 | NUR ---
PT TO CT
[2025-02-17 10:18] LABS: ADD UA MICROSCOPIC YES
[2025-02-17 10:29] LABS: SQUAMOUS EPITHELIAL CELL,UR RARE /HPF (0-2)
[2025-02-17] MEDS ORDERED: ALBUTEROL 0.083% 2.5 MG/3 ML INH IH PRN (16:30)
--- NOTE | 2025-02-17 16:32 | EKG ---
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
[2025-02-17 17:15] LABS: ASPARTATE AMINOTRANSFERASE 17.0 U/L (10-37); CREATINE KINASE, TOTAL 70.0 U/L (21-232); LACTATE DEHYDROGENASE 185.0 U/L (81-234); TOTAL PROTEIN, SERUM 5.3 g/dL (6.0-8.3)
--- NOTE | 2025-02-17 17:20 | HMCIMG ---
EXAM: CT Cervical Spine Without IV contrast. CLINICAL HISTORY: neck pain, s/p fall TECHNIQUE: Axial computed tomography images of the cervical spine without intravenous contrast. Sagittal and coronal reformatted images were generated. COMPARISON: None provided. FINDINGS: ALIGNMENT: Bony alignment is anatomic. DEGENERATIVE CHANGES: Mild multilevel degenerative changes. SOFT TISSUES: The prevertebral soft tissues are within normal limits. BONES: No fracture in the cervical spine. IMPRESSION: 1. No fracture or dislocation in the cervical spine. 2. Mild multilevel degenerative changes. /[place]
--- NOTE | 2025-02-17 17:44 | HMCIMG ---
OF THE BRAIN WITHOUT CONTRAST CLINICAL INDICATION: Fall TECHNIQUE: Multiple contiguous axial CT images were obtained through the brain without the administration of intravenous contrast. Coronal and sagittal reconstructions were also obtained. COMPARISON: None available FINDINGS: The ventricular system and cortical sulci demonstrate a normal size and configuration for the patient???s age. There are no intra- or extra-axial collections, mass effect, or midline shift. The basal cisterns are patent. The wilder-white matter differentiation is preserved. The midline structures and cervicomedullary junction are unremarkable. There is no evidence of acute intracranial hemorrhage or areas of acute infarction. Vascular calcification is present. No fractures are identified. The calvarium is unremarkable in appearance. No suspicious lytic or sclerotic osseous lesions are seen. The visualized portions of the sinuses are well aerated. The mastoid air cells are well pneumatized and well aerated. The visualized orbital structures are unremarkable in appearance. IMPRESSION: No CT evidence of an acute intracranial process. /[place]
--- NOTE | 2025-02-17 18:06 | HMCIMG ---
EXAM: CT Lumbar Spine Without IV Contrast CLINICAL HISTORY: Fall today. Acute and chronic low back pain. TECHNIQUE: Spiral axial CT images through the lumbar spine were acquired, reconstructed in axial and sagittal projections, and imaged using soft tissue and bone algorithms. Reformatted/MPR images were performed. CT scan is done according to ALARA (As Low as Reasonably Achievable). CONTRAST: None. COMPARISON: Radiograph dated 07/11/14. FINDINGS: No acute fracture. Normal lordotic curvature. Mild multilevel spondylosis is evident by small marginal osteophytes and facet joint arthropathy. Normal vertebral body and disc heights. Normal bone density. Stent noted across left common iliac and external iliac veins. Multiple colonic diverticula noted. No evidence of diverticulitis. Moderate constipation. Bilateral perinephric fat stranding (right greater than left) that may reflect renal parenchymal disease, recommend correlation with laboratory parameters. Individual spinal levels are described as follows: T12-L1: No disc bulge or herniation. No neural foraminal, lateral recess or spinal canal stenosis. L1-L2: No disc bulge or herniation. No neural foraminal, lateral recess or spinal canal stenosis. L2-L3: No disc bulge or herniation. No neural foraminal, lateral recess or spinal canal stenosis. L3-L4: No disc bulge or herniation. No neural foraminal, lateral recess or spinal canal stenosis. L4-L5: 3 mm disc osteophyte complex bulge and facet joint arthropathy causing mild indentation on the anterior thecal sac and mild bilateral foraminal narrowing. No lateral recess stenosis. L5-S1: 2 mm disc osteophyte complex bulge and facet joint arthropathy causing mild indentation on the anterior thecal sac and mild bilateral foraminal narrowing. No lateral recess stenosis. IMPRESSIONS: No acute fracture or subluxation. Redemonstrated mild multilevel spondylosis. Mild indentation on the anterior thecal sac and mild bilateral foraminal narrowing at the L4-L5 and L5-S1 levels. Stent across left common iliac and external iliac veins. Multiple colonic diverticula. No evidence of diverticulitis. Moderate constipation. Bilateral perinephric fat stranding may reflect renal parenchymal disease, recommend correlation with laboratory parameters. /[place]
[2025-02-17 18:09] LABS: ERYTHROCYTE SEDIMENTATION RATE 55 MM/HR (0-30)
[2025-02-17 20:13] VITALS: PULSE 68; RESP 18; O2SAT 100
[2025-02-17] MEDS: BUDESONIDE 0.5 MG/2 ML INH IH SCH (20:13)
--- NOTE | 2025-02-17 20:30 | HP ---
[facility] HISTORY AND PHYSICAL Date of Service: Feb 17, 2025 Time of Service: 20:12 HISTORY OF PRESENT ILLNESS: Date of service: 02/17/2025, patient was seen in ER room 20 59-year-old female with underlying history of coronary artery disease with prior history of PCI (with MELANY x2 to proximal and mid left circumflex, PCI to mid to distal LAD, PCI to distal RCA), CKD stage 3, orthostatic hypotension, hyperlipidemia, hypertension, history of carotid artery stenosis status post right carotid endarterectomy in 12/2023 and left carotid stent placement in 04/2024, history of TIA/CVA (2023), obstructive sleep apnea, type 2 diabetes mellitus, history of anemia, history of recurrent UTIs, obesity who presented to the ER for further evaluation after patient sustained a fall. Patient states that she felt disoriented today while she was using the bedside commode and slid off the chair hitting the back of the head as well as the lower back. Patient denies any syncope. She has been feeling ill over the last two days with rhinorrhea, congestion. Denies any shortness of breath or pleurisy. Reports being exposed to COVID in the family. Patient denies any chest pain. [place] [facility] [place] significant dysautonomia and patient does have underlying history of significant orthostatic hypotension. She is followed by Dr. Lombardo with Cardiology as outpatient and she has underlying history of ischemic cardiomyopathy and multivessel coronary artery disease. Patient is also followed by Dr. Mcconnell as well for management of dysautonomia. On presentation to the hospital, patient was noted to be febrile with T-max of 100.6 F, heart rate of 93, blood pressure of 155/85 and she was needing 2 L of O2 supplementation by nasal cannula. Chest x-ray showed no significant infiltrates. Labs on presentation showed WBC count of 7100, hemoglobin of 12.3, MCV of 102.7. BMP on presentation showed sodium of 134, potassium of 5.0, BUN of 39, creatinine 1.6, high sensitivity cardiac troponin of 351 and patient was noted to be SARS COVID 19 positive. Patient will be admitted for further treatment and management of acute hypoxemic respiratory failure. Patient is currently requiring 2 L of O2 supplementation by nasal cannula. Patient will be started on IV dexamethasone for management of SARs COVID 19 infection. Troponin will be cycled to rule out active ACS. We will monitor this patient closely given high-risk comorbidities. REVIEW OF SYSTEMS CONSTITUTIONAL: Fall today, reports having history of orthostasis NEUROLOGICAL: Denies headache, amaurosis fugax, motor weakness, sensory deficit, vertigo/spinning sensation, or tremors. ENT: Rhinorrhea, congestion CARDIOVASCULAR: Denies any exertional angina, dyspnea on exertion, orthopnea, paroxysmal nocturnal dyspnea, palpitations, life-threatening arrhythmias, claudication. PULMONARY: Denies any shortness of breath, cough, phlegm/sputum, hemoptysis, pleuritic chest pain. SLEEP: Denies morning headaches, daytime somnolence or napping. Denies difficulty falling asleep, staying asleep, waking from sleep. Denies knowledge of snoring. GASTROINTESTINAL: Denies any type of dysphagia to either liquids or solids. Denies nausea, vomiting, pyrosis, early satiety, abdominal pain, diarrhea, constipation, or changes in stool consistency or caliber. Denies coffee-ground emesis, hematemesis, hematochezia, or melanotic stools. GENITOURINARY: Denies frequency, urgency, nocturia, hematuria or incontinence (Storage/Irritative symptoms.) Low urinary stream, straining to void, urinary intermittency or hesitancy, splitting of the voiding stream, terminal dribbling. ENDOCRINOLOGIC: Denies polyuria, polydipsia, polyphagia or heat/cold intolerances. HEMATOLOGIC: Denies thrombophilia/previous clots, or coagulopathy/bleeding disorders. ONCOLOGIC: Denies personal history of malignancy. DERMATOLOGIC: Denies rashes or pruritus. PSYCHIATRIC: Denies any suicidal or homicidal ideation. Denies hallucinations. 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] PAST SURGICAL HISTORY: [Loop recorder, left femoral stent, history of cardiac catheterization and mult iple prior PCIs, appendectomy, LEEP procedure, right carotid endarterectomy December 2023, left carotid artery stenting in April 2024 and colonoscopy ] PAST SOCIAL HISTORY: [Patient denies alcohol tobacco and recreational drug use , needs assistance with IADLs] FAMILY HISTORY: [Cancer, hypertension, diabetes and stroke] ] Coded Allergies: Penicillins (Unverified Allergy, Severe, hives, 01/19/14) ceftriaxone (Unverified Allergy, Severe, hives, 01/19/14) PHYSICAL EXAM GENERAL APPEARANCE: The patient is awake, alert, currently on 2 L of O2 supplementation by nasal cannula NEUROLOGICAL: Cranial nerves II-XII grossly intact. Neurological examination is nonfocal HEENT: Face is symmetric. Pupils are equal and reactive. Extraocular movements are intact. NECK: Supple. No JVD. No thyromegaly. No submental, submandibular, pre- /postauricular, occipital or supraclavicular lymphadenopathy. CHEST: Normal chest expansion. No Telemetry. LUNGS: Mild crackles noted at bilateral lung bases CARDIOVASCULAR: Regular. S1 and S2 normal. No appreciable rubs, murmurs or gallops. ABDOMEN: Soft, nontender, and nondistended. There is no rebound, voluntary guarding, or rigidity. : Deferred. No Madrigal. EXTREMITIES: Non-edematous and not cyanotic. No clubbing. Good capillary refill. SKIN: No skin breakdown. Vital Sign (Last 24 Hours) 02/17/25 18:30 Temp 98.2 Pulse 65 Resp 18 B/P (MAP) 129/73 Pulse Ox 99 O2 Delivery Nasal Cannula* O2 Flow Rate 2 FiO2 28 LABS: Laboratory: Test 02/17/25 17:00 02/17/25 16:35 02/17/25 09:09 02/17/25 08:05 Range/Units Whole Blood Glucose 180 H 70-110 MG/DL Erythrocyte Sedimentation Rate 55 H 0-30 MM/HR D-Dimer Quantitative (PE/DVT) 289 0-500 ng/mL Magnesium Level 2.60 H 1.80-2.40 mg/dL Ferritin 604 H 15-150 ng/mL Total Bilirubin 0.3 0.2-1.0 mg/dL Direct Bilirubin 0.1 0.0-0.3 mg/dL Aspartate Amino Transf (AST/SGOT) 17 10-37 U/L Alanine Aminotransferase (ALT/SGPT) 19 12-78 U/L Alkaline Phosphatase 47 L 50-136 U/L Lactate Dehydrogenase 185 81-234 U/L Total Creatine Kinase 70 21-232 U/L Troponin I High Sensitivity 393.5 *H 4-50 ng/L C-Reactive Protein, Quantitative 23.00 H 0.5-3.0 mg/L B-Type Natriuretic Peptide 358 H 0-100 pg/mL Total Protein 5.3 L 6.0-8.3 g/dL Albumin 2.2 L 3.5-5.0 g/dL Procalcitonin 0.24 0.05-0.5 ng/mL Urine Color LIGHT-YELLOW YELLOW Urine Appearance CLOUDY H CLEAR Urine pH 6.0 5.0-8.0 Urine Specific [place] 1.021 1.001-1.031 Urine Protein 300 H NEGATIVE mg/dL Urine Glucose (UA) >=1000 H NEGATIVE mg/dL Urine Ketones NEGATIVE NEGATIVE mg/dL Urine Occult Blood MODERATE H NEGATIVE Urine Nitrate 2+ H NEGATIVE Urine Bilirubin NEGATIVE NEGATIVE mg/dL Urine Urobilinogen 0.2 0.2-1.0 mg/dL Urine Leukocyte Esterase NEGATIVE NEGATIVE Gopi/uL Urine RBC 11-25 H 0-1 /HPF Urine WBC 2-5 H 0-1 /HPF Urine Squamous Epithelial Cells RARE 0-2 /HPF Urine Bacteria MANY None Seen /HPF White Blood Count 7.1 4.8-10.8 K/uL Red Blood Count 3.64 L 4.00-5.50 MIL/uL Hemoglobin 12.3 12.0-16.0 g/dL Hematocrit 37.4 36-48 % Mean Corpuscular Volume 102.7 H 79-99 fL Mean Corpuscular Hemoglobin 33.8 H 27.0-33.0 pg Mean Corpuscular Hemoglobin Concent 32.9 32.0-36.0 g/dL Red Cell Distribution Width 12.8 11.0-15.5 % Platelet Count 208 130-400 K/uL Mean Platelet Volume 9.5 7.5-10.5 fL Immature Granulocyte % (Auto) 0.8 0-1 % Neutrophils (%) (Auto) 81.8 H 40.0-77.0 % Lymphocytes (%) (Auto) 7.8 L 21.0-51.0 % Monocytes (%) (Auto) 9.0 3.0-13.0 % Eosinophils (%) (Auto) 0.3 0.0-8.0 % Basophils (%) (Auto) 0.3 0.0-5.0 % Neutrophils # (Auto) 5.8 1.8-7.7 K/uL Lymphocytes # (Auto) 0.6 L 1.0-4.8 K/uL Monocytes # (Auto) 0.6 0.1-1.0 K/uL Eosinophils # (Auto) 0.02 0.00-0.70 K/uL Basophils # (Auto) 0.02 0.00-0.20 K/uL Absolute Immature Granulocyte (auto 0.06 0-1 K/uL Nucleated Red Blood Cells 0.0 0.0-0.19 % White Cell Morphology Comment See comments Sodium Level 134 L 136-145 mmol/L Potassium Level 5.0 3.5-5.1 mmol/L Chloride Level 99 L 101-111 mmol/L Carbon Dioxide Level 29 21-32 mmol/L Blood Urea Nitrogen 39 H 7-18 mg/dL Creatinine 1.6 H 0.5-1.0 mg/dL Glomerular Filtration Rate Calc 37 >90 mL/min Random Glucose 257 H 70-105 mg/dL Total Calcium 8.8 8.5-10.1 mg/dL Test 02/17/25 08:00 Range/Units Influenza Type A Antigen Negative For Type A NEGATIVE Influenza Type B Antigen Negative For Type B NEGATIVE SARS-CoV-2, RNA, NAAT POSITIVE SARS CoV-2 *A NEGATIVE Current Medications Medications (Trade) Dose Ordered Sig/Rubi Route PRN Reason Start Time Stop Time Status Last Admin Dose Admin Albuterol Sulfate (Proventil 0.083% 2.5mg/3ml) 2.5 mg Q6H PRN IH SHORTNESS OF BREATH/ wheezing 02/17/25 16:30 03/19/25 16:29 Aspirin (Aspirin 81mg Chew Tab) 81 mg DAILY PO 02/18/25 09:00 02/17/25 16:07 DC Aspirin (Aspirin 81mg Chew Tab) 81 mg DAILY PO 02/18/25 09:00 03/20/25 08:59 Atorvastatin Calcium (LIPItor 40MG) 40 mg HS PO 02/17/25 21:00 03/19/25 20:59 Budesonide (Pulmicort 0.5 Mg/2ml) 0.5 mg BIDRESP IH 02/17/25 18:00 03/19/25 17:59 Clonidine HCl (CATApres 0.1 mg TAB) 0.1 mg BID PO 02/17/25 21:00 03/19/25 20:59 Clopidogrel Bisulfate (plaVIX 75MG) 75 mg DAILY PO 02/18/25 09:00 03/20/25 08:59 Dexamethasone Sodium Phosphate (dexaMETHasone 4MG/ML 1ML VIAL) 6 mg Q24H IVP 02/17/25 18:00 03/19/25 17:59 Enoxaparin Sodium (Lovenox) 30 mg DAILY SQ 02/18/25 09:00 03/20/25 08:59 Gabapentin (NEURontin 300 MG CAP) 300 mg TID PO 02/17/25 21:00 03/19/25 20:59 Hydralazine HCl ([id number] TAB) 50 mg BID PO 02/17/25 21:00 03/19/25 20:59 Hydromorphone HCl (DiLAUDid 0.5MG INJ) 0.2 mg Q6H PRN IVP SEVERE PAIN (7-10) 02/17/25 16:30 02/17/25 18:45 DC 02/17/25 17:19 0.2 MG Hydromorphone HCl (DiLAUDid 0.5MG INJ) 0.5 mg Q6H PRN IVP SEVERE PAIN (7-10) 02/17/25 20:00 02/22/25 19:59 Insulin Human Regular (humuLIN R 100 UNIT/ML 3ML) INSULIN SLIDING SCAL... ACHS SQ 02/17/25 16:30 03/19/25 16:29 02/17/25 17:11 4 UNIT Isosorbide Mononitrate (Imdur 30mg Sr) 30 mg DAILY PO 02/18/25 09:00 03/20/25 08:59 Levofloxacin/ Dextrose 100 ml @ 100 mls/hr Q24H IV 02/17/25 15:00 02/27/25 14:59 02/17/25 17:12 100 MLS/HR Losartan Potassium (CozAAR 25MG TAB) 25 mg DAILY PO 02/18/25 09:00 03/20/25 08:59 Metoprolol Succinate (TopROL XL) 25 mg BID PO 02/17/25 21:00 03/19/25 20:59 Montelukast Sodium (SinguLAIR) 10 mg DAILY PO 02/18/25 09:00 03/20/25 08:59 Trazodone HCl (DesyREL/OlepTRO) 150 mg HS PO 02/17/25 21:00 03/19/25 20:59 DIAGNOSTICS / RADIOLOGY: SERVICE 0800 REASON: cp ORDERING PHYSICIAN: LIYAH BILL MD PROCEDURE: CXR1VW - CHEST 1VW EXAM: CR Chest, 1 View. CLINICAL HISTORY: cp COMPARISON: Radiograph dated November 27, 2024 FINDINGS: LUNGS: There is no mass, infiltrate, or acute pulmonary abnormality. PLEURAL SPACES: No evidence of pleural effusion or pneumothorax. MEDIASTINUM: Stable cardiomegaly. Pulmonary vessels and interstitial markings are within normal limits. BONES: No acute osseous abnormality. IMPRESSION: No acute cardiopulmonary pathology is evident. /[place] DICTATED BY: MEETA BRADSHAW Jr., MD DATE: 02/17/251008 ELECTRONICALLY SIGNED BY: MEETA BRADSHAW Jr., MD DATE: 02/17/251008 ASSESSMENT: Acute hypoxemic respiratory failure, POA Acute SARs COVID 19 infection, POA Status post fall, POA Elevated troponin likely demand ischemia, POA History of multivessel coronary artery disease with multiple prior PCIs, POA History of ischemic cardiomyopathy with LVEF of 35-40%, POA History of carotid stenosis with prior history of Right carotid endarterectomy in 12/2023 and left carotid artery stent placement in 04/2024 History of TIA/CVA, POA Urinary tract infection, POA History of type 2 diabetes mellitus, POA History of significant orthostatic hypotension/dysautonomia, POA Obesity, POA Suspected CHANDLER, POA Acute on chronic lower back pain status post fall, POA Frailty, POA CKD stage 3, POA Macrocytosis, POA PLAN: Patient will be admitted to cardiac telemetry floor Patient is currently needing 2 L supplemental O2 therapy by nasal cannula, patient is noted to be SARs COVID 19 positive as well Continue with supplemental O2 therapy to maintain O2 saturations greater than 92% We will start patient on IV dexamethasone 6 mg daily due to O2 requirements Urinalysis suggestive of mild UTI, we will keep patient on IV levofloxacin We will check COVID associated inflammatory markers including D-dimer, CRP, LDH and ferritin Continue with dual antiplatelet therapy with aspirin and Plavix, we will keep patient on DVT prophylaxis with Lovenox Renal function will be monitored closely Request consultation with pulmonology We will trend cardiac panel to rule out ACS, patient has multiple cardiac comorbidities which puts her at high-risk, we will have Cardiology follow up with this patient, patient remains at risk of COVID associated myocarditis as well We will follow up CT of the lumbar spine for further evaluation of back pain, we will start patient on hydromorphone 0.5 mg q.6 hours p.r.n. for severe pain Patient to continue with antihypertensive therapy with Clonidine 0.1 mg twice daily, hydralazine 50 mg b.i.d., isosorbide mononitrate 30 mg daily, losartan 25 mg daily, metoprolol succinate 25 mg b.i.d. We will see how patient progresses in the next 48-72 hours, we will request consultation with Physical therapy We will start patient on sliding scale insulin and dose adjust Lantus based on blood glucose trend, anticipate patient will have steroid associated hyperglycemia, we will monitor blood glucose trend closely All labs will be repeated in the morning Patient remains high-risk with regards to COVID-19 infection from multiple underlying comorbidities Prognosis: Guarded Plan of care was discussed with patient and at bedside Date of service: 02/17/2025, Endy Hernandez MD Advanced Care Planning: Which of the following were discussed: Hospice care: Yes __ No _X_ Therapeutic options: Yes _X_ No __ Advance directives: Yes _X_ No __ Other discussions: Discussed with who?: Patient Voluntary nature of this service was explained to the patient? Yes _x_ No __ Amount of time spent: 20 minutes ENDY HERNANDEZ MD Feb 17, 2025 20:30
[2025-02-17] MEDS: GABAPENTIN 300 MG CAPSULE PO SCH (21:03)
[2025-02-18] MEDS: BENZOCAINE/MENTH/CETYLPYRD CL 1 EACH LOZENGE MM PRN (01:41)
[2025-02-18 04:06] VITALS: BP 144/73; PULSE 67; RESP 16; TEMP 99.3
[2025-02-18 07:08] LABS: IMMATURE GRANULOCYTE ABSOLUTE 0.04 K/uL (0-1); NUCLEATED RED BLOOD CELLS 0.0 % (0.0-0.19); PLATELET COUNT (AUTO) 183 K/uL (130-400); RED BLOOD CELL COUNT(AUTO) 3.44 MIL/uL (4.00-5.50); RED CELL DISTRIBUTION WIDTH 12.7 % (11.0-15.5); WHITE BLOOD COUNT (AUTO) 4.0 K/uL (4.8-10.8)
[2025-02-18 07:18] VITALS: PULSE 68; RESP 18
[2025-02-18 07:27] LABS: CREATINE KINASE, TOTAL 91.0 U/L (21-232); CREATININE 1.6 mg/dL (0.5-1.0); GLOMERULAR FILTR. RATE CALC 37.0 mL/min (>90); GLUCOSE,RANDOM 278.0 mg/dL (70-105); SODIUM SERUM 132.0 mmol/L (136-145); UREA NITROGEN, BLOOD 47.0 mg/dL (7-18)
[2025-02-18 07:28] VITALS: PULSE 68; RESP 18; O2SAT 99
--- NOTE | 2025-02-18 08:11 | PN ---
[facility] PROGRESS NOTE Date of Service: Feb 18, 2025 Time of Service: 08:09 SUBJECTIVE: 59-year-old female with underlying history of coronary artery disease with prior history of PCI (with MELANY x2 to proximal and mid left circumflex, PCI to mid to distal LAD, PCI to distal RCA), CKD stage 3, orthostatic hypotension, hyperlipidemia, hypertension, history of carotid artery stenosis status post right carotid endarterectomy in 12/2023 and left carotid stent placement in 04/2024, history of TIA/CVA (2023), obstructive sleep apnea, type 2 diabetes mellitus, history of anemia, history of recurrent UTIs, obesity who presented to the ER for further evaluation after patient sustained a fall. Patient states that she felt disoriented today while she was using the best site commode and slid of the chair hitting the back of the head as well as the lower back. Patient denies any syncope. She has been feeling ill over the last two days with rhinorrhea, congestion. Denies any shortness of breath or pleurisy. Reports being exposed to COVID in the family. Patient denies any chest pain. She was previously hospitalized in [facility] in 01/2024 for significant dysautonomia and patient does have underlying history of significant orthostatic hypotension. She is followed by Dr. Lombardo with [facility] as outpatient and she has underlying history of ischemic cardiomyopathy and multivessel coronary artery disease. Patient is also followed by Dr. Mcconnell as well for management of dysautonomia. On presentation to the hospital, patient was noted to be febrile with T-max of 100.6 F, heart rate of 93, blood pressure of 155/85 and she was needing 2 L of O2 supplementation by nasal cannula. Chest x-ray showed no significant infiltrates. Labs on presentation showed WBC count of 7100, hemoglobin of 12.3, MCV of 102.7. BMP on presentation showed sodium of 134, potassium of 5.0, BUN of 39, creatinine 1.6, high sensitivity cardiac troponin of 351 and patient was noted to be SARS COVID 19 positive. Patient will be admitted for further treatment and management of acute hypoxemic respiratory failure. Patient is currently requiring 2 L of O2 supplementation by nasal cannula. Patient will be started on IV dexamethasone for management of SARs COVID 19 infection. Troponin will be cycled to rule out active ACS. We will monitor this patient closely given high-risk comorbidities. 02/18/2025- Patient evaluated bedside. No overnight event. She is on 2 L of oxygen. Her pertinent lab is positive for creatinine 1.6, C-reactive protein 23, potassium 5.5. Troponin> 351> 399> 393 >193. She got 1 dose of Lokelma 10 gm. She is started on levofloxacin for UTI. She is on Decadron for hypoxia due to COVID, aspirin, Plavix. At this point of time she requires remdesivir but is not available in the pharmacy. CT head and CT lumbar, cervical revealed no acute abnormalities. Chest x-ray was negative for acute cardiopulmonary pathology. Pulmonology consulted. Plan as discussed below REVIEW OF SYSTEMS CONSTITUTIONAL: Fall today, reports having history of orthostasis NEUROLOGICAL: Denies headache, amaurosis fugax, motor weakness, sensory deficit, vertigo/spinning sensation, or tremors. ENT: Rhinorrhea, congestion CARDIOVASCULAR: Denies any exertional angina, dyspnea on exertion, orthopnea, paroxysmal nocturnal dyspnea, palpitations, life-threatening arrhythmias, claudication. PULMONARY: Denies any shortness of breath, cough, phlegm/sputum, hemoptysis, pleuritic chest pain. SLEEP: Denies morning headaches, daytime somnolence or napping. Denies dif ficulty falling asleep, staying asleep, waking from sleep. Denies knowledge of snoring. GASTROINTESTINAL: Denies any type of dysphagia to either liquids or solids. Denies nausea, vomiting, pyrosis, early satiety, abdominal pain, diarrhea, constipation, or changes in stool consistency or caliber. Denies coffee-ground emesis, hematemesis, hematochezia, or melanotic stools. GENITOURINARY: Denies frequency, urgency, nocturia, hematuria or incontinence (Storage/Irritative symptoms.) Low urinary stream, straining to void, urinary intermittency or hesitancy, splitting of the voiding stream, terminal dribbling. ENDOCRINOLOGIC: Denies polyuria, polydipsia, polyphagia or heat/cold intolerances. HEMATOLOGIC: Denies thrombophilia/previous clots, or coagulopathy/bleeding disorders. ONCOLOGIC: Denies personal history of malignancy. DERMATOLOGIC: Denies rashes or pruritus. PSYCHIATRIC: Denies any suicidal or homicidal ideation. Denies hallucinations. PHYSICAL EXAM GENERAL APPEARANCE: The patient is awake, alert, currently on 2 L of O2 supplementation by nasal cannula NEUROLOGICAL: Cranial nerves II-XII grossly intact. Neurological examination is nonfocal HEENT: Face is symmetric. Pupils are equal and reactive. Extraocular movements are intact. NECK: Supple. No JVD. No thyromegaly. No submental, submandibular, pre- /postauricular, occipital or supraclavicular lymphadenopathy. CHEST: Normal chest expansion. No Telemetry. LUNGS: Mild crackles noted at bilateral lung bases CARDIOVASCULAR: Regular. S1 and S2 normal. No appreciable rubs, murmurs or gallops. ABDOMEN: Soft, nontender, and nondistended. There is no rebound, voluntary guarding, or rigidity. : Deferred. No Madrigal. EXTREMITIES: Non-edematous and not cyanotic. No clubbing. Good capillary refill. SKIN: No skin breakdown. Vital Signs (last 8hr) Date Time Temp Pulse Resp B/P (MAP) Pulse Ox O2 Delivery O2 Flow Rate FiO2 02/18/25 07:28 68 18 N/Cannula Low lpm 2.0 02/18/25 07:18 68 18 02/18/25 04:06 99.3 67 16 144/73 100 Nasal Cannula 2.0 LABS: Laboratory: Test 02/18/25 07:00 02/18/25 06:24 02/17/25 16:35 02/17/25 09:09 Range/Units White Blood Count 4.0 #L 4.8-10.8 K/uL Red Blood Count 3.44 L 4.00-5.50 MIL/uL Hemoglobin 11.5 L 12.0-16.0 g/dL Hematocrit 36.4 36-48 % Mean Corpuscular Volume 105.8 H 79-99 fL Mean Corpuscular Hemoglobin 33.4 H 27.0-33.0 pg Mean Corpuscular Hemoglobin Concent 31.6 L 32.0-36.0 g/dL Red Cell Distribution Width 12.7 11.0-15.5 % Platelet Count 183 130-400 K/uL Mean Platelet Volume 9.4 7.5-10.5 fL Immature Granulocyte % (Auto) 1.0 0-1 % Neutrophils (%) (Auto) 83.3 H 40.0-77.0 % Lymphocytes (%) (Auto) 11.6 L 21.0-51.0 % Monocytes (%) (Auto) 3.8 3.0-13.0 % Eosinophils (%) (Auto) 0.0 0.0-8.0 % Basophils (%) (Auto) 0.3 0.0-5.0 % Neutrophils # (Auto) 3.3 1.8-7.7 K/uL Lymphocytes # (Auto) 0.5 L 1.0-4.8 K/uL Monocytes # (Auto) 0.2 0.1-1.0 K/uL Eosinophils # (Auto) 0.00 0.00-0.70 K/uL Basophils # (Auto) 0.01 0.00-0.20 K/uL Absolute Immature Granulocyte (auto 0.04 0-1 K/uL Nucleated Red Blood Cells 0.0 0.0-0.19 % Red Blood Cell Morphology See comments Sodium Level 132 L 136-145 mmol/L Potassium Level 5.5 H 3.5-5.1 mmol/L Chloride Level 100 L 101-111 mmol/L Carbon Dioxide Level 27 21-32 mmol/L Blood Urea Nitrogen 47 H 7-18 mg/dL Creatinine 1.6 H 0.5-1.0 mg/dL Glomerular Filtration Rate Calc 37 >90 mL/min Random Glucose 278 H 70-105 mg/dL Total Calcium 8.5 8.5-10.1 mg/dL Magnesium Level 2.90 H 1.80-2.40 mg/dL Total Creatine Kinase 91 # 21-232 U/L Troponin I High Sensitivity 193.9 *H 4-50 ng/L Whole Blood Glucose 284 #H 70-110 MG/DL Erythrocyte Sedimentation Rate 55 H 0-30 MM/HR D-Dimer Quantitative (PE/DVT) 289 0-500 ng/mL Ferritin 604 H 15-150 ng/mL Total Bilirubin 0.3 0.2-1.0 mg/dL Direct Bilirubin 0.1 0.0-0.3 mg/dL Aspartate Amino Transf (AST/SGOT) 17 10-37 U/L Alanine Aminotransferase (ALT/SGPT) 19 12-78 U/L Alkaline Phosphatase 47 L 50-136 U/L Lactate Dehydrogenase 185 81-234 U/L C-Reactive Protein, Quantitative 23.00 H 0.5-3.0 mg/L B-Type Natriuretic Peptide 358 H 0-100 pg/mL Total Protein 5.3 L 6.0-8.3 g/dL Albumin 2.2 L 3.5-5.0 g/dL Procalcitonin 0.24 0.05-0.5 ng/mL Urine Color LIGHT-YELLOW YELLOW Urine Appearance CLOUDY H CLEAR Urine pH 6.0 5.0-8.0 Urine Specific [place] 1.021 1.001-1.031 Urine Protein 300 H NEGATIVE mg/dL Urine Glucose (UA) >=1000 H NEGATIVE mg/dL Urine Ketones NEGATIVE NEGATIVE mg/dL Urine Occult Blood MODERATE H NEGATIVE Urine Nitrate 2+ H NEGATIVE Urine Bilirubin NEGATIVE NEGATIVE mg/dL Urine Urobilinogen 0.2 0.2-1.0 mg/dL Urine Leukocyte Esterase NEGATIVE NEGATIVE Gopi/uL Urine RBC 11-25 H 0-1 /HPF Urine WBC 2-5 H 0-1 /HPF Urine Squamous Epithelial Cells RARE 0-2 /HPF Urine Bacteria MANY None Seen /HPF Test 02/17/25 08:05 02/17/25 08:00 Range/Units White Cell Morphology Comment See comments Influenza Type A Antigen Negative For Type A NEGATIVE Influenza Type B Antigen Negative For Type B NEGATIVE SARS-CoV-2, RNA, NAAT POSITIVE SARS CoV-2 *A NEGATIVE Current Medications Medications (Trade) Dose Ordered Sig/Rubi Route PRN Reason Start Time Stop Time Status Last Admin Dose Admin Albuterol Sulfate (Proventil 0.083% 2.5mg/3ml) 2.5 mg Q6H PRN IH SHORTNESS OF BREATH/ wheezing 02/17/25 16:30 03/19/25 16:29 Aspirin (Aspirin 81mg Chew Tab) 81 mg DAILY PO 02/18/25 09:00 02/17/25 16:07 DC Aspirin (Aspirin 81mg Chew Tab) 81 mg DAILY PO 02/18/25 09:00 03/20/25 08:59 Atorvastatin Calcium (LIPItor 40MG) 40 mg HS PO 02/17/25 21:00 03/19/25 20:59 02/17/25 21:03 40 MG Benzocaine (Cepacol Sore Throat Lozenge) 1 each Q4H PRN MM SORE THROAT 02/18/25 02:00 03/20/25 01:59 02/18/25 01:41 1 EACH Budesonide (Pulmicort 0.5 Mg/2ml) 0.5 mg BIDRESP IH 02/17/25 18:00 8/31/25 17:59 02/18/25 07:16 0.5 MG Clonidine HCl (CATApres 0.1 mg TAB) 0.1 mg BID PO 02/17/25 21:00 03/19/25 20:59 02/17/25 21:03 0.1 MG Clopidogrel Bisulfate (plaVIX 75MG) 75 mg DAILY PO 02/18/25 09:00 03/20/25 08:59 Dexamethasone Sodium Phosphate (dexaMETHasone 4MG/ML 1ML VIAL) 6 mg Q24H IVP 02/17/25 18:00 03/19/25 17:59 02/17/25 21:01 6 MG Enoxaparin Sodium (Lovenox) 30 mg DAILY SQ 02/18/25 09:00 03/20/25 08:59 Furosemide (LASix 40MG TAB) 40 mg DAILY PO 02/18/25 09:00 03/20/25 08:59 Gabapentin (NEURontin 300 MG CAP) 300 mg TID PO 02/17/25 21:00 03/19/25 20:59 02/17/25 21:03 300 MG Hydralazine HCl ([id number] TAB) 50 mg BID PO 02/17/25 21:00 03/19/25 20:59 02/17/25 21:02 50 MG Hydromorphone HCl (DiLAUDid 0.5MG INJ) 0.2 mg Q6H PRN IVP SEVERE PAIN (7-10) 02/17/25 16:30 02/17/25 18:45 DC 02/17/25 17:19 0.2 MG Hydromorphone HCl (DiLAUDid 0.5MG INJ) 0.5 mg Q6H PRN IVP SEVERE PAIN (7-10) 02/17/25 20:00 02/22/25 19:59 02/18/25 07:19 0.5 MG Insulin Glargine (LANtus 100 UNITS/ML 10 ML VIAL) 15 units DAILY SQ 02/18/25 09:00 03/20/25 08:59 Insulin Human Regular (humuLIN R 100 UNIT/ML 3ML) INSULIN SLIDING SCAL... ACHS SQ 02/17/25 16:30 03/19/25 16:29 02/18/25 06:31 12 UNIT Isosorbide Mononitrate (Imdur 30mg Sr) 30 mg DAILY PO 02/18/25 09:00 03/20/25 08:59 Levofloxacin/ Dextrose 100 ml @ 100 mls/hr Q24H IV 02/17/25 15:00 02/27/25 14:59 02/17/25 17:12 100 MLS/HR Losartan Potassium (CozAAR 25MG TAB) 25 mg DAILY PO 02/18/25 09:00 03/20/25 08:59 Metoprolol Succinate (TopROL XL) 25 mg BID PO 02/17/25 21:00 03/19/25 20:59 02/17/25 21:03 25 MG Montelukast Sodium (SinguLAIR) 10 mg DAILY PO 02/18/25 09:00 03/20/25 08:59 Trazodone HCl (DesyREL/OlepTRO) 150 mg HS PO 02/17/25 21:00 03/19/25 20:59 02/17/25 21:05 150 MG DIAGNOSTICS / RADIOLOGY: ASSESSMENT: Acute hypoxemic respiratory failure, POA Acute SARs COVID 19 infection, POA Status post fall, POA Elevated troponin likely demand ischemia, POA History of multivessel coronary artery disease with multiple prior PCIs, POA History of ischemic cardiomyopathy with LVEF of 35-40%, POA History of carotid stenosis with prior history of Right carotid endarterectomy in 12/2023 and left carotid artery stent placement in 04/2024 History of TIA/CVA, POA Urinary tract infection, POA History of type 2 diabetes mellitus, POA History of significant orthostatic hypotension/dysautonomia, POA Obesity, POA Suspected CHANDLER, POA Acute on chronic lower back pain status post fall, POA Frailty, POA CKD stage 3, POA Macrocytosis, POA PLAN: Patient will be admitted to cardiac telemetry floor Acute hypoxemic respiratory failure, POA Acute SARs COVID 19 infection, POA Urinary tract infection, POA -Patient is currently needing 2 L supplemental O2 therapy by nasal cannula, patient is noted to be SARs COVID 19 positive as well -Continue with supplemental O2 therapy to maintain O2 saturations greater than 92% -Started on IV dexamethasone 6 mg daily due to O2 requirements -We will check COVID associated inflammatory markers including D-dimer, CRP, LDH and ferritin -Started on IV levofloxacin (day 2) 500 mg daily -Renal function will be monitored closely -Request consultation with pulmonology Elevated troponin likely demand ischemia, POA History of multivessel coronary artery disease with multiple prior PCIs, POA History of ischemic cardiomyopathy with LVEF of 35-40%, POA History of carotid stenosis with prior history of Right carotid endarterectomy in 12/2023 and left carotid artery stent placement in 04/2024 -Troponin> 351> 399> 393 >193. -Continue with dual antiplatelet therapy with aspirin and Plavix, we will keep patient on DVT prophylaxis with Lovenox -We will trend cardiac panel to rule out ACS, patient has multiple cardiac comor bidities which puts her at high-risk, we will have Cardiology follow up with this patient, patient remains at risk of COVID associated myocarditis as well -Patient to continue with antihypertensive therapy with Clonidine 0.1 mg twice daily, hydralazine 50 mg b.i.d., isosorbide mononitrate 30 mg daily, losartan 25 mg daily, metoprolol succinate 25 mg b.i.d. Hyperkalemia -Potassium this morning 5.5, no changes in EKG related to hyperkalemia -gave 1 dose of Lokelma. We will check potassium in the evening. Frailty -We will see how patient progresses in the next 48-72 hours, we will request consultation with Physical therapy History of type 2 diabetes mellitus -We will start patient on sliding scale insulin and dose adjust Lantus based on blood glucose trend, anticipate patient will have steroid associated hyperglycemia, we will monitor blood glucose trend closely DVT prophylaxis: Enoxaparin ATTESTATION BY PHYSICIAN I have seen and examined the patient. I reviewed the documentation, medical decision making, and treatment plan as noted by the resident provider above. I agree with the findings and plan of care. Mingo Villanueva MD, SUNIL MD Feb 18, 2025 08:10
[2025-02-18] MEDS: ISOSORBIDE MONO 30MG SR TAB PO SCH (08:56)
[2025-02-18] MEDS: ASPIRIN 81MG CHEW TAB PO SCH (08:56)
[2025-02-18] MEDS: ENOXAPARIN SODIUM 30 MG/0.3 ML SQ SCH (09:00)
[2025-02-18] MEDS ORDERED: ASPIRIN 81MG CHEW TAB PO SCH (09:00)
--- NOTE | 2025-02-18 09:03 | NUR ---
called pharmacy, spoke to Mrs. Mosqueda and notified her we did not have lantus on pixies.
[2025-02-18] MEDS: NA ZIRCON CYCLOSIL(LOKELMA 10GM) PO SCH (10:50)
--- NOTE | 2025-02-18 12:00 | NUR ---
BLOOD GLUCOSE 198. COVERED WITH 4 UNITS OF HUMULIN R; FOLLOWING INSULIN SCALE IN PATIENTS E-SEP.
[2025-02-18 14:00] VITALS: PULSE 68; RESP 18; O2SAT 96
--- NOTE | 2025-02-18 14:01 | CONS ---
[facility] CONSULTATION NOTE Date Patient Seen: Feb 18, 2025 Time of Visit: 13:39 Supervising Physician: [Dr Raman Reason for Consultation: Covid + viral infection Primary Care Physician: [ ] Outpatient Specialists: [ ] Inpatient Consults: [BIS PROBLEM LIST: Covid +Viral infection Elevated troponin likely demand ischemia Acute cystitis, POA History of multivessel coronary artery disease with multiple prior PCIs, POA History of ischemic cardiomyopathy with LVEF of 35-40%, POA History of carotid stenosis with prior history of Right carotid endarterectomy in 12/2023 and left carotid artery stent placement in 04/2024 History of TIA/CVA, POA Type 2 diabetes mellitus, POA History of significant orthostatic hypotension/dysautonomia, POA Obesity, POA Suspected CHANDLER, undiagnosed/untreated POA Acute on chronic lower back pain status post fall, POA Frailty, POA CKD stage 3, POA PLAN SUMMARY: Supplemental oxygen as needed Patient on room air at this time Enhanced COVID precautions No wheezing on exam-no need for dexamethasone Stat ABGs Outpatient follow up in Pulmonary Clinic for CHANDLER evaluation and treatment HPI: Mrs. Lexx Faye is a 59-year-old female with a past medical history of CAD with prior history of PCI w/ MELANY x 2, CKD stage 3, orthostatic hypotension, hyperlipidemia, hypertension, history of carotid artery stenosis s/p right carotid endarterectomy in 12/2023 and left carotid stent placement in 04/2024, history of TIA/CVA (2023), Obesity, type 2 diabetes mellitus, anemia, recurrent UTIs, presented to the ER for further evaluation after patient sustained a fall. Patient reports she woke up early this morning and had to go to the bathroom. She reports she felt pretty weak therefore brought the bedside commode and assisted her. Patient reports her went out to get some toiletries and she felt she was strong enough to get back into bed however she was pretty weak and fell hitting the bedside commode and the back of her head and back on her desk. Patient denies any syncope. She reports feeling ill over the last two days with rhinorrhea, congestion. Denies any shortness of breath or pleurisy. Reports being exposed to COVID in the family. Patient denies shortness or breath, chest pain, nausea, vomiting, abdominal pain. Patient was previously hospitalized at [facility] for significant dysautonomia and orthostatic hypotension. She was seen by Cardiology Dr. Lombardo for ischemic cardiomyopathy and multivessel CAD. Patient is also follow up with Dr. tejeda for dysautonomia. Patient is found to be COVID positive and for this reason we are consulted. Patient is seen sitting up in a stretcher in the emergency department does not appear to be in any acute distress at this time. Patient is currently on room air with an O2 sat is 97% after communicating with me for about 5 minutes. Nursing reports she has been on room air for several hours now. No acute changes reported overnight. Patient reports that she is needing a sleep study as her primary physician suspects obstructive sleep apnea. No wheezing on noted on exam therefore no need for dexamethasone. Admission chest x-ray shows no infiltrates. No ABGs were obtain by the ED staff. We will request at this time. Patient is found to be obese. Patient has been advised to follow up in outpatient clinic for CHANDLER evaluation and treatment. Patient was also found to have elevated troponins likely demand ischemia however recommend further workup. From a pulmonary standpoint, recommend duo nebs as needed, Pulmicort b.i.d., patient was found to have an elevated BNP therefore agree with diuresing with Lasix. Patient to follow up with Dr. Hannah Kay as outpatient1 week post discharge to arrange a sleep study for CHANDLER evaluation and treatment. We will continue to follow with you. PAST MEDICAL HX: see above PAST SURGICAL HX: noncontributory SOCIAL HISTORY: No tobacco, ETOH, or illicit drug use Coded Allergies: Penicillins (Unverified Allergy, Severe, hives, 01/19/14) ceftriaxone (Unverified Allergy, Severe, hives, 01/19/14) REVIEW OF SYSTEMS: 12 point ROS reviewed with patient. Pertinent positives mentioned above. Otherwise negative. PHYSICAL EXAM: GENERAL: alert, weak, awake oriented x 3 HEENT: EOMI, Sclera non icteric, moist mucosa NECK: Supple, no JVD, trachea midline LUNGS: Clear breath sounds bilaterally. No wheezes HEART: Regular rate and rhythm. Normal S1 and S2, without murmurs ABD: Abdomen soft, nontender. Bowel sounds present EXT: No clubbing cyanosis or edema NEURO: Alert and oriented to person, follows commands Vital Signs (last 8hr) Date Time Temp Pulse Resp B/P (MAP) Pulse Ox O2 Delivery O2 Flow Rate FiO2 02/18/25 12:00 98.1 71 15 117/67 90 Room Air* 0 21 02/18/25 08:54 70 153/74 02/18/25 07:28 68 18 N/Cannula Low lpm 2.0 02/18/25 07:18 68 18 02/18/25 07:10 98.2 73 16 153/73 92 Room Air* 0 21 LABS: Hematology Labs: Test 02/18/25 07:00 02/17/25 16:35 02/17/25 08:05 Range/Units White Blood Count 4.0 #L 4.8-10.8 K/uL Red Blood Count 3.44 L 4.00-5.50 MIL/uL Hemoglobin 11.5 L 12.0-16.0 g/dL Hematocrit 36.4 36-48 % Mean Corpuscular Volume 105.8 H 79-99 fL Mean Corpuscular Hemoglobin 33.4 H 27.0-33.0 pg Mean Corpuscular Hemoglobin Concent 31.6 L 32.0-36.0 g/dL Red Cell Distribution Width 12.7 11.0-15.5 % Platelet Count 183 130-400 K/uL Mean Platelet Volume 9.4 7.5-10.5 fL Immature Granulocyte % (Auto) 1.0 0-1 % Neutrophils (%) (Auto) 83.3 H 40.0-77.0 % Lymphocytes (%) (Auto) 11.6 L 21.0-51.0 % Monocytes (%) (Auto) 3.8 3.0-13.0 % Eosinophils (%) (Auto) 0.0 0.0-8.0 % Basophils (%) (Auto) 0.3 0.0-5.0 % Neutrophils # (Auto) 3.3 1.8-7.7 K/uL Lymphocytes # (Auto) 0.5 L 1.0-4.8 K/uL Monocytes # (Auto) 0.2 0.1-1.0 K/uL Eosinophils # (Auto) 0.00 0.00-0.70 K/uL Basophils # (Auto) 0.01 0.00-0.20 K/uL Absolute Immature Granulocyte (auto 0.04 0-1 K/uL Nucleated Red Blood Cells 0.0 0.0-0.19 % Red Blood Cell Morphology See comments Erythrocyte Sedimentation Rate 55 H 0-30 MM/HR White Cell Morphology Comment See comments Chemistry Labs: Test 02/18/25 11:17 02/18/25 07:00 02/17/25 16:35 Range/Units Whole Blood Glucose 198 H 70-110 MG/DL Sodium Level 132 L 136-145 mmol/L Potassium Level 5.5 H 3.5-5.1 mmol/L Chloride Level 100 L 101-111 mmol/L Carbon Dioxide Level 27 21-32 mmol/L Blood Urea Nitrogen 47 H 7-18 mg/dL Creatinine 1.6 H 0.5-1.0 mg/dL Glomerular Filtration Rate Calc 37 >90 mL/min Random Glucose 278 H 70-105 mg/dL Total Calcium 8.5 8.5-10.1 mg/dL Magnesium Level 2.90 H 1.80-2.40 mg/dL Total Creatine Kinase 91 # 21-232 U/L Troponin I High Sensitivity 193.9 *H 4-50 ng/L Ferritin 604 H 15-150 ng/mL Total Bilirubin 0.3 0.2-1.0 mg/dL Direct Bilirubin 0.1 0.0-0.3 mg/dL Aspartate Amino Transf (AST/SGOT) 17 10-37 U/L Alanine Aminotransferase (ALT/SGPT) 19 12-78 U/L Alkaline Phosphatase 47 L 50-136 U/L Lactate Dehydrogenase 185 81-234 U/L C-Reactive Protein, Quantitative 23.00 H 0.5-3.0 mg/L B-Type Natriuretic Peptide 358 H 0-100 pg/mL Total Protein 5.3 L 6.0-8.3 g/dL Albumin 2.2 L 3.5-5.0 g/dL Procalcitonin 0.24 0.05-0.5 ng/mL Coagulation Labs: Test 02/17/25 16:35 Range/Units D-Dimer Quantitative (PE/DVT) 289 0-500 ng/mL DIAGNOSTICS / RADIOLOGY RESULTS: PATIENT: LEXX FAYE MR#: [id number] : 1965 SEX: F AGE: 59 LOCATION: [facility] ORDER [id number] STATUS: REG REPORT#: [id number] SERVICE [id number] REASON: cp ORDERING PHYSICIAN: LIYAH BILL MD PROCEDURE: CXR1VW - CHEST 1VW EXAM: CR Chest, 1 View. CLINICAL HISTORY: cp COMPARISON: Radiograph dated November 27, 2024 FINDINGS: LUNGS: There is no mass, infiltrate, or acute pulmonary abnormality. PLEURAL SPACES: No evidence of pleural effusion or pneumothorax. MEDIASTINUM: Stable cardiomegaly. Pulmonary vessels and interstitial markings are within normal limits. BONES: No acute osseous abnormality. IMPRESSION: No acute cardiopulmonary pathology is evident. /[facility] DICTATED BY: MEETA BRADSHAW Jr., MD DATE: 02/17/251008 ELECTRONICALLY SIGNED BY: MEETA BRADSHAW Jr., MD DATE: 02/17/251008 PLAN NEURO: Minimize central acting medications as possible. Maintain fall precautions, adequate lighting during the day PULMONARY: Supplemental 02 as needed. Maintain aspiration precautions at all times CARDIOVASCULAR: Follow hemodynamics. Vital signs per facility protocol GI & NUTRITION: Continue with nutritional support. Continue stool softeners and laxatives as needed. KIDNEYS & ELECTROLYTES: Strict monitoring of intake, output and overall fluid balance. Avoid nephrotoxic medications to the extent possible. Medications to be dosed according to renal function. Monitor electrolytes and replace as needed ENDOCRINE: Maintain blood glucose between 100-180 at all times. Hypoglycemia protocol in place INFECTIOUS DISEASE: Trend temperature, WBC and procalcitonin level Follow cultures, deescalate antibiotics as soon as possible. Panculture if new onset fever ONCOLOGY/HEMATOLOGY/COAGULATION: Monitor for s/s of bleeding Monitor hemoglobin, coagulation studies as needed SKIN: Pressure ulcer prevention per facility protocol Specialty mattress ORTHO/REHAB: Continue PT/OT Prophylaxis: Continue GI and DVT prophylaxis Code Status: Full Resuscitation Disposition: As per attending ATTESTATION BY PHYSICIAN I have evaluated the patient chart, medical records, and spoke with appropriate staff. I reviewed the documentation, medical decision making, and treatment plan as noted by the mid-level provider above. I agree with the findings and plan of care. John Raman MD, ECTOR N NP Feb 18, 2025 14:01
[2025-02-18 14:09] LABS: ABG BASE EXCESS -1.2 mmol/L (-2.0-3.0); ABG HCO3 23.1 mmol/L (21.0-28.0); ABG OXYGEN SATURATION 97.4 % (94.0-98.0); ABG PCO2 37 mmHg (32-45); ABG PH 7.408 (7.350-7.450); DEVICE COMMENT LR,JOVANA; PO2, ARTERIAL BG 95.4 mmHg (83.0-108.0); TEMPERATURE, CELSIUS BG 37.0 CELSIUS (35.5-37.0); VENT MODE, BG RA (ROOM AIR)
--- NOTE | 2025-02-18 15:50 | EKG ---
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
--- NOTE | 2025-02-18 16:00 | NUR ---
BLOOD GLUCOSE 203. COVERED WITH 6 UNITS OF HUMULIN R; FOLLOWING INSULIN SCALE IN PATIENTS E-MAR plus SCHEDULED HUMULIN R 5 UNITS.
[2025-02-18 18:53] VITALS: PULSE 70; RESP 18; O2SAT 97
[2025-02-19] VITALS (12 sets, daily range): BP systolic 135–172; BP diastolic 58–92; PULSE 64–89; RESP 18; TEMP 97.9–98.6; O2SAT 95–99
--- NOTE | 2025-02-19 00:30 | NUR ---
ADMISSION REC'D PT TO RM 201 AFTER RECEIVING REPORT FROM MARYJANE WOOTEN FROM ER DEPARTMENT, PT TRANSFERRED FROM STRETCHER TO BED, TOLERATED WELL, O2 1 LIT NC, NO ACUTE RESPIRATORY DISTRESS NOTED, JESSICA ELEVATED 30 DEGREES, SL INTACT LFA 20G, PUREWICK INTACT, ENHANCED PRECAUTIONS IN PLACE, SIDE RAILS UP X 3, CALL DUNNE WITHIN REACH, BED ALARM ON, ENCOURAGED TO CALL FOR ASSISTANCE
[2025-02-19 05:37] LABS: IMMATURE GRANULOCYTE ABSOLUTE 0.05 K/uL (0-1); NUCLEATED RED BLOOD CELLS 0.0 % (0.0-0.19); PLATELET COUNT (AUTO) 195 K/uL (130-400); RED BLOOD CELL COUNT(AUTO) 3.29 MIL/uL (4.00-5.50); RED CELL DISTRIBUTION WIDTH 12.3 % (11.0-15.5); WHITE BLOOD COUNT (AUTO) 3.1 K/uL (4.8-10.8)
[2025-02-19 05:52] LABS: CREATININE 1.7 mg/dL (0.5-1.0); GLOMERULAR FILTR. RATE CALC 34.0 mL/min (>90); GLUCOSE,RANDOM 301.0 mg/dL (70-105); SODIUM SERUM 133.0 mmol/L (136-145); UREA NITROGEN, BLOOD 52.0 mg/dL (7-18)
[2025-02-19] MEDS ORDERED: NIRM1TAB7 PO (13:36)
[2025-02-19] MEDS: ZYVOX 600 MG TAB PO SCH (16:19)
--- NOTE | 2025-02-19 16:28 | PN ---
[facility] PROGRESS NOTE Date of Service: Feb 19, 2025 Time of Service: 16:27 SUBJECTIVE: 59-year-old female with underlying history of coronary artery disease with prior history of PCI (with MELANY x2 to proximal and mid left circumflex, PCI to mid to distal LAD, PCI to distal RCA), CKD stage 3, orthostatic hypotension, hyperlipidemia, hypertension, history of carotid artery stenosis status post right carotid endarterectomy in 12/2023 and left carotid stent placement in 04/2024, history of TIA/CVA (2023), obstructive sleep apnea, type 2 diabetes mellitus, history of anemia, history of recurrent UTIs, obesity who presented to the ER for further evaluation after patient sustained a fall. Patient states that she felt disoriented today while she was using the best site commode and slid of the chair hitting the back of the head as well as the lower back. Patient denies any syncope. She has been feeling ill over the last two days with rhinorrhea, congestion. Denies any shortness of breath or pleurisy. Reports being exposed to COVID in the family. Patient denies any chest pain. She was previously hospitalized in [facility] in 01/2024 for significant dysautonomia and patient does have underlying history of significant orthostatic hypotension. She is followed by Dr. Lombardo with [facility] as outpatient and she has underlying history of ischemic cardiomyopathy and multivessel coronary artery disease. Patient is also followed by Dr. Mcconnell as well for management of dysautonomia. On presentation to the hospital, patient was noted to be febrile with T-max of 100.6 F, heart rate of 93, blood pressure of 155/85 and she was needing 2 L of O2 supplementation by nasal cannula. Chest x-ray showed no significant infiltrates. Labs on presentation showed WBC count of 7100, hemoglobin of 12.3, MCV of 102.7. BMP on presentation showed sodium of 134, potassium of 5.0, BUN of 39, creatinine 1.6, high sensitivity cardiac troponin of 351 and patient was noted to be SARS COVID 19 positive. Patient will be admitted for further treatment and management of acute hypoxemic respiratory failure. Patient is currently requiring 2 L of O2 supplementation by nasal cannula. Patient will be started on IV dexamethasone for management of SARs COVID 19 infection. Troponin will be cycled to rule out active ACS. We will monitor this patient closely given high-risk comorbidities. 02/18/2025- Patient evaluated bedside. No overnight event. She is on 2 L of oxygen. Her pertinent lab is positive for creatinine 1.6, C-reactive protein 23, potassium 5.5. Troponin> 351> 399> 393 >193. She got 1 dose of Lokelma 10 gm. She is started on levofloxacin for UTI. She is on Decadron for hypoxia due to COVID, aspirin, Plavix. At this point of time she requires remdesivir but is not available in the pharmacy. CT head and CT lumbar, cervical revealed no acute abnormalities. Chest x-ray was negative for acute cardiopulmonary pathology. Pulmonology consulted. 02/19/2025: Patient is seen and evaluated on the bedside. She has no symptoms. Her vitals are normal except for her blood pressure which is 170/83 and she is on 1l of oxygen. Her labs are normal except for WBC is 3.1, Hb is 11.2, Na is 133, Cl is 99, BUN is 52, Cr is 1.7, Glucose is 301, Ca is 8.3, MG is 2.8, CRP is 18.6. Her urine culture showed Enterococcus faecalis which is sensitive to ampicillin, vancomycin, pencillin and nitrofurantoin. So we started nitrofurantoin for 5 days. We also sent prescription for praxovel. We are waiting for cardiac clearance. After the clearance we can discharge her. REVIEW OF SYSTEMS CONSTITUTIONAL: Fall today, reports having history of orthostasis NEUROLOGICAL: Denies headache, amaurosis fugax, motor weakness, sensory deficit, vertigo/spinning sensation, or tremors. ENT: Rhinorrhea, congestion CARDIOVASCULAR: Denies any exertional angina, dyspnea on exertion, orthopnea, paroxysmal nocturnal dyspnea, palpitations, life-threatening arrhythmias, claudication. PULMONARY: Denies any shortness of breath, cough, phlegm/sputum, hemoptysis, pleuritic chest pain. SLEEP: Denies morning headaches, daytime somnolence or napping. Denies difficulty falling asleep, staying asleep, waking from sleep. Denies knowledge of snoring. GASTROINTESTINAL: Denies any type of dysphagia to either liquids or solids. Denies nausea, vomiting, pyrosis, early satiety, abdominal pain, diarrhea, constipation, or changes in stool consistency or caliber. Denies coffee-ground emesis, hematemesis, hematochezia, or melanotic stools. GENITOURINARY: Denies frequency, urgency, nocturia, hematuria or incontinence (Storage/Irritative symptoms.) Low urinary stream, straining to void, urinary intermittency or hesitancy, splitting of the voiding stream, terminal dribbling. ENDOCRINOLOGIC: Denies polyuria, polydipsia, polyphagia or heat/cold intoler ances. HEMATOLOGIC: Denies thrombophilia/previous clots, or coagulopathy/bleeding disorders. ONCOLOGIC: Denies personal history of malignancy. DERMATOLOGIC: Denies rashes or pruritus. PSYCHIATRIC: Denies any suicidal or homicidal ideation. Denies hallucinations. PHYSICAL EXAM GENERAL APPEARANCE: The patient is awake, alert, currently on 2 L of O2 supplementation by nasal cannula NEUROLOGICAL: Cranial nerves II-XII grossly intact. Neurological examination is nonfocal HEENT: Face is symmetric. Pupils are equal and reactive. Extraocular movements are intact. NECK: Supple. No JVD. No thyromegaly. No submental, submandibular, pre- /postauricular, occipital or supraclavicular lymphadenopathy. CHEST: Normal chest expansion. No Telemetry. LUNGS: No crackles, wheezing, rales CARDIOVASCULAR: Regular. S1 and S2 normal. No appreciable rubs, murmurs or gallops. ABDOMEN: Soft, nontender, and nondistended. There is no rebound, voluntary guarding, or rigidity. : Deferred. No Madrigal. EXTREMITIES: Non-edematous and not cyanotic. No clubbing. Good capillary refill. SKIN: No skin breakdown. Vital Signs (last 8hr) Date Time Temp Pulse Resp B/P (MAP) Pulse Ox O2 Delivery O2 Flow Rate FiO2 02/19/25 16:06 98.2 67 18 151/71 92 Nasal Cannula 1.0 02/19/25 12:25 97.9 68 18 143/69 93 Nasal Cannula 1.0 02/19/25 09:30 68 170/83 02/19/25 09:00 99 Nasal Cannula* 1 24 LABS: Laboratory: Test 02/19/25 15:44 02/19/25 05:19 02/18/25 14:07 02/18/25 07:00 Range/Units Whole Blood Glucose 290 H 70-110 MG/DL White Blood Count 3.1 L 4.8-10.8 K/uL Red Blood Count 3.29 L 4.00-5.50 MIL/uL Hemoglobin 11.2 L 12.0-16.0 g/dL Hematocrit 33.5 L 36-48 % Mean Corpuscular Volume 101.8 H 79-99 fL Mean Corpuscular Hemoglobin 34.0 H 27.0-33.0 pg Mean Corpuscular Hemoglobin Concent 33.4 32.0-36.0 g/dL Red Cell Distribution Width 12.3 11.0-15.5 % Platelet Count 195 130-400 K/uL Mean Platelet Volume 9.7 7.5-10.5 fL Immature Granulocyte % (Auto) 1.6 H 0-1 % Neutrophils (%) (Auto) 77.6 H 40.0-77.0 % Lymphocytes (%) (Auto) 17.6 L 21.0-51.0 % Monocytes (%) (Auto) 2.9 L 3.0-13.0 % Eosinophils (%) (Auto) 0.0 0.0-8.0 % Basophils (%) (Auto) 0.3 0.0-5.0 % Neutrophils # (Auto) 2.4 1.8-7.7 K/uL Lymphocytes # (Auto) 0.6 L 1.0-4.8 K/uL Monocytes # (Auto) 0.1 0.1-1.0 K/uL Eosinophils # (Auto) 0.00 0.00-0.70 K/uL Basophils # (Auto) 0.01 0.00-0.20 K/uL Absolute Immature Granulocyte (auto 0.05 0-1 K/uL Nucleated Red Blood Cells 0.0 0.0-0.19 % Sodium Level 133 L 136-145 mmol/L Potassium Level 4.8 3.5-5.1 mmol/L Chloride Level 99 L 101-111 mmol/L Carbon Dioxide Level 26 21-32 mmol/L Blood Urea Nitrogen 52 H 7-18 mg/dL Creatinine 1.7 H 0.5-1.0 mg/dL Glomerular Filtration Rate Calc 34 >90 mL/min Random Glucose 301 H 70-105 mg/dL Total Calcium 8.3 L 8.5-10.1 mg/dL Magnesium Level 2.80 H 1.80-2.40 mg/dL C-Reactive Protein, Quantitative 18.60 H 0.5-3.0 mg/L Blood Gas Specimen Type Arterial Arterial Blood pH 7.408 7.350-7.450 Arterial Blood Partial Pressure CO2 37 32-45 mmHg Arterial Blood Partial Pressure O2 95.4 83.0-108.0 mmHg Arterial Blood HCO3 23.1 21.0-28.0 mmol/L Arterial Blood Oxygen Saturation 97.4 94.0-98.0 % Arterial Blood Base Excess -1.2 -2.0-3.0 mmol/L Blood Gas Temperature 37.0 35.5-37.0 CELSIUS Blood Gas Vent Mode RA ROOM AIR FiO2 21.0 % Blood Gas Specimen Comment LUIS FERNANDO MONTANO Red Blood Cell Morphology See comments Total Creatine Kinase 91 # 21-232 U/L Troponin I High Sensitivity 193.9 *H 4-50 ng/L Test 02/17/25 16:35 Range/Units Erythrocyte Sedimentation Rate 55 H 0-30 MM/HR D-Dimer Quantitative (PE/DVT) 289 0-500 ng/mL Ferritin 604 H 15-150 ng/mL Total Bilirubin 0.3 0.2-1.0 mg/dL Direct Bilirubin 0.1 0.0-0.3 mg/dL Aspartate Amino Transf (AST/SGOT) 17 10-37 U/L Alanine Aminotransferase (ALT/SGPT) 19 12-78 U/L Alkaline Phosphatase 47 L 50-136 U/L Lactate Dehydrogenase 185 81-234 U/L B-Type Natriuretic Peptide 358 H 0-100 pg/mL Total Protein 5.3 L 6.0-8.3 g/dL Albumin 2.2 L 3.5-5.0 g/dL Procalcitonin 0.24 0.05-0.5 ng/mL Current Medications Medications (Trade) Dose Ordered Sig/Rubi Route PRN Reason Start Time Stop Time Status Last Admin Dose Admin Albuterol Sulfate (Proventil 0.083% 2.5mg/3ml) 2.5 mg Q6H PRN IH SHORTNESS OF BREATH/ wheezing 02/17/25 16:30 03/19/25 16:29 Aspirin (Aspirin 81mg Chew Tab) 81 mg DAILY PO 02/18/25 09:00 02/17/25 16:07 DC Aspirin (Aspirin 81mg Chew Tab) 81 mg DAILY PO 02/18/25 09:00 03/20/25 08:59 02/19/25 09:29 81 MG Atorvastatin Calcium (LIPItor 40MG) 40 mg HS PO 02/17/25 21:00 03/19/25 20:59 02/18/25 20:26 40 MG Benzocaine (Cepacol Sore Throat Lozenge) 1 each Q4H PRN MM SORE THROAT 02/18/25 02:00 03/20/25 01:59 02/18/25 01:41 1 EACH Budesonide (Pulmicort 0.5 Mg/2ml) 0.5 mg BIDRESP IH 02/17/25 18:00 03/19/25 17:59 02/19/25 07:13 0.5 MG Clonidine HCl (CATApres 0.1 mg TAB) 0.1 mg BID PO 02/17/25 21:00 03/19/25 20:59 02/19/25 09:30 0.1 MG Clopidogrel Bisulfate (plaVIX 75MG) 75 mg DAILY PO 02/18/25 09:00 03/20/25 08:59 02/19/25 09:28 75 MG Dexamethasone (DeCADron 4 mg TAB) 6 mg DAILY PO 02/20/25 09:00 03/22/25 08:59 Dexamethasone Sodium Phosphate (dexaMETHasone 4MG/ML 1ML VIAL) 6 mg Q24H IVP 02/17/25 18:00 02/19/25 15:25 DC 02/18/25 20:25 6 MG Enoxaparin Sodium (Lovenox) 30 mg DAILY SQ 02/18/25 09:00 03/20/25 08:59 02/19/25 09:28 30 MG Furosemide (LASix 40MG TAB) 40 mg DAILY PO 02/18/25 09:00 03/20/25 08:59 02/19/25 09:31 40 MG Gabapentin (NEURontin 300 MG CAP) 300 mg TID PO 02/17/25 21:00 03/19/25 20:59 02/19/25 09:28 300 MG Hydralazine HCl (WBFUGOLctg50MC TAB) 50 mg BID PO 02/17/25 21:00 03/19/25 20:59 02/19/25 09:29 50 MG Hydromorphone HCl (DiLAUDid 0.5MG INJ) 0.2 mg Q6H PRN IVP SEVERE PAIN (7-10) 02/17/25 16:30 02/17/25 18:45 DC 02/17/25 17:19 0.2 MG Hydromorphone HCl (DiLAUDid 0.5MG INJ) 0.5 mg Q6H PRN IVP SEVERE PAIN (7-10) 02/17/25 20:00 02/22/25 19:59 02/19/25 12:48 0.5 MG Insulin Glargine (LANtus 100 UNITS/ML 10 ML VIAL) 15 units DAILY SQ 02/18/25 09:00 02/18/25 17:01 DC Insulin Glargine (LANtus 100 UNITS/ML 10 ML VIAL) 15 units PM SQ 02/18/25 21:00 02/19/25 12:01 DC 02/18/25 21:06 15 UNITS Insulin Glargine (LANtus 100 UNITS/ML 10 ML VIAL) 20 units PM SQ 02/19/25 21:00 03/21/25 20:59 Insulin Human Regular (humuLIN R 100 UNIT/ML 3ML) 5 unit TIDAC SQ 02/18/25 17:00 02/19/25 11:59 DC 02/18/25 17:46 5 UNIT Insulin Human Regular (humuLIN R 100 UNIT/ML 3ML) 7 unit TIDAC SQ 02/19/25 17:00 03/21/25 16:59 02/19/25 16:19 7 UNIT Insulin Human Regular (humuLIN R 100 UNIT/ML 3ML) INSULIN SLIDING SCAL... ACHS SQ 02/17/25 16:30 03/19/25 16:29 02/19/25 16:18 12 UNIT Isosorbide Mononitrate (Imdur 30mg Sr) 30 mg DAILY PO 02/18/25 09:00 03/20/25 08:59 02/19/25 09:30 30 MG Levofloxacin/ Dextrose 100 ml @ 100 mls/hr Q24H IV 02/17/25 15:00 02/18/25 13:37 DC 02/17/25 17:12 100 MLS/HR Levofloxacin/ Dextrose 100 ml @ 100 mls/hr Q24H IV 02/18/25 17:00 02/28/25 16:59 02/19/25 16:19 100 MLS/HR Linezolid (Zyvox) 600 mg Q12H PO 02/19/25 15:30 03/01/25 15:29 02/19/25 16:19 600 MG Losartan Potassium (CozAAR 25MG TAB) 25 mg DAILY PO 02/18/25 09:00 03/20/25 08:59 02/18/25 08:54 25 MG Metoprolol Succinate (TopROL XL) 25 mg BID PO 02/17/25 21:00 03/19/25 20:59 02/19/25 09:30 25 MG Montelukast Sodium (SinguLAIR) 10 mg DAILY PO 02/18/25 09:00 03/20/25 08:59 02/19/25 09:29 10 MG Nitrofurantoin Macrocrystals (Macrobid) 100 mg BID PO 02/19/25 21:00 02/19/25 15:30 DC Sodium Zirconium Cyclosilicate (Lokelma 10gm Powder) 10 gm TID PO 02/18/25 10:30 02/18/25 21:01 DC 02/18/25 21:06 10 GM Trazodone HCl (DesyREL/OlepTRO) 150 mg HS PO 02/17/25 21:00 03/19/25 20:59 02/18/25 20:26 150 MG DIAGNOSTICS / RADIOLOGY: [ ] ASSESSMENT: Acute hypoxemic respiratory failure, POA Acute SARs COVID 19 infection, POA Status post fall, POA Elevated troponin likely demand ischemia, POA History of multivessel coronary artery disease with multiple prior PCIs, POA History of ischemic cardiomyopathy with LVEF of 35-40%, POA History of carotid stenosis with prior history of Right carotid endarterectomy in 12/2023 and left carotid artery stent placement in 04/2024 History of TIA/CVA, POA Urinary tract infection, POA History of type 2 diabetes mellitus, POA History of significant orthostatic hypotension/dysautonomia, POA Obesity, POA Suspected CHANDLER, POA Acute on chronic lower back pain status post fall, POA Frailty, POA CKD stage 3, POA Macrocytosis, POA PLAN: Patient will be admitted to cardiac telemetry floor Acute hypoxemic respiratory failure, POA Acute SARs COVID 19 infection, POA Urinary tract infection, POA -Patient is currently needing 2 L supplemental O2 therapy by nasal cannula, patient is noted to be SARs COVID 19 positive as well -Continue with supplemental O2 therapy to maintain O2 saturations greater than 92% -Started on IV dexamethasone 6 mg daily due to O2 requirements -We will check COVID associated inflammatory markers including D-dimer, CRP, LDH and ferritin -Started on IV levofloxacin (day 2) 500 mg daily -Renal function will be monitored closely -Request consultation with pulmonology -Urine cultures grew enterococcus faecalis which is sensitive to ampicillin, Vancomycin, penicillin, nitrofurantoin. -So we changed levofloxacin to nitrofurantoin (day 1). Elevated troponin likely demand ischemia, POA History of multivessel coronary artery disease with multiple prior PCIs, POA History of ischemic cardiomyopathy with LVEF of 35-40%, POA History of carotid stenosis with prior history of Right carotid endarterectomy in 12/2023 and left carotid artery stent placement in 04/2024 -Troponin> 351> 399> 393 >193. -Continue with dual antiplatelet therapy with aspirin and Plavix, we will keep patient on DVT prophylaxis with Lovenox -We will trend cardiac panel to rule out ACS, patient has multiple cardiac comorbidities which puts her at high-risk, we will have Cardiology follow up with this patient, patient remains at risk of COVID associated myocarditis as well -Patient to continue with antihypertensive therapy with Clonidine 0.1 mg twice daily, hydralazine 50 mg b.i.d., isosorbide mononitrate 30 mg daily, losartan 25 mg daily, metoprolol succinate 25 mg b.i.d. -We are waiting for cardiac clearance and after that we can discharge her. Hyperkalemia -Today her potassium level is 4.8. -Will repeat her labs tomorrow. Frailty -We will see how patient progresses in the next 48-72 hours, we will request consultation with Physical therapy History of type 2 diabetes mellitus -We will start patient on sliding scale insulin and dose adjust Lantus based on blood glucose trend, anticipate patient will have steroid associated hyperglycemia, we will monitor blood glucose trend closely DVT prophylaxis: Enoxaparin ATTESTATION BY PHYSICIAN I have seen and examined the patient. I reviewed the documentation, medical decision making, and treatment plan as noted by the resident provider above. I agree with the findings and plan of care. Mingo Villanueva MD, AKSHAY MD Feb 19, 2025 16:28
--- NOTE | 2025-02-19 19:32 | HMCIMG ---
EXAM: CR Chest, 1 View. CLINICAL HISTORY: COVID+ COMPARISON: Radiograph dated February 17, 2025 FINDINGS: LUNGS: There is no mass, infiltrate, or acute pulmonary abnormality. PLEURAL SPACES: No evidence of pleural effusion or pneumothorax. MEDIASTINUM: The cardiomediastinal silhouette is within normal limits. BONES: No aggressive appearing osseous lesion seen. IMPRESSION: No acute cardiopulmonary pathology is evident. /[place]
--- NOTE | 2025-02-19 19:57 | NUR ---
D/C PLAN CM spoke to patient regarding d/c planning. Patient live with spouse. Has a provider 43 hrs/week to assist with ADLs. Patient has the following DME: walker, w/c, commode, nebulizer, and shower bench. Plan is to return home to same setting. CM discussed possible rehab but patient declined. CM to f/u for possible home o2 needs. Addendum: 02/19/25 at 1999 by KARIME EVANS CM Amended: Links added.
--- NOTE | 2025-02-19 20:18 | NUR ---
Pain medication Pt requesting pain medication. Pt states pain to back since fall at home prior to hospitalization. Pt states she would like dilaudid. Educated on eventual need to transition to oral pain management. Pt verbalizes understanding, but would still like IV pain medication at this time.
[2025-02-19] MEDS ORDERED: NITROFURANTOIN MONOHYD/M-CRYST 100 MG CAPSULE PO SCH (21:00)
--- NOTE | 2025-02-19 23:24 | PN ---
[facility] PROGRESS NOTE Date Patient Seen: Feb 19, 2025 Time of Visit: 13:20 Supervising Physician: DR. WAI RAY Primary Care Physician: [ ] Outpatient Specialists: [ ] Inpatient Consults: [BIS PROBLEM LIST: Covid +Viral infection Elevated troponin likely demand ischemia Acute cystitis, POA History of multivessel coronary artery disease with multiple prior PCIs, POA History of ischemic cardiomyopathy with LVEF of 35-40%, POA History of carotid stenosis with prior history of Right carotid endarterectomy in 12/2023 and left carotid artery stent placement in 04/2024 History of TIA/CVA, POA Type 2 diabetes mellitus, POA History of significant orthostatic hypotension/dysautonomia, POA Obesity, POA Suspected CHANDLER, undiagnosed/untreated POA Acute on chronic lower back pain status post fall, POA Frailty, POA CKD stage 3, POA PLAN SUMMARY: Supplemental oxygen as needed Patient on room air at this time No wheezing on exam-no need for dexamethasone INTERVAL HISTORY: Patient is a 59 year old gentleman, he is not in distress, no fever, chills, no chest pain hypoxemia has improved, still with residual cough, doing better, plan is to switch steroids to oral . We will continue monitoring closely. REVIEW OF SYSTEMS: 12 point ROS reviewed with patient. Pertinent positives mentioned above. Otherwise negative. PHYSICAL EXAM: GENERAL: alert, weak, awake oriented x 3 HEENT: EOMI, Sclera non icteric, moist mucosa NECK: Supple, no JVD, trachea midline LUNGS: Clear breath sounds bilaterally. No wheezes HEART: Regular rate and rhythm. Normal S1 and S2, without murmurs ABD: Abdomen soft, nontender. Bowel sounds present EXT: No clubbing cyanosis or edema NEURO: Alert and oriented to person, follows commands Vital Signs (last 8hr) Date Time Temp Pulse Resp B/P (MAP) Pulse Ox O2 Delivery O2 Flow Rate FiO2 02/19/25 20:06 65 135/68 02/19/25 20:00 99 Nasal Cannula* 1 24 02/19/25 19:47 98.6 64 18 135/58 99 Room Air 02/19/25 18:26 67 18 N/Cannula Low lpm 2.0 02/19/25 18:26 67 18 02/19/25 16:06 98.2 67 18 151/71 92 Nasal Cannula 1.0 LABS: Hematology Labs: Test 02/19/25 05:19 02/18/25 07:00 Range/Units White Blood Count 3.1 L 4.8-10.8 K/uL Red Blood Count 3.29 L 4.00-5.50 MIL/uL Hemoglobin 11.2 L 12.0-16.0 g/dL Hematocrit 33.5 L 36-48 % Mean Corpuscular Volume 101.8 H 79-99 fL Mean Corpuscular Hemoglobin 34.0 H 27.0-33.0 pg Mean Corpuscular Hemoglobin Concent 33.4 32.0-36.0 g/dL Red Cell Distribution Width 12.3 11.0-15.5 % Platelet Count 195 130-400 K/uL Mean Platelet Volume 9.7 7.5-10.5 fL Immature Granulocyte % (Auto) 1.6 H 0-1 % Neutrophils (%) (Auto) 77.6 H 40.0-77.0 % Lymphocytes (%) (Auto) 17.6 L 21.0-51.0 % Monocytes (%) (Auto) 2.9 L 3.0-13.0 % Eosinophils (%) (Auto) 0.0 0.0-8.0 % Basophils (%) (Auto) 0.3 0.0-5.0 % Neutrophils # (Auto) 2.4 1.8-7.7 K/uL Lymphocytes # (Auto) 0.6 L 1.0-4.8 K/uL Monocytes # (Auto) 0.1 0.1-1.0 K/uL Eosinophils # (Auto) 0.00 0.00-0.70 K/uL Basophils # (Auto) 0.01 0.00-0.20 K/uL Absolute Immature Granulocyte (auto 0.05 0-1 K/uL Nucleated Red Blood Cells 0.0 0.0-0.19 % Red Blood Cell Morphology See comments Chemistry Labs: Test 02/19/25 20:32 02/19/25 05:19 02/18/25 07:00 Range/Units Whole Blood Glucose 165 H 70-110 MG/DL Sodium Level 133 L 136-145 mmol/L Potassium Level 4.8 3.5-5.1 mmol/L Chloride Level 99 L 101-111 mmol/L Carbon Dioxide Level 26 21-32 mmol/L Blood Urea Nitrogen 52 H 7-18 mg/dL Creatinine 1.7 H 0.5-1.0 mg/dL Glomerular Filtration Rate Calc 34 >90 mL/min Random Glucose 301 H 70-105 mg/dL Total Calcium 8.3 L 8.5-10.1 mg/dL Magnesium Level 2.80 H 1.80-2.40 mg/dL C-Reactive Protein, Quantitative 18.60 H 0.5-3.0 mg/L Total Creatine Kinase 91 # 21-232 U/L Troponin I High Sensitivity 193.9 *H 4-50 ng/L DIAGNOSTICS / RADIOLOGY RESULTS: [ ] PLAN NEURO: Minimize central acting medications as possible. Maintain fall precautions, adequate lighting during the day PULMONARY: Supplemental 02 as needed. Maintain aspiration precautions at all times CARDIOVASCULAR: Follow hemodynamics. Vital signs per facility protocol GI & NUTRITION: Continue with nutritional support. Continue stool softeners and laxatives as needed. KIDNEYS & ELECTROLYTES: Strict monitoring of intake, output and overall fluid balance. Avoid nephrotoxic medications to the extent possible. Medications to be dosed according to renal function. Monitor electrolytes and replace as needed ENDOCRINE: Maintain blood glucose between 100-180 at all times. Hypoglycemia protocol in place INFECTIOUS DISEASE: Trend temperature, WBC and procalcitonin level Follow cultures, deescalate antibiotics as soon as possible. Panculture if new onset fever ONCOLOGY/HEMATOLOGY/COAGULATION: Monitor for s/s of bleeding Monitor hemoglobin, coagulation studies as needed SKIN: Pressure ulcer prevention per facility protocol Specialty mattress ORTHO/REHAB: Continue PT/OT Prophylaxis: Continue GI and DVT prophylaxis Code Status: Full Resuscitation Disposition: As per attending ATTESTATION BY PHYSICIAN Documentation assistance provided by a scribe, information recorded by the scribe was done at my direction and has been reviewed and validated by me." WAI RAY MD I personally scribed for WAI RAY MD ([email or web address]) on 02/19/25 at 23:24. Electronically submitted by Maribel Jackson ([id number]). WAI RAY MD Feb 19, 2025 23:24
[2025-02-20] VITALS (10 sets, daily range): BP systolic 142–189; BP diastolic 70–93; PULSE 65–86; RESP 18; TEMP 98–98.4; O2SAT 94–98
[2025-02-20 05:00] LABS: IMMATURE GRANULOCYTE ABSOLUTE 0.04 K/uL (0-1); NUCLEATED RED BLOOD CELLS 0.0 % (0.0-0.19); PLATELET COUNT (AUTO) 177 K/uL (130-400); RED BLOOD CELL COUNT(AUTO) 2.97 MIL/uL (4.00-5.50); RED CELL DISTRIBUTION WIDTH 12.4 % (11.0-15.5); WHITE BLOOD COUNT (AUTO) 4.4 K/uL (4.8-10.8)
[2025-02-20 05:26] LABS: ASPARTATE AMINOTRANSFERASE 19.0 U/L (10-37); CREATINE KINASE, TOTAL 38.0 U/L (21-232); CREATININE 1.4 mg/dL (0.5-1.0); GLOMERULAR FILTR. RATE CALC 43.0 mL/min (>90); GLUCOSE,RANDOM 181.0 mg/dL (70-105); LACTATE DEHYDROGENASE 153.0 U/L (81-234); PHOSPHORUS 4.5 mg/dL (2.5-4.9); SODIUM SERUM 140.0 mmol/L (136-145); TOTAL PROTEIN, SERUM 5.3 g/dL (6.0-8.3); UREA NITROGEN, BLOOD 46.0 mg/dL (7-18)
--- NOTE | 2025-02-20 07:04 | CONS ---
CONSULT NOTE: endocrinology consult chief complaint: dizziness/fall reason for consult: uncontrolled dm-2 Date of Service: 02/20/2025 HISTORY OF PRESENT ILLNESS: 59-year-old female with underlying history of coronary artery disease with prior history of PCI (with MELANY x2 to proximal and mid left circumflex, PCI to mid to distal LAD, PCI to distal RCA), CKD stage 3, orthostatic hypotension, hyperlipidemia, hypertension, history of carotid artery stenosis status post right carotid endarterectomy in 12/2023 and left carotid stent placement in 2023, history of TIA/CVA (2023), obstructive sleep apnea, type 2 diabetes mellitus, history of anemia, history of recurrent UTIs, obesity who presented to the ER for further evaluation after patient sustained a fall. Patient states that she felt disoriented today while she was using the bedside commode and slid off the chair hitting the back of the head as well as the lower back. Patient denies any syncope. She has been feeling ill over the last two days with rhinorrhea, congestion. Denies any shortness of breath or pleurisy. Reports being exposed to COVID in the family. Patient denies any chest pain. She was [place] [facility] [place] for significant dysautonomia and patient does have underlying history of significant orthostatic hypotension. She is followed by Dr. Lombardo with Cardiology as outpatient and she has underlying history of ischemic cardiomyopathy and multivessel coronary artery disease. Patient is also followed by Dr. Mcconnell as well for management of dysautonomia. On presentation to the hospital, patient was noted to be febrile with T-max of 100.6 F, heart rate of 93, blood pressure of 155/85 and she was needing 2 L of O2 supplementation by nasal cannula. Chest x-ray showed no significant infiltrates. Labs on presentation showed WBC count of 7100, hemoglobin of 12.3, MCV of 102.7. BMP on presentation showed sodium of 134, potassium of 5.0, BUN of 39, creatinine 1.6, high sensitivity cardiac troponin of 351 and patient was noted to be SARS COVID 19 positive. Patient is started on IV dexamethasone for management of SARs COVID 19 infection. hx of congestive heart failure with ischemic cardiomyopathy she recently restarted ozempic 0.5 mg weekly and jardiance 25 mg daily at home. tresiba is not started and was supposed to start 15 units daily. she is referred to nephrology. reports that glucose are controlled at home. refused to add any meds for dm-2 for home. hba1c 9.5% REVIEW OF SYSTEMS CONSTITUTIONAL: Fall today, reports having history of orthostasis NEUROLOGICAL: Denies headache, amaurosis fugax, motor weakness, sensory deficit, vertigo/spinning sensation, or tremors. ENT: Rhinorrhea, congestion CARDIOVASCULAR: Denies any exertional angina, dyspnea on exertion, orthopnea, paroxysmal nocturnal dyspnea, palpitations, life-threatening arrhythmias, claudication. PULMONARY: Denies any shortness of breath, cough, phlegm/sputum, hemoptysis, pleuritic chest pain. SLEEP: Denies morning headaches, daytime somnolence or napping. Denies difficulty falling asleep, staying asleep, waking from sleep. Denies knowledge of snoring. GASTROINTESTINAL: Denies any type of dysphagia to either liquids or solids. Denies nausea, vomiting, pyrosis, early satiety, abdominal pain, diarrhea, co nstipation, or changes in stool consistency or caliber. Denies coffee-ground emesis, hematemesis, hematochezia, or melanotic stools. GENITOURINARY: Denies frequency, urgency, nocturia, hematuria or incontinence (Storage/Irritative symptoms.) Low urinary stream, straining to void, urinary intermittency or hesitancy, splitting of the voiding stream, terminal dribbling. ENDOCRINOLOGIC: Denies polyuria, polydipsia, polyphagia or heat/cold intolerances. HEMATOLOGIC: Denies thrombophilia/previous clots, or coagulopathy/bleeding disorders. ONCOLOGIC: Denies personal history of malignancy. DERMATOLOGIC: Denies rashes or pruritus. PSYCHIATRIC: Denies any suicidal or homicidal ideation. Denies hallucinations. 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] PAST SURGICAL HISTORY: [Loop recorder, left femoral stent, history of cardiac catheterization and multiple prior PCIs, appendectomy, LEEP procedure, right carotid endarterectomy December 2023, left carotid artery stenting in April 2024 and colonoscopy ] PAST SOCIAL HISTORY: [Patient denies alcohol tobacco and recreational drug use , needs assistance with IADLs] FAMILY HISTORY: [Cancer, hypertension, diabetes and stroke] ] Coded Allergies: Penicillins (Unverified Allergy, Severe, hives, 01/19/14) ceftriaxone (Unverified Allergy, Severe, hives, 01/19/14) PHYSICAL EXAM GENERAL APPEARANCE: The patient is awake, alert, currently on 2 L of O2 supplementation by nasal cannula NEUROLOGICAL: Cranial nerves II-XII grossly intact. Neurological examination is nonfocal HEENT: Face is symmetric. Pupils are equal and reactive. Extraocular movements are intact. NECK: Supple. No JVD. No thyromegaly. No submental, submandibular, pre- /postauricular, occipital or supraclavicular lymphadenopathy. CHEST: Normal chest expansion. No Telemetry. LUNGS: Mild crackles noted at bilateral lung bases CARDIOVASCULAR: Regular. S1 and S2 normal. No appreciable rubs, murmurs or gallops. ABDOMEN: Soft, nontender, and nondistended. There is no rebound, voluntary guarding, or rigidity. : Deferred. No Madrigal. EXTREMITIES: Non-edematous and not cyanotic. No clubbing. Good capillary refill. SKIN: No skin breakdown. DIAGNOSTICS / RADIOLOGY: SERVICE 0800 REASON: cp ORDERING PHYSICIAN: LIYAH BILL MD PROCEDURE: CXR1VW - CHEST 1VW EXAM: CR Chest, 1 View. CLINICAL HISTORY: cp COMPARISON: Radiograph dated November 27, 2024 FINDINGS: LUNGS: There is no mass, infiltrate, or acute pulmonary abnormality. PLEURAL SPACES: No evidence of pleural effusion or pneumothorax. MEDIASTINUM: Stable cardiomegaly. Pulmonary vessels and interstitial markings are within normal limits. BONES: No acute osseous abnormality. IMPRESSION: No acute cardiopulmonary pathology is evident. /[place] DICTATED BY: MEETA BRADSHAW Jr., MD DATE: 02/17/251008 ELECTRONICALLY SIGNED BY: MEETA BRADSHAW Jr., MD DATE: 02/17/25 100 ASSESSMENT: Hyperglycemia with diabetes mellitus, POA she recently restarted ozempic 0.5 mg weekly and jardiance 25 mg daily at home. reports that glucose are controlled at home. hba1c 9.5% she did not start tresiba yet at home. hyperglycemia is exacerbated due to steroids. [Orthostatic hypotension, POA Acute hypoxemic respiratory failure, POA Acute SARs COVID 19 infection, POA Status post fall, POA Elevated troponin likely demand ischemia, POA History of multivessel coronary artery disease with multiple prior PCIs, POA History of ischemic cardiomyopathy with LVEF of 35-40%, POA History of carotid stenosis with prior history of Right carotid endarterectomy in 12/2023 and left carotid artery stent placement in 04/2024 History of TIA/CVA, POA Obstructive sleep apnea POA Uncontrolled hypertension POA Chronic anemia POA Coronary artery disease with cardiac stent x4 and left leg femoral stent POA Carotid artery stenosis POA CHF with ischemic cardiomyopathy POA History of CKD-3 and proteinuria PLAN: increase lantus 20 units daily start regular insulin 7 units qac before meals continue medium dose ssi monitor glucose qx6 hourly thanks for allowing me to participate in patient care and will continue to follow up. Vital Signs 02/19/25 02/20/25 20:00 04:24 Temp 98.4 Pulse 70 Resp 18 B/P (MAP) 142/70 Pulse Ox 96 O2 Delivery Room Air O2 Flow Rate 0 FiO2 21 Hematology Labs: Test 02/20/25 04:44 Range/Units White Blood Count 4.4 #L 4.8-10.8 K/uL Red Blood Count 2.97 L 4.00-5.50 MIL/uL Hemoglobin 10.2 L 12.0-16.0 g/dL Hematocrit 30.7 L 36-48 % Mean Corpuscular Volume 103.4 H 79-99 fL Mean Corpuscular Hemoglobin 34.3 H 27.0-33.0 pg Mean Corpuscular Hemoglobin Concent 33.2 32.0-36.0 g/dL Red Cell Distribution Width 12.4 11.0-15.5 % Platelet Count 177 130-400 K/uL Mean Platelet Volume 9.3 7.5-10.5 fL Immature Granulocyte % (Auto) 0.9 0-1 % Neutrophils (%) (Auto) 56.5 40.0-77.0 % Lymphocytes (%) (Auto) 28.6 21.0-51.0 % Monocytes (%) (Auto) 10.2 3.0-13.0 % Eosinophils (%) (Auto) 3.6 0.0-8.0 % Basophils (%) (Auto) 0.2 0.0-5.0 % Neutrophils # (Auto) 2.5 1.8-7.7 K/uL Lymphocytes # (Auto) 1.3 1.0-4.8 K/uL Monocytes # (Auto) 0.5 0.1-1.0 K/uL Eosinophils # (Auto) 0.16 0.00-0.70 K/uL Basophils # (Auto) 0.01 0.00-0.20 K/uL Absolute Immature Granulocyte (auto 0.04 0-1 K/uL Nucleated Red Blood Cells 0.0 0.0-0.19 % Chemistry Labs: Test 02/20/25 04:44 02/20/25 04:43 Range/Units Sodium Level 140 136-145 mmol/L Potassium Level 4.0 3.5-5.1 mmol/L Chloride Level 105 101-111 mmol/L Carbon Dioxide Level 31 21-32 mmol/L Blood Urea Nitrogen 46 H 7-18 mg/dL Creatinine 1.4 H 0.5-1.0 mg/dL Glomerular Filtration Rate Calc 43 >90 mL/min Random Glucose 181 H 70-105 mg/dL Total Calcium 7.7 L 8.5-10.1 mg/dL Phosphorus Level 4.5 2.5-4.9 mg/dL Magnesium Level 2.50 H 1.80-2.40 mg/dL Total Bilirubin 0.2 0.2-1.0 mg/dL Aspartate Amino Transf (AST/SGOT) 19 10-37 U/L Alanine Aminotransferase (ALT/SGPT) 24 12-78 U/L Alkaline Phosphatase 64 50-136 U/L Lactate Dehydrogenase 153 81-234 U/L Total Creatine Kinase 38 # 21-232 U/L Troponin I High Sensitivity 73.6 *H 4-50 ng/L C-Reactive Protein, Quantitative 10.00 H 0.5-3.0 mg/L B-Type Natriuretic Peptide 131 H 0-100 pg/mL Total Protein 5.3 L 6.0-8.3 g/dL Albumin 2.1 L 3.5-5.0 g/dL Whole Blood Glucose 166 H 70-110 MG/DL Current Medications Medications (Trade) Dose Ordered Sig/Rubi Route Start Time Stop Time Status Last Admin Dose Admin Aspirin (Aspirin 81mg Chew Tab) 81 mg DAILY PO 02/18/25 09:00 02/17/25 16:07 DC Aspirin (Aspirin 81mg Chew Tab) 81 mg DAILY PO 02/18/25 09:00 03/20/25 08:59 02/19/25 09:29 81 MG Atorvastatin Calcium (LIPItor 40MG) 40 mg HS PO 02/17/25 21:00 03/19/25 20:59 02/19/25 20:07 40 MG Budesonide (Pulmicort 0.5 Mg/2ml) 0.5 mg BIDRESP IH 02/17/25 18:00 03/19/25 17:59 02/20/25 06:56 0.5 MG Clonidine HCl (CATApres 0.1 mg TAB) 0.1 mg BID PO 02/17/25 21:00 03/19/25 20:59 02/19/25 20:06 0.1 MG Clopidogrel Bisulfate (plaVIX 75MG) 75 mg DAILY PO 02/18/25 09:00 03/20/25 08:59 02/19/25 09:28 75 MG Dexamethasone (DeCADron 4 mg TAB) 6 mg DAILY PO 02/20/25 09:00 03/22/25 08:59 Dexamethasone Sodium Phosphate (dexaMETHasone 4MG/ML 1ML VIAL) 6 mg Q24H IVP 02/17/25 18:00 02/19/25 15:25 DC 02/18/25 20:25 6 MG Enoxaparin Sodium (Lovenox) 30 mg DAILY SQ 02/18/25 09:00 03/20/25 08:59 02/19/25 09:28 30 MG Furosemide (LASix 40MG TAB) 40 mg DAILY PO 02/18/25 09:00 03/20/25 08:59 02/19/25 09:31 40 MG Gabapentin (NEURontin 300 MG CAP) 300 mg TID PO 02/17/25 21:00 03/19/25 20:59 02/19/25 20:07 300 MG Hydralazine HCl ([id number] TAB) 50 mg BID PO 02/17/25 21:00 03/19/25 20:59 02/19/25 20:06 50 MG Insulin Glargine (LANtus 100 UNITS/ML 10 ML VIAL) 15 units DAILY SQ 02/18/25 09:00 02/18/25 17:01 DC Insulin Glargine (LANtus 100 UNITS/ML 10 ML VIAL) 15 units PM SQ 02/18/25 21:00 02/19/25 12:01 DC 02/18/25 21:06 15 UNITS Insulin Glargine (LANtus 100 UNITS/ML 10 ML VIAL) 20 units PM SQ 02/19/25 21:00 03/21/25 20:59 02/19/25 20:58 20 UNITS Insulin Human Regular (humuLIN R 100 UNIT/ML 3ML) 5 unit TIDAC SQ 02/18/25 17:00 02/19/25 11:59 DC 02/18/25 17:46 5 UNIT Insulin Human Regular (humuLIN R 100 UNIT/ML 3ML) 7 unit TIDAC SQ 02/19/25 17:00 03/21/25 16:59 02/19/25 16:19 7 UNIT Insulin Human Regular (humuLIN R 100 UNIT/ML 3ML) INSULIN SLIDING SCAL... ACHS SQ 02/17/25 16:30 03/19/25 16:29 02/19/25 16:18 12 UNIT Isosorbide Mononitrate (Imdur 30mg Sr) 30 mg DAILY PO 02/18/25 09:00 03/20/25 08:59 02/19/25 09:30 30 MG Levofloxacin/ Dextrose 100 ml @ 100 mls/hr Q24H IV 02/17/25 15:00 02/18/25 13:37 DC 02/17/25 17:12 100 MLS/HR Levofloxacin/ Dextrose 100 ml @ 100 mls/hr Q24H IV 02/18/25 17:00 02/28/25 16:59 02/19/25 16:19 100 MLS/HR Linezolid (Zyvox) 600 mg Q12H PO 02/19/25 15:30 03/01/25 15:29 02/20/25 03:34 600 MG Losartan Potassium (CozAAR 25MG TAB) 25 mg DAILY PO 02/18/25 09:00 03/20/25 08:59 02/18/25 08:54 25 MG Metoprolol Succinate (TopROL XL) 25 mg BID PO 02/17/25 21:00 03/19/25 20:59 02/19/25 20:05 25 MG Montelukast Sodium (SinguLAIR) 10 mg DAILY PO 02/18/25 09:00 03/20/25 08:59 02/19/25 09:29 10 MG Nitrofurantoin Macrocrystals (Macrobid) 100 mg BID PO 02/19/25 21:00 02/19/25 15:30 DC Sodium Zirconium Cyclosilicate (Lokelma 10gm Powder) 10 gm TID PO 02/18/25 10:30 02/18/25 21:01 DC 02/18/25 21:06 10 GM Trazodone HCl (DesyREL/OlepTRO) 150 mg HS PO 02/17/25 21:00 03/19/25 20:59 02/19/25 20:05 150 MG DELONTE LEA MD Feb 20, 2025 07:04
[2025-02-20] MEDS ORDERED: MACR100 PO (14:14)
[2025-02-20] MEDS: LACTULOSE 20 GM/30 ML UDCUP PO PRN (14:46)
--- NOTE | 2025-02-20 15:20 | NUR ---
DISCHARGE DISCHARGE PENDING O2 WALK STUDY AND MED/REC.
--- NOTE | 2025-02-20 16:41 | CONS ---
[facility] CARDIOLOGY CONSULTATION NOTE Date Patient Seen: Feb 20, 2025 Time of Visit: 16:30 Reason for Consultation: [Elevated troponin ] History of Present Illness: [[Patient is a 59 yo F that follows up in Cardiology Clinic with Dr. Rucih michelle, with PMH of Asthma, Coronary artery disease (with MELANY x2 proximal and mid LCx, 2 MELANY mid to distal LAD, MELANY in distal RCA), CKD, hyperlipidemia, hypertension, carotid artery stenosis s/p R CEA 12/2023 and L Carotid Stent 05/01/2024, TIA/CVA, obstructive sleep apnea, diabetes type 2, anemia and obesity who presented to the ER for further evaluation after patient sustained a fall. Patient states that she felt disoriented today while she was using the bedside commode and slid off the chair hitting the back of the head as well as the lower back. Patient denies any syncope. She was previously hospitalized in [facility] [place] in 01/2024 for significant dysautonomia and patient does have underlying history of significant orthostatic hypotension. creatinine 1.6, high sensitivity cardiac troponin of 351 and patient was noted to be SARS COVID 19 positive. Presenting ECG sinus rhythm with LVH with a strain pattern with no acute ischemia.] Past Medical History: [Refer to chart ] Past Surgical History: [Refer to HPI ] Family History: [Refer to HPI ] Social History: [Refer to HPI ] Habits: [Never] smoker. [Denies] alcohol consumption. [Denies] illicit drug use Review of Systems: A review of12 point system was negative set per HPI Physical Examination: GENERAL: [No acute distress.] HEAD: [Normal with no signs of head trauma.] EYES: [PERRLA, EOMI, conjunctiva and sclera normal.] ENT: [Hearing grossly intact, normal oropharynx.] NECK: [Supple without JVD. There is no tenderness, lymphadenopathy, or masses. No thyromegaly. Normal carotid upstrokes without bruits.] LUNGS: [Clear breath sounds bilaterally. . No wheezes, or rhonchi.] HEART: [Normal rate and rhythm. Normal S1 and S2 without mumurs, gallop or rub.] VASC: [Peripheral pulses +2 bilaterally.] ABD: [Bowel sounds normal, soft, nontender, no masses, no organomegaly. No audible bruits.] : [Not examined] LYMPH: [No lymphadenopathy noted.] EXT: [No clubbing, cyanosis or edema.] SKIN: [No rashes or lesions noted.] NEURO: [Awake, alert, and oriented x3. No focal sensory or strength deficits noted.] Vital Signs (last 8hr) Date Time Temp Pulse Resp B/P (MAP) Pulse Ox O2 Delivery O2 Flow Rate FiO2 02/20/25 15:20 82 18 21 86 18 21 02/20/25 12:39 98.2 65 18 153/72 98 Room Air 1.0 02/20/25 09:44 68 18 150/73 Nasal Cannula 1.0 02/20/25 09:10 78 189/93 02/20/25 08:32 98.1 78 18 189/93 97 Nasal Cannula 1.0 Laboratory: [ ] Hematology Labs: Test 02/20/25 04:44 Range/Units White Blood Count 4.4 #L 4.8-10.8 K/uL Red Blood Count 2.97 L 4.00-5.50 MIL/uL Hemoglobin 10.2 L 12.0-16.0 g/dL Hematocrit 30.7 L 36-48 % Mean Corpuscular Volume 103.4 H 79-99 fL Mean Corpuscular Hemoglobin 34.3 H 27.0-33.0 pg Mean Corpuscular Hemoglobin Concent 33.2 32.0-36.0 g/dL Red Cell Distribution Width 12.4 11.0-15.5 % Platelet Count 177 130-400 K/uL Mean Platelet Volume 9.3 7.5-10.5 fL Immature Granulocyte % (Auto) 0.9 0-1 % Neutrophils (%) (Auto) 56.5 40.0-77.0 % Lymphocytes (%) (Auto) 28.6 21.0-51.0 % Monocytes (%) (Auto) 10.2 3.0-13.0 % Eosinophils (%) (Auto) 3.6 0.0-8.0 % Basophils (%) (Auto) 0.2 0.0-5.0 % Neutrophils # (Auto) 2.5 1.8-7.7 K/uL Lymphocytes # (Auto) 1.3 1.0-4.8 K/uL Monocytes # (Auto) 0.5 0.1-1.0 K/uL Eosinophils # (Auto) 0.16 0.00-0.70 K/uL Basophils # (Auto) 0.01 0.00-0.20 K/uL Absolute Immature Granulocyte (auto 0.04 0-1 K/uL Nucleated Red Blood Cells 0.0 0.0-0.19 % Chemistry Labs: Test 02/20/25 16:09 02/20/25 04:44 Range/Units Whole Blood Glucose 232 H 70-110 MG/DL Sodium Level 140 136-145 mmol/L Potassium Level 4.0 3.5-5.1 mmol/L Chloride Level 105 101-111 mmol/L Carbon Dioxide Level 31 21-32 mmol/L Blood Urea Nitrogen 46 H 7-18 mg/dL Creatinine 1.4 H 0.5-1.0 mg/dL Glomerular Filtration Rate Calc 43 >90 mL/min Random Glucose 181 H 70-105 mg/dL Total Calcium 7.7 L 8.5-10.1 mg/dL Phosphorus Level 4.5 2.5-4.9 mg/dL Magnesium Level 2.50 H 1.80-2.40 mg/dL Total Bilirubin 0.2 0.2-1.0 mg/dL Aspartate Amino Transf (AST/SGOT) 19 10-37 U/L Alanine Aminotransferase (ALT/SGPT) 24 12-78 U/L Alkaline Phosphatase 64 50-136 U/L Lactate Dehydrogenase 153 81-234 U/L Total Creatine Kinase 38 # 21-232 U/L Troponin I High Sensitivity 73.6 *H 4-50 ng/L C-Reactive Protein, Quantitative 10.00 H 0.5-3.0 mg/L B-Type Natriuretic Peptide 131 H 0-100 pg/mL Total Protein 5.3 L 6.0-8.3 g/dL Albumin 2.1 L 3.5-5.0 g/dL Diagnostics / Radiology: [Copy/Paste Echos/Imaging Report here] Assessment: 1. Dysautonomic orthostatic hypotension with concomitant hypertension. 2. Ischemic cardiomyopathy. 3. Heart failure with reduced ejection fraction. 4. Coronary artery disease status post PTCA/PCI to the mid left circumflex secondary to InStent restenosis 11/09/2024. 5. Longstanding type 2 diabetes mellitus (20+ years).[ ] Plan: [ # elevated troponin The patient presents to emergency department after sustaining mechanical fall. Patient denies syncopal event. On admission diagnosed COVID positive Presenting ECG sinus rhythm with LVH and strain pattern, with no acute ischemia Troponins mildly elevated with flattened trend. BNP 131, creatinine 1.4 Patient currently denies any chest pain, palpitations, dyspnea or any other anginal equivalents Prior 2D echocardiogram LVEF 35-40% global hypokinesis. Stage II diastolic dysfunction With the patient is endorsing ongoing symptoms we will plan for an ischemic evaluation as an outpatient No need for further CV testing at this time Thank you for this consult cardiology will sign off at this time the patient will follow up with clinic 1-2 weeks after discharge Reid michelle MD ] ATTESTATION BY PHYSICIAN I have seen and examined the patient, reviewed the above documentation, participated in medical decision making, made necessary modifications, and agree with the treatment plan as documented by my mid-level provider above. MD ROSSI Montes JAMES R MD Feb 20, 2025 16:41
--- NOTE | 2025-02-20 16:44 | NUR ---
DISCHARGE DISCHARGE INSTRUCTIONS GIVEN TO PATIENT AND PATIENT'S SPOUSE. BOTH VERBALIZE KNOWLEDGE AND UNDERSTANDING. PAPER PRESCRIPTION SCRIPT GIVEN TO PATIENT'S SPOUSE PATIENT HAS VISUAL IMPAIRMENT. PATIENT TO BE ESCORTED VIA WHEELCHAIR ONCE THEY ARE READY FOR WHEELCHAIR.
--- NOTE | 2025-02-20 17:38 | PN ---
[facility] PROGRESS NOTE Date Patient Seen: Feb 20, 2025 Time of Visit: 13:36 Supervising Physician: DR. WAI RAY Primary Care Physician: [ ] Outpatient Specialists: [ ] Inpatient Consults: [BIS PROBLEM LIST: Covid +Viral infection Elevated troponin likely demand ischemia Acute cystitis, POA History of multivessel coronary artery disease with multiple prior PCIs, POA History of ischemic cardiomyopathy with LVEF of 35-40%, POA History of carotid stenosis with prior history of Right carotid endarterectomy in 12/2023 and left carotid artery stent placement in 04/2024 History of TIA/CVA, POA Type 2 diabetes mellitus, POA History of significant orthostatic hypotension/dysautonomia, POA Obesity, POA Suspected CHANDLER, undiagnosed/untreated POA Acute on chronic lower back pain status post fall, POA Frailty, POA CKD stage 3, POA PLAN SUMMARY: Sign off this casea patient will need to complete 10 days of Decadron Follow up at the pulmonary clinic as an outpatient once she is discharge. Supplemental oxygen as needed Patient on room air at this time No wheezing on exam-no need for dexamethasone INTERVAL HISTORY: Patient is a 59 year old gentleman, he is not in distress, no fever, chills, no chest pain feeling much better, cough improving, no SOB, recommended to follow up as an outpatient at the pulmonary clinic and continue on Decadron to complete 10 days. REVIEW OF SYSTEMS: 12 point ROS reviewed with patient. Pertinent positives mentioned above. Otherwise negative. PHYSICAL EXAM: GENERAL: alert, weak, awake oriented x 3 HEENT: EOMI, Sclera non icteric, moist mucosa NECK: Supple, no JVD, trachea midline LUNGS: Clear breath sounds bilaterally. No wheezes HEART: Regular rate and rhythm. Normal S1 and S2, without murmurs ABD: Abdomen soft, nontender. Bowel sounds present EXT: No clubbing cyanosis or edema NEURO: Alert and oriented to person, follows commands Vital Signs (last 8hr) Date Time Temp Pulse Resp B/P (MAP) Pulse Ox O2 Delivery O2 Flow Rate FiO2 02/20/25 16:45 98.1 79 18 154/70 94 Nasal Cannula 1.0 02/20/25 15:20 82 18 21 86 18 21 02/20/25 12:39 98.2 65 18 153/72 98 Room Air 1.0 02/20/25 09:44 68 18 150/73 Nasal Cannula 1.0 LABS: Hematology Labs: Test 02/20/25 04:44 Range/Units White Blood Count 4.4 #L 4.8-10.8 K/uL Red Blood Count 2.97 L 4.00-5.50 MIL/uL Hemoglobin 10.2 L 12.0-16.0 g/dL Hematocrit 30.7 L 36-48 % Mean Corpuscular Volume 103.4 H 79-99 fL Mean Corpuscular Hemoglobin 34.3 H 27.0-33.0 pg Mean Corpuscular Hemoglobin Concent 33.2 32.0-36.0 g/dL Red Cell Distribution Width 12.4 11.0-15.5 % Platelet Count 177 130-400 K/uL Mean Platelet Volume 9.3 7.5-10.5 fL Immature Granulocyte % (Auto) 0.9 0-1 % Neutrophils (%) (Auto) 56.5 40.0-77.0 % Lymphocytes (%) (Auto) 28.6 21.0-51.0 % Monocytes (%) (Auto) 10.2 3.0-13.0 % Eosinophils (%) (Auto) 3.6 0.0-8.0 % Basophils (%) (Auto) 0.2 0.0-5.0 % Neutrophils # (Auto) 2.5 1.8-7.7 K/uL Lymphocytes # (Auto) 1.3 1.0-4.8 K/uL Monocytes # (Auto) 0.5 0.1-1.0 K/uL Eosinophils # (Auto) 0.16 0.00-0.70 K/uL Basophils # (Auto) 0.01 0.00-0.20 K/uL Absolute Immature Granulocyte (auto 0.04 0-1 K/uL Nucleated Red Blood Cells 0.0 0.0-0.19 % Chemistry Labs: Test 02/20/25 16:09 02/20/25 04:44 Range/Units Whole Blood Glucose 232 H 70-110 MG/DL Sodium Level 140 136-145 mmol/L Potassium Level 4.0 3.5-5.1 mmol/L Chloride Level 105 101-111 mmol/L Carbon Dioxide Level 31 21-32 mmol/L Blood Urea Nitrogen 46 H 7-18 mg/dL Creatinine 1.4 H 0.5-1.0 mg/dL Glomerular Filtration Rate Calc 43 >90 mL/min Random Glucose 181 H 70-105 mg/dL Total Calcium 7.7 L 8.5-10.1 mg/dL Phosphorus Level 4.5 2.5-4.9 mg/dL Magnesium Level 2.50 H 1.80-2.40 mg/dL Total Bilirubin 0.2 0.2-1.0 mg/dL Aspartate Amino Transf (AST/SGOT) 19 10-37 U/L Alanine Aminotransferase (ALT/SGPT) 24 12-78 U/L Alkaline Phosphatase 64 50-136 U/L Lactate Dehydrogenase 153 81-234 U/L Total Creatine Kinase 38 # 21-232 U/L Troponin I High Sensitivity 73.6 *H 4-50 ng/L C-Reactive Protein, Quantitative 10.00 H 0.5-3.0 mg/L B-Type Natriuretic Peptide 131 H 0-100 pg/mL Total Protein 5.3 L 6.0-8.3 g/dL Albumin 2.1 L 3.5-5.0 g/dL DIAGNOSTICS / RADIOLOGY RESULTS: [ ] PLAN NEURO: Minimize central acting medications as possible. Maintain fall precautions, adequate lighting during the day PULMONARY: Supplemental 02 as needed. Maintain aspiration precautions at all times CARDIOVASCULAR: Follow hemodynamics. Vital signs per facility protocol GI & NUTRITION: Continue with nutritional support. Continue stool softeners and laxatives as needed. KIDNEYS & ELECTROLYTES: Strict monitoring of intake, output and overall fluid balance. Avoid nephrotoxic medications to the extent possible. Medications to be dosed according to renal function. Monitor electrolytes and replace as needed ENDOCRINE: Maintain blood glucose between 100-180 at all times. Hypoglycemia protocol in place INFECTIOUS DISEASE: Trend temperature, WBC and procalcitonin level Follow cultures, deescalate antibiotics as soon as possible. Panculture if new onset fever ONCOLOGY/HEMATOLOGY/COAGULATION: Monitor for s/s of bleeding Monitor hemoglobin, coagulation studies as needed SKIN: Pressure ulcer prevention per facility protocol Specialty mattress ORTHO/REHAB: Continue PT/OT Prophylaxis: Continue GI and DVT prophylaxis Code Status: Full Resuscitation Disposition: As per attending ATTESTATION BY PHYSICIAN Documentation assistance provided by a scribe, information recorded by the scribe was done at my direction and has been reviewed and validated by me." WAI RAY I personally scribed for WAI RAY MD ([email or web address]) on 02/20/25 at 17:38. Electronically submitted by Maribel Jackson ([email or web address]). WAI RAY MD Feb 20, 2025 17:38
--- NOTE | 2025-02-20 22:37 | DS ---
Discharge Summary Hospital Course Summary: The patient is a 59-year-old female with a complex medical history including ischemic cardiomyopathy (EF 35-40%), multivessel coronary artery disease s/p PCI, carotid artery disease s/p right carotid endarterectomy and left carotid stenting, chronic kidney disease stage 3, diabetes mellitus type 2, obstructive sleep apnea, orthostatic hypotension with dysautonomia, recurrent UTIs, obesity, anemia, and prior TIA. She presented to the emergency department on February 17, 2025 after experiencing a mechanical fall while using the bedside commode. She reported feeling disoriented and weak but denied syncope or head trauma associated loss of consciousness. She also endorsed upper respiratory symptoms for the past 2 days, including rhinorrhea and nasal congestion. She had been recently exposed to family members with COVID-19. On arrival, she was febrile with a T-max of 100.6 F, hypertensive with blood pressure of 155/80 mmHg, heart rate 93 beats per minute, and requiring 2 L of oxygen via nasal cannula. Laboratory workup revealed mild leukopenia, hypokalemia (5.5), elevated BUN and creatinine (baseline CKD), and a positive SARS-CoV-2 PCR. High sensitivity troponins were mildly elevated with a downward trend. Urinalysis and culture were positive for Enterococcus faecalis, confirming a urinary tract infection. The patient was started on IV dexamethasone for COVID-19 related hypoxemic respiratory failure, later transitioned to oral Decadron. She also received levofloxacin for UTI treatment and a one time dose of Lokelma for hyperkalemia. Cardiology was consulted due to elevated troponins and her known cardiomyopathy EKG showed LVH and strain pattern without evidence of acute ischemia. No additi onal cardiac workup was required. Pulmonology was consulted and agreed with conservative management. Imaging including CT head and lumbar spine were negative for acute injury. The course of her hospital stay, the patient improved clinically, was weaned off oxygen, remained hemodynamically stable and tolerated oral intake without difficulty. At the time of discharge, she is alert and oriented, ambulatory, afebrile, and saturating well on room air. At discharge, the patient was prescribed a 9 day course of Decadron 6 mg, to take1 tablet by mouth once daily; a 5 day course of Paxlovid, 1 tablet daily for COVID-19; and a 10 day course of Macrobid 100 mg capsules, to be taken by mouth twice daily for treatment of UTI. The patient is advised to follow up with her primary care physician in 2-3 days, and with Cardiology and pulmonology within 2 weeks of discharge. Job Spotter(s): Cardiology Endocrinology Pulmonology Procedure(s): PATIENT: LEXX BROWER MR#: [id number] : 1965 SEX: F AGE: 59 LOCATION: ED ORDER 08 STATUS: REG ER REPORT#: [id number] SERVICE 08 REASON: cp ORDERING PHYSICIAN: LIYAH BILL MD PROCEDURE: CXR1VW - CHEST 1VW EXAM: CR Chest, 1 View. CLINICAL HISTORY: cp COMPARISON: Radiograph dated November 27, 2024 FINDINGS: LUNGS: There is no mass, infiltrate, or acute pulmonary abnormality. PLEURAL SPACES: No evidence of pleural effusion or pneumothorax. MEDIASTINUM: Stable cardiomegaly. Pulmonary vessels and interstitial markings are within normal limits. BONES: No acute osseous abnormality. IMPRESSION: No acute cardiopulmonary pathology is evident. /[place] DICTATED BY: MEETA BRADSHAW Jr., MD DATE: 02/17/251008 ELECTRONICALLY SIGNED BY: MEETA BRADSHAW Jr., MD DATE: 02/17/251008 PATIENT: LEXX BROWER MR#: [id number] : 1965 SEX: F AGE: 59 LOCATION: [facility] ORDER 0855 STATUS: ADM IN REPORT#: [id number] SERVICE 0854 REASON: fall ORDERING PHYSICIAN: LIYAH BILL MD PROCEDURE: HEAD WO - CT HEAD/BRAIN W/O CONTRAST OF THE BRAIN WITHOUT CONTRAST CLINICAL INDICATION: Fall TECHNIQUE: Multiple contiguous axial CT images were obtained through the brain without the administration of intravenous contrast. Coronal and sagittal reconstructions were also obtained. COMPARISON: None available FINDINGS: The ventricular system and cortical sulci demonstrate a normal size and configuration for the patient???s age. There are no intra- or extra-axial collections, mass effect, or midline shift. The basal cisterns are patent. The wilder-white matter differentiation is preserved. The midline structures and cervicomedullary junction are unremarkable. There is no evidence of acute intracranial hemorrhage or areas of acute infarction. Vascular calcification is present. No fractures are identified. The calvarium is unremarkable in appearance. No suspicious lytic or sclerotic osseous lesions are seen. The visualized portions of the sinuses are well aerated. The mastoid air cells are well pneumatized and well aerated. The visualized orbital structures are unremarkable in appearance. IMPRESSION: No CT evidence of an acute intracranial process. /[place] DICTATED BY: ERNST EVANS MD DATE: 02/17/251405 ELECTRONICALLY SIGNED BY: ERNST EVANS MD DATE: 02/17/251405 PATIENT: LEXX BROWER MR#: [id number] : 1965 SEX: F AGE: 59 LOCATION: [facility] ORDER 1557 STATUS: ADM IN REPORT#: [id number] SERVICE 1553 REASON: s/p fall today, acute on chronic lower back pain ORDERING PHYSICIAN: KEILY FERNÁNDEZ MD PROCEDURE: L SPIN WO - CT LUMBAR SPINE W/O CONTRAST EXAM: CT Lumbar Spine Without IV Contrast CLINICAL HISTORY: Fall today. Acute and chronic low back pain. TECHNIQUE: Spiral axial CT images through the lumbar spine were acquired, reconstructed in axial and sagittal projections, and imaged using soft tissue and bone algorithms. Reformatted/MPR images were performed. CT scan is done according to ALARA (As Low as Reasonably Achievable). CONTRAST: None. COMPARISON: Radiograph dated 07/11/14. FINDINGS: No acute fracture. Normal lordotic curvature. Mild multilevel spondylosis is evident by small marginal osteophytes and facet joint arthropathy. Normal vertebral body and disc heights. Normal bone density. Stent noted across left common iliac and external iliac veins. Multiple colonic diverticula noted. No evidence of diverticulitis. Moderate constipation. Bilateral perinephric fat stranding (right greater than left) that may reflect renal parenchymal disease, recommend correlation with laboratory parameters. Individual spinal levels are described as follows: T12-L1: No disc bulge or herniation. No neural foraminal, lateral recess or spinal canal stenosis. L1-L2: No disc bulge or herniation. No neural foraminal, lateral recess or spinal canal stenosis. L2-L3: No disc bulge or herniation. No neural foraminal, lateral recess or spinal canal stenosis. L3-L4: No disc bulge or herniation. No neural foraminal, lateral recess or spinal canal stenosis. L4-L5: 3 mm disc osteophyte complex bulge and facet joint arthropathy causing mild indentation on the anterior thecal sac and mild bilateral foraminal narrowing. No lateral recess stenosis. L5-S1: 2 mm disc osteophyte complex bulge and facet joint arthropathy causing mild indentation on the anterior thecal sac and mild bilateral foraminal narrowing. No lateral recess stenosis. IMPRESSIONS: No acute fracture or subluxation. Redemonstrated mild multilevel spondylosis. Mild indentation on the anterior thecal sac and mild bilateral foraminal narrowing at the L4-L5 and L5-S1 levels. Stent across left common iliac and external iliac veins. Multiple colonic diverticula. No evidence of diverticulitis. Moderate constipation. Bilateral perinephric fat stranding may reflect renal parenchymal disease, recommend correlation with laboratory parameters. /[place] DICTATED BY: MEETA BRADSHAW Jr., MD DATE: 02/17/251904 ELECTRONICALLY SIGNED BY: MEETA BRADSHAW Jr., MD DATE: 02/17/251904 PATIENT: LEXX BROWER MR#: [id number] : 1965 SEX: F AGE: 59 LOCATION: [facility] ORDER 08 STATUS: ADM IN REPORT#: [id number] SERVICE 06 REASON: neck pain, s/p fall ORDERING PHYSICIAN: KEILY FERNÁNDEZ MD PROCEDURE: C SPIN WO - CT CERVICAL SPINE W/O CONTRAST EXAM: CT Cervical Spine Without IV contrast. CLINICAL HISTORY: neck pain, s/p fall TECHNIQUE: Axial computed tomography images of the cervical spine without intravenous contrast. Sagittal and coronal reformatted images were generated. COMPARISON: None provided. FINDINGS: ALIGNMENT: Bony alignment is anatomic. DEGENERATIVE CHANGES: Mild multilevel degenerative changes. SOFT TISSUES: The prevertebral soft tissues are within normal limits. BONES: No fracture in the cervical spine. IMPRESSION: 1. No fracture or dislocation in the cervical spine. 2. Mild multilevel degenerative changes. /[place] DICTATED BY: JOEY DE LA O MD DATE: 02/17/251818 ELECTRONICALLY SIGNED BY: JOEY DE LA O MD DATE: 02/17/251818 PATIENT: LEXX BROWER MR#: [id number] : 1965 SEX: F AGE: 59 LOCATION: [facility] ORDER 230 STATUS: ADM IN REPORT#: [id number] SERVICE 06 REASON: COVID+ ORDERING PHYSICIAN: JODI BUCK MD PROCEDURE: CXR1VW - CHEST 1VW EXAM: CR Chest, 1 View. CLINICAL HISTORY: COVID+ COMPARISON: Radiograph dated February 17, 2025 FINDINGS: LUNGS: There is no mass, infiltrate, or acute pulmonary abnormality. PLEURAL SPACES: No evidence of pleural effusion or pneumothorax. MEDIASTINUM: The cardiomediastinal silhouette is within normal limits. BONES: No aggressive appearing osseous lesion seen. IMPRESSION: No acute cardiopulmonary pathology is evident. /[place] DICTATED BY: MEETA BRADSHAW Jr., MD DATE: 02/19/252030 ELECTRONICALLY SIGNED BY: MEETA BRADSHAW Jr., MD DATE: 02/19/252030 Assessment/Plan: ASSESSMENT: Acute hypoxemic respiratory failure, POA Acute SARs COVID 19 infection, POA Status post fall, POA Elevated troponin likely demand ischemia, POA History of multivessel coronary artery disease with multiple prior PCIs, POA History of ischemic cardiomyopathy with LVEF of 35-40%, POA History of carotid stenosis with prior history of Right carotid endarterectomy in 12/2023 and left carotid artery stent placement in 04/2024 History of TIA/CVA, POA Urinary tract infection, POA History of type 2 diabetes mellitus, POA History of significant orthostatic hypotension/dysautonomia, POA Obesity, POA Suspected CHANDLER, POA Acute on chronic lower back pain status post fall, POA Frailty, POA CKD stage 3, POA Macrocytosis, POA Discharge Instructions: Follow-up with the PCP in 2-3 days Follow-up with cardiology in 2 weeks Follow-up with pulmonology in 2 weeks Home Medications: Active Scripts Dexamethasone (Decadron) 4 Mg Tab, 6 MG/24HR PO AD for 9 Days, #9 TAB 0 Refills Take one tablet of Decadron 6 mg by mouth once daily for 9 days Prov:KRISTI MARISCAL MD 02/20/25 Nitrofurantoin/Nitrofuran Mac (Macrobid) 100 Mg Cap, 1 CAP PO BID for 10 Days, #20 CAP 0 Refills Prov:KRISTI MARISCAL MD 02/20/25 Nirmatrelvir/Ritonavir (Paxlovid 150-100 mg (Moderate)) 150 Mg (10)-100 Mg (10) Tab.ds.pk, 1 EACH PO DAILY for 5 Days, #5 TAB Prov:HUA GAN 02/19/25 Atorvastatin Calcium (LIPITOR) 40 Mg Tablet, 1 TAB PO HS for 30 Days, #30 TAB 0 Refills Prov:LATA REINOSO 01/25/25 Losartan Potassium (Cozaar) 25 Mg Tablet, 25 MG PO DAILY, #30 TAB Prov:NISHA RAMEY 01/25/25 Metoprolol Succinate (Metoprolol Succinate) 25 Mg Tab.er.24h, 1 TAB PO BID for 30 Days, #30 TAB 0 Refills Prov:NISHA RAMEY 01/25/25 Reported Medications Furosemide (Furosemide) 40 Mg Tablet, 1 TAB PO BID for 30 Days, #30 TAB 0 Refills 02/17/25 Gabapentin (Neurontin) 300 Mg Capsule, 1 CAP PO TID for 30 Days, #90 CAP 0 Refills 02/17/25 Trazodone HCl (Trazodone HCl) 150 Mg Tablet, 1 TAB PO HS for 30 Days, #30 TAB 0 Refills 02/17/25 Nitroglycerin (Nitroglycerin) 0.4 Mg Tab.subl, 1 TAB SL AD for chest pain, #25 TAB 0 Refills 1st sign of attack; may repeat every 5 mins; if pain persists after 3 in 15 min, medical attention is recommended 02/17/25 Albuterol Sulfate (Ventolin Hfa) 90 Mcg Hfa.aer.ad, 2 PUFF IH Q4HPRN PRN for wheezing for 30 Days, #18 GM 0 Refills 01/16/25 Montelukast Sodium (Montelukast Sodium) 10 Mg Tablet, 1 TAB PO DAILY for 30 Days, #30 TAB 0 Refills 01/16/25 Clopidogrel Bisulfate (Clopidogrel) 75 Mg Tablet, 1 TAB PO DAILY for 30 Days, #30 TAB 0 Refills 01/16/25 Empagliflozin (Jardiance) 10 Mg Tablet, 1 TAB PO DAILY for 30 Days, #30 TAB 0 Refills 01/16/25 Isosorbide Mononitrate (Isosorbide Mononitrate ER) 30 Mg Tab.er.24h, 30 MG PO DAILY, TAB 01/16/25 Hydralazine HCl (Hydralazine HCl) 50 Mg Tablet, 1 TAB PO BID for 30 Days, #60 TAB 0 Refills 01/16/25 Clonidine HCl (Clonidine HCl) 0.1 Mg Tablet, 0.1 MG PO BID, TAB 01/16/25 Ergocalciferol (Vitamin D2) (Vitamin D2) 1,250 Mcg (67098 Unit) Capsule, 1 CAP PO QWEEK for 28 Days, #4 CAP 0 Refills 01/16/25 Aspirin (ASPIRIN 81MG CHEW TAB) 81 Mg Tab.chew, 81 MG PO DAILY, TAB.CHEW 01/16/25 Discontinued Reported Medications Baclofen (Baclofen) 10 Mg Tablet, 10 MG PO HS, TAB 01/16/25 Trazodone HCl (Trazodone HCl) 100 Mg Tablet, 1 TAB PO HS for 30 Days, #30 TAB 0 Refills 01/16/25 Discontinued Scripts Levofloxacin (Levofloxacin) 500 Mg Tablet, 1 TAB PO DAILY for 5 Days, #5 TAB 0 Refills Prov:LATA REINOSOP 01/25/25 New Medications: Dexamethasone (Decadron) 4 Mg Tab 6 MG/24HR PO AD for 9 Days, #9 TAB 0 Refills Take one tablet of Decadron 6 mg by mouth once daily for 9 days Nirmatrelvir/Ritonavir (Paxlovid 150-100 mg (Moderate)) 150 Mg (10)-100 Mg (10) Tab.ds.pk 1 EACH PO DAILY for 5 Days, #5 TAB Nitrofurantoin/Nitrofuran Mac (Macrobid) 100 Mg Cap 1 CAP PO BID for 10 Days, #20 CAP 0 Refills Continued Medications: Albuterol Sulfate (Ventolin Hfa) 90 Mcg Hfa.aer.ad 2 PUFF IH Q4HPRN PRN for wheezing for 30 Days, #18 GM 0 Refills Aspirin (Aspirin 81MG Chew Tab) 81 Mg Tab.chew 81 MG PO DAILY, TAB.CHEW Atorvastatin Calcium (Lipitor) 40 Mg Tablet 1 TAB PO HS for 30 Days, #30 TAB 0 Refills Clonidine HCl (Clonidine HCl) 0.1 Mg Tablet 0.1 MG PO BID, TAB Clopidogrel Bisulfate (Clopidogrel) 75 Mg Tablet 1 TAB PO DAILY for 30 Days, #30 TAB 0 Refills Empagliflozin (Jardiance) 10 Mg Tablet 1 TAB PO DAILY for 30 Days, #30 TAB 0 Refills Ergocalciferol (Vitamin D2) (Vitamin D2) 1,250 Mcg (57517 Unit) Capsule 1 CAP PO QWEEK for 28 Days, #4 CAP 0 Refills Furosemide (Furosemide) 40 Mg Tablet 1 TAB PO BID for 30 Days, #30 TAB 0 Refills Gabapentin (Neurontin) 300 Mg Capsule 1 CAP PO TID for 30 Days, #90 CAP 0 Refills Hydralazine HCl (Hydralazine HCl) 50 Mg Tablet 1 TAB PO BID for 30 Days, #60 TAB 0 Refills Isosorbide Mononitrate (Isosorbide Mononitrate ER) 30 Mg Tab.er.24h 30 MG PO DAILY, TAB Losartan Potassium (Cozaar) 25 Mg Tablet 25 MG PO DAILY, #30 TAB Metoprolol Succinate (Metoprolol Succinate) 25 Mg Tab.er.24h 1 TAB PO BID for 30 Days, #30 TAB 0 Refills Montelukast Sodium (Montelukast Sodium) 10 Mg Tablet 1 TAB PO DAILY for 30 Days, #30 TAB 0 Refills Nitroglycerin (Nitroglycerin) 0.4 Mg Tab.subl 1 TAB SL AD for chest pain, #25 TAB 0 Refills 1st sign of attack; may repeat every 5 mins; if pain persists after 3 in 15 min, medical attention is recommended Trazodone HCl (Trazodone HCl) 150 Mg Tablet 1 TAB PO HS for 30 Days, #30 TAB 0 Refills Time spent arranging discharge: 1-30 minutes ATTESTATION BY PHYSICIAN I have seen and examined the patient. I reviewed the documentation, medical decision making, and treatment plan as noted by the resident provider above. I agree with the findings and plan of care. Mingo Villanueva MD, GERARDO MD Feb 20, 2025 22:37
[2025-02-20] MEDS ORDERED: DEXA4 PO (22:53)
== END 2025-02-20 17:05 | disposition home or self-care (01) | DRG 137 ==
LOC: EDH 07:56 → EDHIP 15:50 → 2AH 02-19 00:51
PROVIDERS: ADMIT Internal Medicine; ATTEND Internal Medicine
DX: U07.1 COVID-19 (principal); J96.01 Acute respiratory failure with hypoxia; I24.89 Other forms of acute ischemic heart disease; I13.0 Hypertensive heart and chronic kidney disease with heart failure and stage 1 through stage 4 chronic kidney disease, or unspecified chronic kidney disease; I50.20 Unspecified systolic (congestive) heart failure; E11.22 Type 2 diabetes mellitus with diabetic chronic kidney disease; B95.2 Enterococcus as the cause of diseases classified elsewhere; D64.9 Anemia, unspecified; D72.819 Decreased white blood cell count, unspecified; E11.65 Type 2 diabetes mellitus with hyperglycemia; N30.00 Acute cystitis without hematuria; E66.9 Obesity, unspecified; E78.00 Pure hypercholesterolemia, unspecified; N18.30 Chronic kidney disease, stage 3 unspecified; G89.29 Other chronic pain; D75.89 Other specified diseases of blood and blood-forming organs; G47.33 Obstructive sleep apnea (adult) (pediatric); G90.1 Familial dysautonomia [Riley-Day]; I25.10 Atherosclerotic heart disease of native coronary artery without angina pectoris; I25.5 Ischemic cardiomyopathy; I95.1 Orthostatic hypotension; J45.909 Unspecified asthma, uncomplicated; T38.0X5A Adverse effect of glucocorticoids and synthetic analogues, initial encounter; Y92.89 Other specified places as the place of occurrence of the external cause; Z68.28 Body mass index [BMI] 28.0-28.9, adult; Z79.84 Long term (current) use of oral hypoglycemic drugs; Z79.85 Long-term (current) use of injectable non-insulin antidiabetic drugs; Z79.899 Other long term (current) drug therapy; Z82.3 Family history of stroke; Z82.49 Family history of ischemic heart disease and other diseases of the circulatory system; Z83.3 Family history of diabetes mellitus; Z86.73 Personal history of transient ischemic attack (TIA), and cerebral infarction without residual deficits; Z88.0 Allergy status to penicillin; Z90.710 Acquired absence of both cervix and uterus; Z95.5 Presence of coronary angioplasty implant and graft
CPT/HCPCS: 36415; 36600; 70450; 71045; 72125; 72131; 80048; 80053; 80076; 81001; 82550; 82728; 82803; 82948; 83615; 83735; 83880; 84100; 84132; 84145; 84484; 85025; 85378; 85651; 86140; 87086; 87186; 87635; 87804; 93005; 94640; 94664; 94760; 99285; G0378; J1100; J1171; J1650; J1815; J1956; J2270; J2405; J8540

== ENCOUNTER 2025-02-26 10:08 | Emergency (ER) | payer MEDICAID, OTHER ==
[~2025-02-26] VITALS: Ht 175.3 cm; Wt 79.4 kg
[~2025-02-26 10:08] MED LIST changes: -BACL10TA PO; +DEXA4 PO; +FURO40TA5 PO; +GABA300C PO; -LEVO-70 PO; +MACR100 PO; +NIRM1TAB7 PO; +NITR0.4T50 SL; -TRAZ-187 PO; +TRAZ150T79 PO
[2025-02-26 10:35] LABS: IMMATURE GRANULOCYTE ABSOLUTE 0.68 K/uL (0-1); NUCLEATED RED BLOOD CELLS 0.0 % (0.0-0.19); PLATELET COUNT (AUTO) 397 K/uL (130-400); RED BLOOD CELL COUNT(AUTO) 4.14 MIL/uL (4.00-5.50); RED CELL DISTRIBUTION WIDTH 12.0 % (11.0-15.5); WHITE BLOOD COUNT (AUTO) 12.0 K/uL (4.8-10.8)
[2025-02-26 10:47] LABS: INR 0.94 (0.85-1.15)
--- NOTE | 2025-02-26 10:49 | HMCIMG ---
EXAM: CR Chest, 1 View. CLINICAL HISTORY: Shortness of breath COMPARISON: 02/19/25 9:41 EDT CR - CHEST 1VW FINDINGS: LUNGS: There is no mass, infiltrate, or acute pulmonary abnormality. PLEURAL SPACES: No pleural effusion or pneumothorax. MEDIASTINUM: The cardiomediastinal silhouette is within normal limits. BONES: No acute osseous abnormality. IMPRESSION: No acute cardiopulmonary pathology is evident. /[place]
[2025-02-26 10:52] LABS: ASPARTATE AMINOTRANSFERASE 19.0 U/L (10-37); CREATININE 1.3 mg/dL (0.5-1.0); GLOMERULAR FILTR. RATE CALC 47.0 mL/min (>90); SODIUM SERUM 130.0 mmol/L (136-145); TOTAL PROTEIN, SERUM 6.5 g/dL (6.0-8.3); UREA NITROGEN, BLOOD 60.0 mg/dL (7-18)
[2025-02-26 10:54] LABS: GLUCOSE,RANDOM 500.0 mg/dL (70-105)
[2025-02-26] MEDS: 0.9%NACL 1000ML 1,000 ML IV ONE (11:25)
--- NOTE | 2025-02-26 12:20 | EKG ---
[facility] Test Date: 2025-02-26 Test Time: 12:16:29 Pat Name: LEXX BROWER Department: ED Room: Gender: F Upper Inspector: [id number] : 1965 Requested By: FREDO DOSS Order Number: [id number] Reading MD: Reid Lombardo Measurements Intervals [place] Rate: 70 P: 58 CA: 159 QRS: 36 QRSD: 94 T: 126 QT: 469 QTc: 505 Interpretive Statements Sinus rhythm Probable left atrial enlargement Abnormal T, consider ischemia, lateral leads Compared to ECG 02/18/2025 11:53:50 T-wave abnormality now present Possible ischemia now present Electronically Signed On 02-26-2025 16:05:03 CDT by Reid Lombardo Please click the below link to view image of tracing.
[2025-02-26 13:02] VITALS: TEMP 97.5
--- NOTE | 2025-02-26 13:12 | HMCIMG ---
EXAM: CT Head Without IV contrast. CLINICAL HISTORY: HEADACHE, HYPERTENSIVE EMERGENCY TECHNIQUE: Axial computed tomography images of the head/brain without intravenous contrast. COMPARISON: CT images dated February 17, 2025 FINDINGS: New intraparenchymal hemorrhages within the bilateral parietal lobes with surrounding vasogenic edema noted within both parietal lobes. Hemorrhage on the right measures up to 2.0 x 1.0 cm and hemorrhage on the left measures up to 1.4 x 1.1 cm. There is no significant mass effect. Elsewhere the wilder-white matter differentiation is preserved. Ventricles are normal in caliber and configuration, and basal cisterns are patent. Orbits and globes are within normal limits. Paranasal sinuses and mastoid air cells are well-pneumatized. The calvarium is intact. IMPRESSION: 1. Bilateral parietal lobe intraparenchymal hemorrhages with surrounding vasogenic edema, measuring up to 2.0 x 1.0 cm on the right and 1.4 x 1.1 cm on the left, without significant mass effect. /[place]
--- NOTE | 2025-02-26 13:21 | ERN ---
General Chief Complaint: Hypertension Stated Complaint: HTN, WEAKNESS, BODY ACHES, HYPERGYCEMIA Time Seen by MD: 10:16 Time Seen by Midlevel: 10:16 Source: patient History of Present Illness Initial Comments Patient is a 59-year-old female presenting to the emergency department for evaluation of elevated blood pressure reading and elevated blood sugar readings at home. She also reports increased generalized body weakness, body aches. Patient reports being diagnosed with COVID six days ago. Allergies: Coded Allergies: Penicillins (Unverified Allergy, Severe, hives, 01/19/14) ceftriaxone (Unverified Allergy, Severe, hives, 01/19/14) Home Meds Active Scripts Dexamethasone (Decadron) 4 Mg Tab, 6 MG/24HR PO AD for 9 Days, #9 TAB 0 Refills Take one tablet of Decadron 6 mg by mouth once daily for 9 days Prov:KRISTI MARISCAL MD 02/20/25 Nitrofurantoin/Nitrofuran Mac (Macrobid) 100 Mg Cap, 1 CAP PO BID for 10 Days, #20 CAP 0 Refills Prov:KRISTI MARISCAL MD 02/20/25 Nirmatrelvir/Ritonavir (Paxlovid 150-100 mg (Moderate)) 150 Mg (10)-100 Mg (10) Tab.ds.pk, 1 EACH PO DAILY for 5 Days, #5 TAB Prov:HUA GAN 02/19/25 Atorvastatin Calcium (LIPITOR) 40 Mg Tablet, 1 TAB PO HS for 30 Days, #30 TAB 0 Refills Prov:LATA REINOSO 01/25/25 Losartan Potassium (Cozaar) 25 Mg Tablet, 25 MG PO DAILY, #30 TAB Prov:NISHA RAMEY 01/25/25 Metoprolol Succinate (Metoprolol Succinate) 25 Mg Tab.er.24h, 1 TAB PO BID for 30 Days, #30 TAB 0 Refills Prov:NISHA RAMEY 01/25/25 Reported Medications Furosemide (Furosemide) 40 Mg Tablet, 1 TAB PO BID for 30 Days, #30 TAB 0 Refills 02/17/25 Gabapentin (Neurontin) 300 Mg Capsule, 1 CAP PO TID for 30 Days, #90 CAP 0 Refills 02/17/25 Trazodone HCl (Trazodone HCl) 150 Mg Tablet, 1 TAB PO HS for 30 Days, #30 TAB 0 Refills 02/17/25 Nitroglycerin (Nitroglycerin) 0.4 Mg Tab.subl, 1 TAB SL AD for chest pain, #25 TAB 0 Refills 1st sign of attack; may repeat every 5 mins; if pain persists after 3 in 15 min, medical attention is recommended 02/17/25 Albuterol Sulfate (Ventolin Hfa) 90 Mcg Hfa.aer.ad, 2 PUFF IH Q4HPRN PRN for wheezing for 30 Days, #18 GM 0 Refills 01/16/25 Montelukast Sodium (Montelukast Sodium) 10 Mg Tablet, 1 TAB PO DAILY for 30 Days, #30 TAB 0 Refills 01/16/25 Clopidogrel Bisulfate (Clopidogrel) 75 Mg Tablet, 1 TAB PO DAILY for 30 Days, #30 TAB 0 Refills 01/16/25 Empagliflozin (Jardiance) 10 Mg Tablet, 1 TAB PO DAILY for 30 Days, #30 TAB 0 Refills 01/16/25 Isosorbide Mononitrate (Isosorbide Mononitrate ER) 30 Mg Tab.er.24h, 30 MG PO DAILY, TAB 01/16/25 Hydralazine HCl (Hydralazine HCl) 50 Mg Tablet, 1 TAB PO BID for 30 Days, #60 TAB 0 Refills 01/16/25 Clonidine HCl (Clonidine HCl) 0.1 Mg Tablet, 0.1 MG PO BID, TAB 01/16/25 Ergocalciferol (Vitamin D2) (Vitamin D2) 1,250 Mcg (33010 Unit) Capsule, 1 CAP PO QWEEK for 28 Days, #4 CAP 0 Refills 01/16/25 Aspirin (ASPIRIN 81MG CHEW TAB) 81 Mg Tab.chew, 81 MG PO DAILY, TAB.CHEW 01/16/25 Past Medical History Past Medical History: CHF, Diabetes-Type II, High Cholesterol, Hypertension, Other Medical History Other: BLIND Past Surgical History: Hysterectomy, Other Surgical History Other: CARDIAC STENTS, LEG STENTS Family History Family History: Negative Social History Social History: Negative, Lives with family Female( History) History: Not Applicable ROS Dictation CONSTITUTIONAL: Negative except for HPI HEAD/FACE: Negative except for HPI EENT: Negative except for HPI RESPIRATORY: Negative except for HPI GASTROINTESTINAL/ABDOMINAL: Negative except for HPI GENITOURINARY: Negative except for HPI MUSCULOSKELETAL: Negative except for HPI INTEGUMENTARY: Negative except for HPI NEUROLOGICAL/PSYCH: Negative except for HPI HEMATOLOGIC/LYMPHATIC: Negative except for HPI All Systems Negative, Except as noted above. 13 point review of systems assessed and all negative except for above. Physical Exam Physical Exam Dictation Vital Signs reviewed General Appearance: Alert, oriented x 3, no acute distress, well developed, nourished. Head and Face: non-traumatic. Eyes: PERRL, pink conjunctivas, eyelid no trauma, anterior chamber with arcus senilis. Ears: Pinnas intact and no signs of trauma or erythema ear canals clear and no discharge TM no erythema Nose: No discharge, no bleeding. Oropharynx: Mouth normal, tongue pink, pharynx clear,no erythema, tonsils no exudates, no abscesses noted, mucous membrane moist Neck: Supple, non-tender, no thyromegaly, no masses, no JVD, no bruits Breast:Deferred Chest:No tenderness, no crepitus, no paradoxical movement, no retractions Lungs:Clear, well-ventilated, symmetric, no rales, no wheezing, no rhonchi, no stridor, good breath sounds bilaterally Heart: Regular rate, regular rhythm, no murmur, no gallops Vascular: no peripheral edema, Abdomen: Soft, positive bowel sounds, nondistended, no guarding, nontender, no rebound, no masses no hepatomegaly, no splenomegaly, no Ferraro's sign, no hernias. Rectal: Deferred Genital: Deferred Neurological: Normal speech, motor function intact, sensory function intact Musculoskeletal: Neck nontender, full range of motion, back nontender, full range of motion, Extremities: nontender, full range of motion Skin: Color pink, dry, no turgor, no rash, no lacerations, no abrasions, no contusions. Lymphatic: Deferred Results Laboratory and Microbiology Lab and Micro Result Laboratory Tests Test 02/26/25 10:25 02/26/25 11:12 White Blood Count 12.0 K/uL (4.8-10.8) H Red Blood Count 4.14 MIL/uL (4.00-5.50) Hemoglobin 14.0 g/dL (12.0-16.0) Hematocrit 39.8 % (36-48) Mean Corpuscular Volume 96.1 fL (79-99) Mean Corpuscular Hemoglobin 33.8 pg (27.0-33.0) H Mean Corpuscular Hemoglobin Concent 35.2 g/dL (32.0-36.0) Red Cell Distribution Width 12.0 % (11.0-15.5) Platelet Count 397 K/uL (130-400) Mean Platelet Volume 9.0 fL (7.5-10.5) Immature Granulocyte % (Auto) 5.7 % (0-1) H Neutrophils (%) (Auto) 80.3 % (40.0-77.0) H Lymphocytes (%) (Auto) 9.6 % (21.0-51.0) L Monocytes (%) (Auto) 3.8 % (3.0-13.0) Eosinophils (%) (Auto) 0.0 % (0.0-8.0) Basophils (%) (Auto) 0.6 % (0.0-5.0) Neutrophils # (Auto) 9.7 K/uL (1.8-7.7) H Lymphocytes # (Auto) 1.2 K/uL (1.0-4.8) Monocytes # (Auto) 0.5 K/uL (0.1-1.0) Eosinophils # (Auto) 0.00 K/uL (0.00-0.70) Basophils # (Auto) 0.07 K/uL (0.00-0.20) Absolute Immature Granulocyte (auto 0.68 K/uL (0-1) Nucleated Red Blood Cells 0.0 % (0.0-0.19) White Cell Morphology Comment See comments Prothrombin Time 10.0 SEC (9.6-11.6) Prothromb Time International Ratio 0.94 (0.85-1.15) Activated Partial Thromboplast Time 23.7 SEC (26.3-35.5) L Sodium Level 130 mmol/L (136-145) L Potassium Level 4.6 mmol/L (3.5-5.1) Chloride Level 98 mmol/L (101-111) L Carbon Dioxide Level 26 mmol/L (21-32) Blood Urea Nitrogen 60 mg/dL (7-18) H Creatinine 1.3 mg/dL (0.5-1.0) H Glomerular Filtration Rate Calc 47 mL/min (>90) Random Glucose 500 mg/dL (70-105) *H Lactic Acid Level 2.9 mmol/L (0.8-2.5) H Total Calcium 8.7 mg/dL (8.5-10.1) Total Bilirubin 0.5 mg/dL (0.2-1.0) Direct Bilirubin 0.1 mg/dL (0.0-0.3) Aspartate Amino Transf (AST/SGOT) 19 U/L (10-37) Alanine Aminotransferase (ALT/SGPT) 29 U/L (12-78) Alkaline Phosphatase 105 U/L (50-136) Troponin I High Sensitivity 41 ng/L (4-50) Total Protein 6.5 g/dL (6.0-8.3) Albumin 3.0 g/dL (3.5-5.0) L Lipase 34 U/L (16-77) Whole Blood Ketones Quantitative 0.2 mmol/L (0.0-0.6) Labs Reviewed?: Yes MDM MDM: 59-year-old female presenting to the emergency department for evaluation of a severe headache, an elevated blood pressure readings at home. The patient also reports elevated blood sugar readings at home. She was diagnosed with COVID six days ago. On arrival with the patient appears to be tearful and in [id number] distress secondary to headache. Blood pressure on arrival was over 200 systolic. Patient was given a dose of hydralazine in the emergency department with little to no relief. A cardiac workup was initiated. CT scan of the head shows an obvious intracranial bleed. Neurosurgery was contacted based on the CT scan that appeared to show an intracranial bleed. Recommends transfer to [facility] and wants to be called back wants to report becomes available. Neurosurgery was consulted after the report resulted. Neurosurgery was contacted in the CT scan was acknowledged. Patient will be transferred to [facility]. Patient was started on nicardipine and Keppra Differential diagnosis: Hypertensive emergency, intracranial bleed, dehydration Rationale: Tests considered and ordered secondary to shared decision making include: Previous outside records reviewed: Old ER visits. Risk of complication and/or morbidity or mortality of patient management: None Medications-Per medication reconciliation Need for hospitalization: Patient does meet criteria for hospitalization. Need for emergency major/minor surgery: No There are no social concerns with this patient. Prescription drug management Prescriptions will include symptomatic care Patient's prior external medical records from other ER visits were reviewed by me as indicated. Prior testing and results from previous visits were reviewed. Prior tests were taken into account with medical decision making and resource utilization, independent historian/historians were used to obtain complete medical history. I independently interpreted the test that were performed, results were reviewed by me and considered findings on radiology if ordered. Medical management and examination interpretation discussions were had by me with other qualified healthcare professionals as indicated for the patient's care. ED Course Orders Procedure Category Date Status Time 12 Lead Ekg Tracing- EKG 02/26/25 Complete Technical 10:16 Cbc With Differential LAB 02/26/25 Complete 10:16 Basic Metabolic Panel LAB 02/26/25 Complete 10:16 Hepatic Function Panel LAB 02/26/25 Complete 10:16 Lactic Acid LAB 02/26/25 Complete 10:16 Lipase LAB 02/26/25 Complete 10:16 Pt And Ptt LAB 02/26/25 Complete 10:16 Troponin I High LAB 02/26/25 Complete Sensitivity 10:16 Urinalysis LAB 02/26/25 Logged W/Microscopic 10:16 Chest 1vw RAD 02/26/25 Resulted 10:16 Hydralazine 20mg Inj PHA 02/26/25 Complete (Apresoline 20mg In 10:30 0.9%Nacl 1000ml (Ns PHA 02/26/25 Complete 1000ml) 11:00 Insulin Regular, PHA 02/26/25 Complete Human 3ml (Humulin R 11:00 Ct Head/Brain W/O CT 02/26/25 Taken Contrast 10:56 Ketone Blood LAB 02/26/25 Complete Quantitative 10:57 Ondansetron 4mg Inj PHA 02/26/25 Complete (Zofran 4mg Inj) 11:30 Acetaminophen 500mg PHA 02/26/25 Complete Tab (Tylenol 500mg T 11:30 Levetiracetam 500 PHA 02/26/25 In Process Mg/5 Ml Sd V (Keppra 5 13:00 Nicardipine 25mg Inj PHA 02/26/25 In Process (Cardene 25mg Inj) 13:00 Compound Iv Misc PHA 02/26/25 In Process (Compound Iv Misc) 13:30 Current Medications Medications (Trade) Dose Ordered Sig/Rubi Route PRN Reason Start Time Stop Time Status Last Admin Dose Admin Acetaminophen (TYLenol 500MG TAB) 1,000 mg ONCE ONCE PO 02/26/25 11:30 02/26/25 11:31 DC 02/26/25 12:02 Hydralazine HCl (APRESOLine 20MG INJ) 20 mg ONCE ONCE IM 02/26/25 10:30 02/26/25 10:31 DC 02/26/25 10:57 Insulin Human Regular (humuLIN R 100 UNIT/ML 3ML) 7 unit ONCE ONCE IV 02/26/25 11:00 02/26/25 11:01 DC 02/26/25 11:08 Levetiracetam 1000 mg/Sodium Chloride 100 ml @ 400 mls/hr Q8H IV 02/26/25 13:00 03/28/25 12:59 Nicardipine HCl 25 mg/Sodium Chloride 250 ml @ 0 mls/hr PROTOCOL IV 02/26/25 13:00 03/28/25 12:59 Ondansetron HCl (zoFRAN 4MG INJ) 4 mg ONCE ONCE IVP 02/26/25 11:30 02/26/25 11:31 DC 02/26/25 12:00 Sodium Chloride 1,000 ml @ 0 mls/hr ONCE ONCE IV 02/26/25 11:00 02/26/25 11:01 DC 02/26/25 11:25 Vital Signs Date Time Temp Pulse Resp B/P (MAP) Pulse Ox O2 Delivery O2 Flow Rate FiO2 02/26/25 12:29 97.5 66 11 205/89 99 Room Air* 0 02/26/25 12:02 97.5 02/26/25 11:44 97.5 67 18 179/80 99 Room Air* 0 02/26/25 11:20 97.5 70 20 197/92 97 Room Air* 0 21 02/26/25 10:43 97.5 70 20 224/102 97 Room Air* 0 21 02/26/25 10:10 98.4 87 18 221/110 99 Room Air [address] [address] IMAGING REPORT Signed PATIENT: LEXX BROWER MR#: [id number] : 1965 SEX: F AGE: 59 LOCATION: ED ORDER [id number] STATUS: REG ER REPORT#: [id number] SERVICE [id number] REASON: HEADACHE, HYPERTENSIVE EMERGENCY ORDERING PHYSICIAN: BETO BROWER PROCEDURE: HEAD WO - CT HEAD/BRAIN W/O CONTRAST EXAM: CT Head Without IV contrast. CLINICAL HISTORY: HEADACHE, HYPERTENSIVE EMERGENCY TECHNIQUE: Axial computed tomography images of the head/brain without intravenous contrast. COMPARISON: CT images dated February 17, 2025 FINDINGS: New intraparenchymal hemorrhages within the bilateral parietal lobes with surrounding vasogenic edema noted within both parietal lobes. Hemorrhage on the right measures up to 2.0 x 1.0 cm and hemorrhage on the left measures up to 1.4 x 1.1 cm. There is no significant mass effect. Elsewhere the wilder-white matter differentiation is preserved. Ventricles are normal in caliber and configuration, and basal cisterns are patent. Orbits and globes are within normal limits. Paranasal sinuses and mastoid air cells are well-pneumatized. The calvarium is intact. IMPRESSION: 1. Bilateral parietal lobe intraparenchymal hemorrhages with surrounding vasogenic edema, measuring up to 2.0 x 1.0 cm on the right and 1.4 x 1.1 cm on the left, without significant mass effect. /[place] DICTATED BY: MEETA BRADSHAW Jr., MD DATE: 02/26/251410 ELECTRONICALLY SIGNED BY: MEETA BRADSHAW Jr., MD DATE: 02/26/251410 DX & DISP Disposition: Transfer ([facility]) Departure Impression: Primary Impression: Intraparenchymal hemorrhage of brain Additional Impressions: Uncontrolled hypertension, Diabetes mellitus with hyperglycemia Condition: Stable Referrals: TROY BERG MD (PCP) I have reviewed the case, and I agree with, Diagnosis and Plan I performed the substantive portion of the visit. I have reviewed and personally made and approve the management plan that is documented in the note by myself or the JAXON. I acknowledge for responsibility for the patient's management plan. BETO BROWER Feb 26, 2025 13:21
[2025-02-26] MEDS ORDERED: COMPOUND IV MISC 1 EACH IVSOLN MISC PRN (13:30)
--- NOTE | 2025-02-26 13:30 | NUR ---
TRANSFER REQUEST FOR NEUROSURGERY FOR HEAD BLEED PER MAN BARCENAS HE SPOKE WITH DR SNOW AND DR SNOW INTRUCT[place] [facility] [place]APITO [place]OT[place]
[2025-02-26] MEDS: leveTIRACEtam 500 MG/5 ML SD V 1,000 MG in 0.9%NACL 100ML 100 ML IV SCH (13:36)
--- NOTE | 2025-02-26 13:56 | NUR ---
TRANSFER CALL PLACED TO [facility] [place] TRAN[facility] SPOKE WITH HAROLDO INTAKE NURSE INFORMATION PROVIDED, CHAPITO WOOTEN
--- NOTE | 2025-02-26 14:44 | NUR ---
TRANSFER CALL BACK WITH ACCEPTANCE UNDER DR SEEMA BELL TO ROOM 4230 AND PRIMARY NURSE TO CALL REPORT TO [phone] AND EMS WHEN READY. CHAPITO WOOTEN
--- NOTE | 2025-02-26 15:24 | NUR ---
REPORT GIVEN TO MARII RN [place] [facility] [place] 1520 PT VITALS WNL NO DISTRESS. PT AAOX4 ABLE TO ANSWER QUESTIONS, FAMILT AT BEDSIDE. CALLED [facility] FOR TRANSPORT PENDING ARRIVAL.
[2025-02-26 17:40] VITALS: BP 154/70; PULSE 70; RESP 11; TEMP 98.3; O2SAT 100
--- NOTE | 2025-02-26 17:42 | NUR ---
EMS ARRIVED FOR TRANSPORT TO [facility] [place], PT AAOX4, STABLE NO DISTRESS VITALS WNL. PT GIVEN INSTRUCTION PRIOR TO TRANSPORT, DISCHARGE PACKET GIVEN TO EMS WITH CD. SPOUSE AT BEDSIDE WITH PT PERSONAL BELONGINGS.
== END 2025-02-26 17:46 | disposition short-term general hospital (02) ==
LOC: EDH 10:08
DX: I61.9 Nontraumatic intracerebral hemorrhage, unspecified (principal); I10 Essential (primary) hypertension; E11.65 Type 2 diabetes mellitus with hyperglycemia; I11.0 Hypertensive heart disease with heart failure; I50.9 Heart failure, unspecified; E78.00 Pure hypercholesterolemia, unspecified; Z79.02 Long term (current) use of antithrombotics/antiplatelets; Z79.52 Long term (current) use of systemic steroids; Z79.82 Long term (current) use of aspirin; Z79.84 Long term (current) use of oral hypoglycemic drugs; Z79.899 Other long term (current) drug therapy; Z88.0 Allergy status to penicillin; Z88.1 Allergy status to other antibiotic agents; Z90.710 Acquired absence of both cervix and uterus; Z95.5 Presence of coronary angioplasty implant and graft
CPT/HCPCS: 99285; 96365; 96375; 70450; 71045; 80076; 84484; 80048; 83690; 85025; 85610; 85730; 83605 ×2; 82010; 36415; 96376; 93005; 96372; J1815; J1953; J2270 ×2; J0360; J3490; J2405; J7050